=== PATIENT | female | born 1945 | race Caucasian/White ===

== ENCOUNTER → 2016-10-07 | Outpatient (CLI) | payer OTHER | LOC: MMPC 10:00 | PROVIDERS: ATTEND Orthopaedic Surgery | DX: M54.5 Low back pain (principal); M17.12 Unilateral primary osteoarthritis, left knee | CPT/HCPCS: 99213; G0463 ==

== ENCOUNTER → 2016-10-16 | Outpatient (CLI) | payer OTHER ==
--- NOTE | 2016-10-16 18:37 | DI ---
History low back pain with sciatic component. Procedure: Study performed on 1.5 [place] magnet and sagittal and axial projection with a variety of im aging sequences. Comparison examination: L-spine study dated 09/13/16 alignment is anatomic. The conus medullaris is well accommodated. T10-T11 shows normal discovertebral complex T11-T12 shows minimal posterior disc protrusion. No focal nerve record encroachment seen, however. Di scogenic pain may be present based upon protrusion T12-L1 is unremarkable. L1-L2 shows mild disc protrusion posteriorly without nerve encroachment. Discogenic pain may be prese nt.. L2-L3 shows widely patent foramina. Minimal posterior disc bulge L3-L4 shows moderate disc protrusion suggesting annular tear. The protrusion extends across the width of the disc space but no focal nerve encroachment is identified and no spinal stenosis is present. L4-L5 is unremarkable L5-S1 shows a mild degree of posterior disc protrusion. No foramen is narrowed. Facets are only mildly hypertrophic. Impression: Multilevel disc protrusions documented at T11-T12, L1-L2, L2-L3 and L5-S1. The disc protrusion is most evident at L3-4 indicating annular tear and this extends across the width of the disc margin. No focal nerve root encroachment is documented, however.
== END ==
LOC: MRI 08:34
PROVIDERS: ATTEND Orthopaedic Surgery
DX: M54.5 Low back pain (principal); M51.24 Other intervertebral disc displacement, thoracic region; M51.26 Other intervertebral disc displacement, lumbar region; M51.27 Other intervertebral disc displacement, lumbosacral region
CPT/HCPCS: 72148

== ENCOUNTER → 2016-10-17 | Outpatient (CLI) | payer OTHER | LOC: MMPC 09:00 | PROVIDERS: ATTEND Family Medicine | DX: Z79.01 Long term (current) use of anticoagulants (principal); Z51.81 Encounter for therapeutic drug level monitoring; Z95.2 Presence of prosthetic heart valve | CPT/HCPCS: 85610 ==

== ENCOUNTER → 2016-10-31 | Outpatient (CLI) | payer OTHER | LOC: MMPC 10:00 | PROVIDERS: ATTEND Orthopaedic Surgery | DX: M70.62 Trochanteric bursitis, left hip (principal) | CPT/HCPCS: 20610 ×2; 99213; G0463; J0702 ==

== ENCOUNTER → 2016-11-01 | Outpatient (CLI) | payer OTHER ==
[2016-11-01 12:37] LABS: BILIRUBIN,URINE NEGATIVE (NEG); CLARITY,URINE Slightly Clo (CLEAR); GLUCOSE, URINE (UA) NEGATIVE (NEG); LEUKOCYTE ESTERASE ,URINE NEGATIVE (NEG); NITRATE,URINE POSITIVE (NEG); OCCULT BLOOD,URINE Trace-intact (NEG); PROTEIN,URINE NEGATIVE (NEG); UROBILINOGEN,URINE 0.2 mg/dL (0.2)
[2016-11-01 12:42] LABS: URINE SAMPLE TYPE CLEAN CATCH URINE
[2016-11-01 12:44] LABS: BACTERIA,URINE MANY; SQUAMOUS EPITHELIAL CELL,UR RARE
== END ==
LOC: MOB LAB 10:28
PROVIDERS: ATTEND Nurse Practitioner Family
DX: R30.0 Dysuria (principal); N30.00 Acute cystitis without hematuria; R82.99 Other abnormal findings in urine
CPT/HCPCS: 81001; 87077; 87088; 87186

== ENCOUNTER → 2016-11-05 | Outpatient (CLI) | payer OTHER ==
[2016-11-05 12:20] LABS: ASPARTATE AMINO TRANSFERASE 28 IU/L (8-39); BILIRUBIN,TOTAL 0.4 mg/dL (0.3-1.2); BLOOD UREA NITROGEN 17 mg/dL (7-22); BUN/CREATININE RATIO 21.25 (6-20); CALCIUM 10.1 mg/dL (8.7-10.7); CHLORIDE 99 meq/L (98-112); CREATININE 0.8 mg/dL (0.50-1.20); EST GLOMERULAR FILTRATION > 60 (>60 ml/min/1.73m(2)); GLUCOSE 106 mg/dL (78-110); HDL CHOLESTEROL 48 mg/dL (40-150); SODIUM 136 meq/L (135-145); TRIGLYCERIDES 337 mg/dL (44-200)
[2016-11-05 13:17] LABS: FREE T4 (FREE THYROXINE) 1.34 ng/dL (0.93-1.71)
== END ==
LOC: MOB LAB 10:57
PROVIDERS: ATTEND Nurse Practitioner Family
DX: I10 Essential (primary) hypertension (principal); E03.9 Hypothyroidism, unspecified; E78.5 Hyperlipidemia, unspecified
CPT/HCPCS: 36415; 80048; 82247; 82465; 82550; 82977; 83718; 84075; 84439; 84443; 84450; 84460; 84478

== ENCOUNTER → 2016-11-12 | Outpatient (CLI) | payer OTHER | LOC: MMPC 10:00 | PROVIDERS: ATTEND Physician Assistant | DX: M62.838 Other muscle spasm (principal); R09.89 Other specified symptoms and signs involving the circulatory and respiratory systems; S22.000S Wedge compression fracture of unspecified thoracic vertebra, sequela; G95.9 Disease of spinal cord, unspecified; G40.109 Localization-related (focal) (partial) symptomatic epilepsy and epileptic syndromes with simple partial seizures, not intractable, without status epilepticus | CPT/HCPCS: 99214; G0463 ==

== ENCOUNTER → 2016-11-13 | Outpatient (CLI) | payer OTHER | LOC: MMPC 09:00 | PROVIDERS: ATTEND Nurse Practitioner Family | DX: Z79.01 Long term (current) use of anticoagulants (principal); Z51.81 Encounter for therapeutic drug level monitoring; Z95.2 Presence of prosthetic heart valve | CPT/HCPCS: 85610; 99203 ==

== ENCOUNTER → 2016-11-15 | Outpatient (CLI) | payer OTHER ==
[2016-11-15 10:14] LABS: BILIRUBIN,URINE NEGATIVE (NEG); CLARITY,URINE CLEAR (CLEAR); GLUCOSE, URINE (UA) NEGATIVE (NEG); LEUKOCYTE ESTERASE ,URINE TRACE (NEG); NITRATE,URINE NEGATIVE (NEG); OCCULT BLOOD,URINE NEGATIVE (NEG); PROTEIN,URINE TRACE mg/dl (NEG); UROBILINOGEN,URINE 0.2 mg/dL (0.2)
[2016-11-15 10:15] LABS: URINE SAMPLE TYPE CLEAN CATCH URINE
[2016-11-15 10:27] LABS: BACTERIA,URINE FEW; RBC,URINE 0-2 /hpf; SQUAMOUS EPITHELIAL CELL,UR FEW
== END ==
LOC: MOB LAB 09:44
PROVIDERS: ATTEND Nurse Practitioner Family
DX: R31.9 Hematuria, unspecified (principal)
CPT/HCPCS: 81001

== ENCOUNTER → 2016-11-19 | Outpatient (CLI) | payer OTHER ==
--- NOTE | 2016-11-19 10:53 | DI ---
MRI BRAIN W/O CN,11/19/2016 8:46 AM: Clinical History: Focal motor seizure. Previous Exam: None at this facility. Findings: Multiplanar MR images are obtained through the brain without contrast, and demonstrate normal, symmet natan ventricles with some mild diffuse age-related volume loss. There are 3 distinct foci of abnormally restricted diffusion within the right subcortical white matte r involving the frontal and parietal white matter. There is no mass, hemorrhage or midline shift. There are multiple scattered areas of increased FLAIR and T2 signal which correspond with the new areas of restricted diffusion, but several others which a re more chronic. The cerebellopontine angles are unremarkable. The intraorbital structures and paranasal sinuses are u nremarkable. Visualized portions of the upper cervical spine are within normal limits. The posterior fossa is norm al without evidence of Chiari malformation. Major vascular flow voids are unremarkable. Impression: New scattered areas of restricted diffusion within the right subcortical white matter consistent with small white matter ischemic events which have occurred within the last 21 days.
--- NOTE | 2016-11-19 11:14 | DI ---
US CAROTIDS B/L,11/19/2016 8:46 AM: Clinical History: Carotid bruit Previous Exam: August 25, 2014 Findings: Multiple grayscale and color Doppler sonographic images are obtained through the carotid systems bila terally. The right common carotid artery demonstrates a highly resistive waveform with a large amount of spect ral broadening. The flow is relatively slow with peak systolic velocities below 60 cm/s. There is a l arge amount of plaque formation throughout the entire right common carotid artery, bulb and the inter nal carotid artery. The left carotid system demonstrates a large amount of peripheral vascular disease as well with dominic l-appearing waveforms but with some elevated peak systolic velocity measuring 177 cm/s within the lef t common carotid artery. The ICA to CCA ratio on the right measured 1.2, left measured 0.5. The vertebral arteries demonstrate antegrade flow bilaterally. Impression: 1. Resistive, turbulent waveforms throughout the entire right carotid system with relatively low peak systolic velocities. This is worrisome for a stenosis of greater than 95% in the distal internal car otid artery. 2. Elevated peak systolic velocity within the left common carotid artery with relatively normal wavef orms. This corresponds with an estimated stenosis on the left of between 50 and 69%.
== END ==
LOC: MRI 08:39
PROVIDERS: ATTEND Physician Assistant
DX: G40.109 Localization-related (focal) (partial) symptomatic epilepsy and epileptic syndromes with simple partial seizures, not intractable, without status epilepticus (principal); R09.89 Other specified symptoms and signs involving the circulatory and respiratory systems
CPT/HCPCS: 70551; 93880

== ENCOUNTER → 2016-11-20 | Outpatient (CLI) | payer OTHER ==
--- NOTE | 2016-11-20 09:42 | DI ---
MRI CERVICAL SPINE W/O CN,11/20/2016 8:49 AM: Clinical History: Cervical myelopathy. Previous Exam: None at this facility. Findings: Multiplanar MR images are obtained through the cervical spine without contrast. Bony alignment is anatomic. No fractures are seen. Marrow signal is preserved. Vertebral body height is preserved. The posterior fossa is unremarkable. The major vascular flow voids are unremarkable. The prevertebral soft tissues are unremarkable. The spinal cord descends normally with normal course, caliber and signal characteristics. There is no evidence of Chiari malformation. Individual intervertebral disc spaces: C2/C3: No significant stenosis. C3/4: There is some disc desiccation and a 2 mm broad-based disc bulge eccentric to the left with lj e uncovertebral joint osteophytes contributing to mild left neural foraminal narrowing and mild centr al canal stenosis. C4/5: No significant stenosis. C5/6: No significant stenosis. C6/7: There is mild disc desiccation and a 2 mm broad-based disc bulge combining with some mild facet hypertrophy to cause no significant central canal nor neural foraminal narrowing. C7/T1: No significant stenosis. Impression: C3/4: There is some disc desiccation and a 2 mm broad-based disc bulge eccentric to the left with lj e uncovertebral joint osteophytes contributing to mild left neural foraminal narrowing and mild centr al canal stenosis. C4/5: No significant stenosis. C5/6: No significant stenosis. C6/7: There is mild disc desiccation and a 2 mm broad-based disc bulge combining with some mild facet hypertrophy to cause no significant central canal nor neural foraminal narrowing.
== END ==
LOC: MRI 08:39
PROVIDERS: ATTEND Physician Assistant
DX: G95.89 Other specified diseases of spinal cord (principal); M47.22 Other spondylosis with radiculopathy, cervical region
CPT/HCPCS: 72141

== ENCOUNTER → 2016-11-26 | Outpatient (CLI) | payer OTHER ==
[2016-11-26 09:24] LABS: BASOPHILS # (AUTO) 0.09 10*3/UL; BASOPHILS % (AUTO) 1.4 % (0-1); HEMATOCRIT 27.5 % (37.0-47.0); HEMOGLOBIN 8.2 g/dL (12.0-16.0); IMM GRAN % (AUTO) 0.2 % (0-5); IMM GRAN# (AUTO) 0.01 10*3/UL; LYMPHOCYTES # (AUTO) 1.62 10*3/uL; LYMPHOCYTES % (AUTO) 24.8 % (10-50); MEAN CORPUSCULAR HEMOGLOBIN 19.6 PG (27-31); MEAN CORPUSCULAR HGB CONC 29.8 g/dL (33-37); MEAN PLATELET VOLUME 9.9 FL (7.4-12.2); MONOCYTES # (AUTO) 0.52 10*3/UL (0.3-0.8); NEUTROPHILS # (AUTO) 4.17 10*3/UL; NEUTROPHILS % (AUTO) 63.6 % (50-80); RED BLOOD COUNT 4.18 10^6/uL (4.20-5.40); WHITE BLOOD COUNT 6.54 10^3/uL (4.8-10.8)
[2016-11-26 09:51] LABS: ASPARTATE AMINO TRANSFERASE 20 IU/L (8-39); BILIRUBIN,TOTAL 0.3 mg/dL (0.3-1.2); BLOOD UREA NITROGEN 20 mg/dL (7-22); CALCIUM 9.4 mg/dL (8.7-10.7); CHLORIDE 104 meq/L (98-112); CREATININE 0.8 mg/dL (0.50-1.20); EST GLOMERULAR FILTRATION > 60 (>60 ml/min/1.73m(2)); GLUCOSE 122 mg/dL (78-110); POTASSIUM 4.1 meq/L (3.8-5.2); SODIUM 140 meq/L (135-145)
[2016-11-26 10:06] LABS: PLATELET MORPHOLOGY COMMENT NORMAL MORPHOLOGY (NORM)
== END ==
LOC: LAB 09:00
PROVIDERS: ATTEND Radiology Diagnostic Radiology
DX: I65.21 Occlusion and stenosis of right carotid artery (principal)
CPT/HCPCS: 36415; 80053; 85025; 85610; 85730

== ENCOUNTER → 2016-12-12 | Outpatient (CLI) | payer OTHER | LOC: MMPC 09:00 | PROVIDERS: ATTEND Nurse Practitioner Family | DX: I63.8 Other cerebral infarction (principal); Z79.01 Long term (current) use of anticoagulants; Z51.81 Encounter for therapeutic drug level monitoring; Z95.2 Presence of prosthetic heart valve | CPT/HCPCS: 85610; 99214; G0463 ==

== ENCOUNTER → 2016-12-17 | Outpatient (CLI) | payer OTHER | LOC: MMPC 09:00 | PROVIDERS: ATTEND Nurse Practitioner Family | DX: Z79.01 Long term (current) use of anticoagulants (principal); Z51.81 Encounter for therapeutic drug level monitoring; Z95.2 Presence of prosthetic heart valve; I25.810 Atherosclerosis of coronary artery bypass graft(s) without angina pectoris; M81.0 Age-related osteoporosis without current pathological fracture; D50.9 Iron deficiency anemia, unspecified | CPT/HCPCS: 85610; 99214; G0463 ==

== ENCOUNTER → 2016-12-17 | Outpatient (CLI) | payer OTHER | LOC: MMPC 11:11 | PROVIDERS: ATTEND Internal Medicine | DX: I70.90 Unspecified atherosclerosis (principal); I73.9 Peripheral vascular disease, unspecified; M81.0 Age-related osteoporosis without current pathological fracture; F32.9 Major depressive disorder, single episode, unspecified; E78.5 Hyperlipidemia, unspecified; D64.89 Other specified anemias; Z79.01 Long term (current) use of anticoagulants; Z51.81 Encounter for therapeutic drug level monitoring; Z95.2 Presence of prosthetic heart valve ==

== ENCOUNTER → 2016-12-27 | Outpatient (CLI) | payer OTHER ==
[2016-12-27 10:20] LABS: BASOPHILS # (AUTO) 0.03 10*3/UL; BASOPHILS % (AUTO) 0.4 % (0-1); EOSINOPHILS # (AUTO) 0.22 10*3/UL; EOSINOPHILS % (AUTO) 3.1 % (0-8); HEMATOCRIT 26.3 % (37.0-47.0); HEMOGLOBIN 8.1 g/dL (12.0-16.0); LYMPHOCYTES # (AUTO) 1.25 10*3/uL; MEAN CORPUSCULAR HEMOGLOBIN 26.3 PG (27-31); MEAN CORPUSCULAR HGB CONC 30.8 g/dL (33-37); MEAN CORPUSCULAR VOLUME 85.4 FL (81-99); MEAN PLATELET VOLUME 10.8 FL (7.4-12.2); MONOCYTES # (AUTO) 0.43 10*3/UL (0.3-0.8); MONOCYTES % (AUTO) 6.1 % (5-15); NEUTROPHILS # (AUTO) 5.15 10*3/UL; NEUTROPHILS % (AUTO) 72.7 % (50-80); RED BLOOD COUNT 3.08 10^6/uL (4.20-5.40)
[2016-12-27 10:46] LABS: CHOL/HDL RATIO 4.88 RATIO (0-4.0); LDL CHOLESTEROL,CALCULATED 99.6 mg/dL
[2016-12-27 10:55] LABS: PLATELET MORPHOLOGY COMMENT NORMAL MORPHOLOGY (NORM); RBC MORPHOLOGY COMMENT SEE COMMENTS (NORM); WBC MORPHOLOGY COMMENT NORMAL MORPHOLOGY (NORM)
[2016-12-27 11:12] LABS: FREE T4 (FREE THYROXINE) 1.23 ng/dL (0.93-1.71)
== END ==
LOC: MOB LAB 09:41
PROVIDERS: ATTEND Nurse Practitioner Family
DX: D50.9 Iron deficiency anemia, unspecified (principal); E78.5 Hyperlipidemia, unspecified; I10 Essential (primary) hypertension; I70.90 Unspecified atherosclerosis; Z79.01 Long term (current) use of anticoagulants; Z51.81 Encounter for therapeutic drug level monitoring; Z95.2 Presence of prosthetic heart valve
CPT/HCPCS: 36415; 80061; 84439; 84443; 85025; 85610

== ENCOUNTER → 2016-12-28 | Outpatient (CLI) | payer OTHER ==
[2016-12-28 12:49] LABS: HEMATOCRIT 27.5 % (37.0-47.0); HEMOGLOBIN 8.6 g/dL (12.0-16.0)
== END ==
LOC: LAB 12:15
PROVIDERS: ATTEND Radiology Diagnostic Radiology
DX: D50.9 Iron deficiency anemia, unspecified (principal)
CPT/HCPCS: 36415; 85014; 85018

== ENCOUNTER → 2016-12-31 | Outpatient (CLI) | payer OTHER | LOC: MMPC 09:00 | PROVIDERS: ATTEND Internal Medicine | DX: Z79.01 Long term (current) use of anticoagulants (principal); Z51.81 Encounter for therapeutic drug level monitoring; Z95.2 Presence of prosthetic heart valve | CPT/HCPCS: 85610 ==

== ENCOUNTER → 2017-01-02 | Outpatient (CLI) | payer OTHER | LOC: MMPC 09:00 | PROVIDERS: ATTEND Internal Medicine | DX: Z79.01 Long term (current) use of anticoagulants (principal); Z51.81 Encounter for therapeutic drug level monitoring; Z95.2 Presence of prosthetic heart valve | CPT/HCPCS: 85610 ==

== ENCOUNTER → 2017-01-03 | Outpatient (CLI) | payer OTHER ==
[2017-01-03 11:01] LABS: HEMATOCRIT 27.3 % (37.0-47.0); HEMOGLOBIN 8.1 g/dL (12.0-16.0)
== END ==
LOC: MOB LAB 10:43
PROVIDERS: ATTEND Nurse Practitioner
DX: K92.1 Melena (principal); R71.0 Precipitous drop in hematocrit; Z09 Encounter for follow-up examination after completed treatment for conditions other than malignant neoplasm; Z87.19 Personal history of other diseases of the digestive system; Z79.01 Long term (current) use of anticoagulants
CPT/HCPCS: 36415; 85014; 85018; 99214; G0463

== ENCOUNTER → 2017-01-04 | Outpatient (CLI) | payer OTHER ==
[2017-01-04 14:08] LABS: HEMATOCRIT 28.4 % (37.0-47.0); HEMOGLOBIN 8.3 g/dL (12.0-16.0)
== END ==
LOC: LAB 13:55
PROVIDERS: ATTEND Nurse Practitioner
DX: K92.1 Melena (principal); R53.1 Weakness
CPT/HCPCS: 36415; 85014; 85018

== ENCOUNTER → 2017-01-09 | Outpatient (CLI) | payer OTHER ==
[2017-01-09 09:51] LABS: HEMOGLOBIN A1C 5.19 % (4.2-6.0)
== END ==
LOC: LAB 09:30
PROVIDERS: ATTEND Internal Medicine
DX: D50.9 Iron deficiency anemia, unspecified (principal); Z95.2 Presence of prosthetic heart valve; Z79.899 Other long term (current) drug therapy
CPT/HCPCS: 36415; 83036; 85018; 85610

== ENCOUNTER → 2017-01-16 | Outpatient (CLI) | payer OTHER | LOC: MMPC 09:00 | PROVIDERS: ATTEND Internal Medicine | DX: Z79.01 Long term (current) use of anticoagulants (principal); Z51.81 Encounter for therapeutic drug level monitoring; Z95.2 Presence of prosthetic heart valve | CPT/HCPCS: 85610 ==

== ENCOUNTER → 2017-01-21 | Outpatient (CLI) | payer OTHER | LOC: MMPC 09:00 | PROVIDERS: ATTEND Internal Medicine | DX: Z79.01 Long term (current) use of anticoagulants (principal); Z51.81 Encounter for therapeutic drug level monitoring; Z95.2 Presence of prosthetic heart valve | CPT/HCPCS: 85610 ==

== ENCOUNTER → 2017-01-27 | Outpatient (CLI) | payer OTHER | LOC: MMPC 09:00 | PROVIDERS: ATTEND Internal Medicine | DX: Z79.01 Long term (current) use of anticoagulants (principal); Z51.81 Encounter for therapeutic drug level monitoring; Z95.2 Presence of prosthetic heart valve | CPT/HCPCS: 85610 ==

== ENCOUNTER → 2017-02-03 | Outpatient (CLI) | payer OTHER ==
--- NOTE | 2017-02-03 17:07 | DI ---
XR ABDOMEN (KUB) SERGEI HEWITT,02/03/2017 2:19 PM: Clinical History: Abnormal serum iron levels. Previous Exam: None at this facility. 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 Mild degenerative changes of the spine are seen. Patient is status post vertebroplasty at multiple le vels of the thoracic spine. Postsurgical changes are seen within the chest. There is no free air. Postsurgical changes are seen of the groin area bilaterally. Impression: No acute findings.
== END ==
LOC: RAD 14:05
PROVIDERS: ATTEND Internal Medicine Gastroenterology
DX: R79.89 Other specified abnormal findings of blood chemistry (principal); D50.9 Iron deficiency anemia, unspecified
CPT/HCPCS: 74000

== ENCOUNTER → 2017-02-03 | Outpatient (CLI) | payer OTHER ==
[2017-02-03 09:34] LABS: BASOPHILS # (AUTO) 0.09 10*3/UL; EOSINOPHILS # (AUTO) 0.22 10*3/UL; EOSINOPHILS % (AUTO) 2.3 % (0-8); HEMOGLOBIN 10.3 g/dL (12.0-16.0); LYMPHOCYTES # (AUTO) 1.88 10*3/uL; MEAN CORPUSCULAR HEMOGLOBIN 25.2 PG (27-31); MEAN CORPUSCULAR HGB CONC 31.2 g/dL (33-37); MEAN CORPUSCULAR VOLUME 80.7 FL (81-99); MEAN PLATELET VOLUME 10.8 FL (7.4-12.2); MONOCYTES # (AUTO) 0.64 10*3/UL (0.3-0.8); MONOCYTES % (AUTO) 6.8 % (5-15); NEUTROPHILS # (AUTO) 6.61 10*3/UL; NEUTROPHILS % (AUTO) 69.8 % (50-80); RED BLOOD COUNT 4.09 10^6/uL (4.20-5.40)
[2017-02-03 10:14] LABS: PLATELET MORPHOLOGY COMMENT NORMAL MORPHOLOGY (NORM); RBC MORPHOLOGY COMMENT NORMAL MORPHOLOGY (NORM); WBC MORPHOLOGY COMMENT NORMAL MORPHOLOGY (NORM)
[2017-02-03 12:04] LABS: BUN/CREATININE RATIO 42.85 (6-20); CALCIUM 9.4 mg/dL (8.7-10.7); CHOL/HDL RATIO 6.47 RATIO (0-4.0)
[2017-02-03 12:34] LABS: FREE T4 (FREE THYROXINE) 0.99 ng/dL (0.93-1.71)
== END ==
LOC: LAB 09:11
PROVIDERS: ATTEND Internal Medicine
DX: E03.9 Hypothyroidism, unspecified (principal); E78.5 Hyperlipidemia, unspecified; D50.9 Iron deficiency anemia, unspecified; I10 Essential (primary) hypertension
CPT/HCPCS: 36415; 80048; 82247; 82465; 82550; 82977; 83718; 84075; 84439; 84443; 84450; 84460; 84478; 85025

== ENCOUNTER → 2017-02-04 | Outpatient (CLI) | payer OTHER ==
[2017-02-04 08:48] LABS: HEMATOCRIT 31.6 % (37.0-47.0); HEMOGLOBIN 9.9 g/dL (12.0-16.0); MEAN CORPUSCULAR HEMOGLOBIN 25.4 PG (27-31); MEAN CORPUSCULAR HGB CONC 31.3 g/dL (33-37); MEAN CORPUSCULAR VOLUME 81.2 FL (81-99); MEAN PLATELET VOLUME 10.6 FL (7.4-12.2); RED BLOOD COUNT 3.89 10^6/uL (4.20-5.40)
== END ==
LOC: LAB 08:26
PROVIDERS: ATTEND Internal Medicine
DX: K92.1 Melena (principal)
CPT/HCPCS: 85027

== ENCOUNTER 2017-02-05 08:33 | Outpatient (CLI) | payer OTHER ==
[2017-02-05 09:08] LABS: HEMATOCRIT 25.7 % (37.0-47.0); MEAN CORPUSCULAR HEMOGLOBIN 25.6 PG (27-31); MEAN CORPUSCULAR HGB CONC 31.1 g/dL (33-37); MEAN CORPUSCULAR VOLUME 82.1 FL (81-99); MEAN PLATELET VOLUME 10.7 FL (7.4-12.2); RED BLOOD COUNT 3.13 10^6/uL (4.20-5.40)
[2017-02-05] MEDS ORDERED: NORMAL SALINE 10 ML SYRINGE FLUSH IVP PRN (13:00)
[2017-02-05] MEDS ORDERED: NS 500 ML for Blood Transfusion PRIMARY IV SCH (15:00)
[2017-02-05] MEDS ORDERED: Sodium Chloride 0.9% 500 ML PRIMARY IV ONE (15:11)
[2017-02-05 15:19] LABS: HEMATOCRIT 22.5 % (37.0-47.0); MEAN CORPUSCULAR HEMOGLOBIN 25.3 PG (27-31); MEAN CORPUSCULAR HGB CONC 31.1 g/dL (33-37); MEAN CORPUSCULAR VOLUME 81.2 FL (81-99); MEAN PLATELET VOLUME 10.7 FL (7.4-12.2); RED BLOOD COUNT 2.77 10^6/uL (4.20-5.40)
[2017-02-05 20:50] VITALS: RESP 18
[2017-02-06 03:26] VITALS: TEMP 97.6
== END 2017-02-05 22:30 | disposition short-term general hospital (02) ==
LOC: IV THERAPY 08:33 → LAB 08:33 → IV THERAPY 22:30
PROVIDERS: ATTEND Internal Medicine
DX: D50.9 Iron deficiency anemia, unspecified (principal); K92.1 Melena
CPT/HCPCS: 36415; 36430 ×2; 85027; 86850; 86900; 86901; 86922; 99211; P9016; J7040

== ENCOUNTER 2017-02-05 17:35 | Emergency (ER) | payer OTHER ==
[2017-02-05 19:02] LABS: BASOPHILS # (AUTO) 0.05 10*3/UL; BASOPHILS % (AUTO) 0.4 % (0-1); EOSINOPHILS % (AUTO) 0.9 % (0-8); HEMATOCRIT 24.7 % (37.0-47.0); HEMOGLOBIN 7.8 g/dL (12.0-16.0); LYMPHOCYTES # (AUTO) 1.99 10*3/uL; MEAN CORPUSCULAR HEMOGLOBIN 25.7 PG (27-31); MEAN CORPUSCULAR HGB CONC 31.6 g/dL (33-37); MEAN CORPUSCULAR VOLUME 81.5 FL (81-99); MEAN PLATELET VOLUME 10.7 FL (7.4-12.2); MONOCYTES # (AUTO) 0.65 10*3/UL (0.3-0.8); MONOCYTES % (AUTO) 5.7 % (5-15); NEUTROPHILS # (AUTO) 8.67 10*3/UL; NEUTROPHILS % (AUTO) 75.4 % (50-80); RBC MORPHOLOGY COMMENT NORMAL MORPHOLOGY (NORM); RED BLOOD COUNT 3.03 10^6/uL (4.20-5.40)
[2017-02-05 19:03] LABS: PLATELET MORPHOLOGY COMMENT NORMAL MORPHOLOGY (NORM); WBC MORPHOLOGY COMMENT NORMAL MORPHOLOGY (NORM)
[2017-02-05 19:11] LABS: BUN/CREATININE RATIO 48.75 (6-20); CALCIUM 8.6 mg/dL (8.7-10.7); SERUM ALBUMIN 3.2 g/dL (3.5-4.8)
--- NOTE | 2017-02-06 00:33 | PDOC ---
General Adult HPI - General Chief Complaint: General Medical Stated Complaint: TRANSFER ASSIST/ANEMIA Date Seen by Provider: 02/05/17 Time Seen by Provider: 17:35 Source: POSITIVE: Patient, RN/MD, Old records Exam Limitations: POSITIVE: No limitations Nurse's Notes Reviewed & Considered: Yes - History of Present Illness Initial Comment: The patient is a 72-year-old female. Patient has a history of gastrointestinal bleeding, of uncertain source. She has been evaluated by gastroenterology at the [facility] has had an upper endoscopy and lower endoscopy without a site being found. She states that she recently had a cinematographic study of the bowel in which she" swallowed camera". The results of this study have not yet been returned. Review of old records shows that she has had anemia going back to at least July 2016, and she has required blood transfusions in the past. She had a CBC done at 0836 this morning and her hematocrit at that time was 25.7 and her hemoglobin was 8.0. Patient's primary care provider, Dr. Bedoya, ordered that the patient be transfused with 2 units of packed red blood cells. Patient was having her transfusion and repeat hemoglobin and hematocrit at 1513 showed her hematocrit to be 22.5 and her hemoglobin 7.0. At this point the patient's primary care provider contacted gastroenterology in [place], Dr. Schuler, who accepted the patient in transfer. Patient has a history of having had a mechanical aortic valve placed and is therefore on Coumadin 2 mg on Friday and 4 mg one every other day of the week. Patient states that she has been very tired lately. She has had some Blacks stool for the past 4-5 days. She states she's not had diarrhea and her last bowel movement was yesterday. No nausea or vomiting. No syncope or presyncope. No chest pain and no abdominal pain. Patient had her transfusion started in IV therapy, and then was transferred down to the emergency room to arrange for transfer. Have you received a tetanus shot in the past 10 years?: Yes Body Location Affected: REPORTS: Abdomen (Gastrointestinal bleeding with anemia) Timing: REPORTS: Intermittent (As above) Duration: >24 hours (Dark stool for the past 3 or 4 days.) Severity: Moderate Quality: REPORTS: Other (No pain anywhere) Context: REPORTS: None Modifying Factors: improves with: Nothing Similar Symptoms Previously: Yes Recent Care Received: REPORTS: Recently Seen, Treated by MD (As above) Any Prior Injuries Related to Current Complaint?: No - Patient Home Medications Home Medications: Home Medications Calcium Carbonate/Vitamin D3 [Calcium 500+D Tablet Chew] 1 each PO BID tab 12/18 Cholecalciferol (Vitamin D3) [Vitamin D-3] 1 cap PO QD cap 03/09/15 Denosumab [Prolia] 60 mg SUBCUT ONCE #1 ml 03/09/15 Pantoprazole Sodium 1 tab PO BID #60 tab 10/27/15 Albuterol Sulfate [Proair Hfa] 2 puff INH Q4-6H #1 inh 07/26/16 Magnesium Gluconate 1 tab PO BID tab 08/01/16 Warfarin Sodium [Coumadin] 2 tab PO QPM #60 tab 08/05/16 Levothyroxine Sodium 1 tab PO QAM #90 tab 11/05/16 Losartan Potassium 1 tab PO DAILY #90 tab 11/05/16 Mirtazapine [Remeron] 0.5 tab PO QHS #45 tab 11/05/16 Oxybutynin Chloride [Oxybutynin Chloride Er] 1 tab PO DAILY #90 tab 11/05/16 Pravastatin Sodium [Pravachol] 1 tab PO DAILY #90 tab 11/05/16 Venlafaxine HCl [Venlafaxine Hcl Er] 1 cap PO DAILY #90 cap 11/05/16 Clopidogrel Bisulfate [Plavix] 1 tab PO DAILY tab 12/12/16 Amlodipine Besylate 1 tab PO DAILY #30 tab 01/09/17 Metoprolol Succinate 1 tab PO DAILY #30 tab 01/09/17 Potassium Chloride 1 tab PO QD #30 tab 01/09/17 - Patient Allergies Allergies/Adverse Reactions: Allergies Allergy/AdvReac Type Severity Reaction Status Date / Time kiwi Allergy Intermediate SWELLING Verified 02/05/17 14:16 No Known Drug Allergies Allergy none Verified 02/05/17 14:16 [place] Allergy Intermediate VOMITING Uncoded 02/05/17 14:16 cucumber Allergy Intermediate VOMITING Uncoded 02/05/17 14:16 Past Medical History - heen HEENT History: Denies History Cardiovascular History: Hypertension, Hyperlipidemia Respiratory History: Denies History Gastrointestinal History: GERD Genitourinary History: Denies History Endocrine History: Hypothyroidism Musculoskeletal History: Denies History Prosthesis or Implant: No Neurological History: Denies History Blood Disorders: Anemia In Past Year Been Physically Harmed or Verbally Threatened: No History of MDRO: No Tobacco Use: Former Smoker Alcohol Use: None Substance Use Type: None Past Medical History Reviewed: Reviewed - No Changes ROS - Limitations ROS Limitations: No Limitations Constitution: REPORTS: Other (Fatigability) Cardiovascular: REPORTS: Denies Cardiac Symptoms Respiratory: REPORTS: Denies Resp Symptoms Neurological: REPORTS: Denies Neuro Symptoms Gastrointestinal: REPORTS: Black Stools Endocrine: REPORTS: Fatigue Musculoskeletal: REPORTS: Denies MS Symptoms Genitourinary: REPORTS: Denies Symptoms Eyes: REPORTS: Denies Symptoms ENT: REPORTS: Denies Symptoms Skin: REPORTS: Denies Skin Symptoms Lympathic: REPORTS: Denies Lympathic Symptoms Immunologic: POSITIVE: Denies Symptoms Psychiatric: POSITIVE: Denies Psych Symptoms General Adult Exam - General Appearance General Appearance: POSITIVE: Alert, Cooperative, No Acute Distress, No Evidence of Trauma - HEENT HEENT: POSITIVE: Head Inspection Nml, Eyes Inspection Nml, Ears Inspection Nml, Nose Inspection Nml, Oral/Dental Inspect. Nml, Pharynx Inspect. Nml, PERRL, EOMI - Pupils Pupil Size: 3 mm: Bilateral (PERRLA) - Neck Neck: POSITIVE: Normal Inspection, Thyroid Normal - Respiratory Respiratory: POSITIVE: No Respiratory Distress, Breath Sounds Normal, Chest Non- Tender - Cardiovascular Cardiovascular: POSITIVE: Regular Rate & Rhythm, No Murmur, No Gallop, PMI Normal Peripheral Pulses: Radial (R): 2+, Radial (L): 2+ - Abdomen Abdomen: Soft: (All Quadrants), Normal Bowel Sounds: (All Quadrants), Denies Tenderness: (All Quadrants), No Splenomegaly: (All Quadrants), No Hepatomegaly: (All Quadrants), No Guarding: (All Quadrants), No Rebound: (All Quadrants), No Palpable Pulse: (All Quadrants), No Palpabale Mass: (All Quadrants), No Distention: (All Quadrants), No Rigidity: (All Quadrants) - Skin Skin: POSITIVE: Normal Color, Warm, Dry, No Rash - Extremities Extremity: Non-Tender: (All Extremities), Normal ROM: (All Extremities), Normal Inspection: (All Extremities) - Neurological / Psychological Neurological: POSITIVE: Affect Apporpriate, 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, 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 Normal As Tested, Motor Normal, Sensation Normal General Adult Progress - Results Reviewed by me Lab Results Reviewed: Yes (hemoglobin, hematocrit and INR as below) Lab Results:: Laboratory Results 02/05/17 Range/Units 18:58 WBC 11.50 H (4.8-10.8) 10^3/uL RBC 3.03 L (4.20-5.40) 10^6/uL Hgb 7.8 L (12.0-16.0) g/dL Hct 24.7 L (37.0-47.0) % MCV 81.5 (81-99) FL MCH 25.7 L (27-31) PG MCHC 31.6 L (33-37) g/dL RDW Std Deviation 54.0 H (39-50) fL RDW Coeff of Blanca 18.7 H (11.5-14.5) % Plt Count 313 (140-350) 10*3/uL MPV 10.7 (7.4-12.2) FL Immature Gran % (Auto) 0.3 (0-5) % Neut % (Auto) 75.4 (50-80) % Lymph % (Auto) 17.3 (10-50) % [place] % (Auto) 5.7 (5-15) % Eos % (Auto) 0.9 (0-8) % Baso % (Auto) 0.4 (0-1) % Immature Gran # (Auto) 0.04 10*3/UL Neut # (Auto) 8.67 10*3/UL Lymph # (Auto) 1.99 10*3/uL [place] # (Auto) 0.65 (0.3-0.8) 10*3/UL Eos # (Auto) 0.10 10*3/UL Baso # (Auto) 0.05 10*3/UL WBC Morphology Comment Normal morphology (NORM) Plt Morphology Comment Normal morphology (NORM) RBC Morph Comment Normal morphology (NORM) PT 28.8 H (9.7-11.4) secs INR 2.74 (0.00-5.90) N/A APTT 36.9 H (22.6-31.3) SECS Sodium 134 L D (135-145) meq/L Potassium 4.2 (3.8-5.2) meq/L Chloride 106 (98-112) meq/L Carbon Dioxide 20 L (23-33) meq/L Anion Gap 8 (5-20) BUN 39 H (7-22) mg/dL Creatinine 0.8 (0.50-1.20) mg/dL Estimated GFR (>60 ml/min/1.73m(2)) BUN/Creatinine Ratio 48.75 H (6-20) Glucose 100 (78-110) mg/dL Calculated Osmolality 286.0 (267-292) mOsm/kg Calcium 8.6 L (8.7-10.7) mg/dL Total Bilirubin 0.4 (0.3-1.2) mg/dL AST 17 (8-39) IU/L ALT 29 (9-52) IU/L Alkaline Phosphatase 57 (38-126) IU/L Total Protein 5.9 L (6.1-8.0) g/dL Albumin 3.2 L (3.5-4.8) g/dL Globulin 2.7 (2.50-4.10) g/dL Albumin/Globulin Ratio 1.10 L (1.3-2.0) mg/g - Patient's Progress Pain Medication Addressed: POSITIVE: Not Applicable School/Work Release Addressed: POSITIVE: Not Applicable Re-Examine Time: 19:50 Re-Examine Comment: INR is in an acceptable range for a mechanical heart valve replacement patient. Hemoglobin and hematocrit are up from values obtained at 1513. Patient received 2 units of packed red blood cells. She is essentially asymptomatic on discharge. Status: POSITIVE: Unchanged, Re-Examined - Consult Consult (If Yes, Name of Consulting MD & Time Called): Yes (Dr. Goins, ER, 1950) Consulting MD will see pt:: POSITIVE: Recommended Transfer Counseled: POSITIVE: Patient, Family, RE: Lab Results, RE: DX, RE: Need for F/U Patient Care Time - Estimated PCT Patient Care Time (In Minutes): 55 Vital Signs - Recent Vital Signs Vital Signs: Vital Signs (Last 8 hours) Temp Pulse Resp BP Pulse Ox 02/05/17 17:37 97.4 F 90 16 135/73 94 - VS Reviewed Vital Signs Reviewed: Yes Discharge Clinical Impression: Gastrointestinal hemorrhage, Anemia, Adequate anticoagulation on anticoagulant therapy, History of heart valve replacement with mechanical valve Discharge Disposition: Transferred to Short Term Facility Condition: Fair Date Decision to Transfer to Another Facility: 02/05/17 Time Decision to Transfer to Another Facility: 19:50
[2017-02-06 03:08] VITALS: RESP 18; TEMP 97.6
== END 2017-02-05 22:30 | disposition short-term general hospital (02) ==
LOC: ER 17:35
DX: K92.2 Gastrointestinal hemorrhage, unspecified (principal); D64.9 Anemia, unspecified; Z95.2 Presence of prosthetic heart valve; Z79.01 Long term (current) use of anticoagulants
CPT/HCPCS: 80053; 85025; 85610; 85730; 99283

== ENCOUNTER → 2017-02-19 | Outpatient (CLI) | payer OTHER ==
[2017-02-19 10:12] LABS: BASOPHILS # (AUTO) 0.08 10*3/UL; EOSINOPHILS # (AUTO) 0.25 10*3/UL; HEMATOCRIT 36.3 % (37.0-47.0); HEMOGLOBIN 11.2 g/dL (12.0-16.0); LYMPHOCYTES # (AUTO) 1.53 10*3/uL; MEAN CORPUSCULAR HEMOGLOBIN 27.9 PG (27-31); MEAN CORPUSCULAR HGB CONC 30.9 g/dL (33-37); MEAN CORPUSCULAR VOLUME 90.5 FL (81-99); MEAN PLATELET VOLUME 10.7 FL (7.4-12.2); MONOCYTES % (AUTO) 8.5 % (5-15); NEUTROPHILS # (AUTO) 5.67 10*3/UL; NEUTROPHILS % (AUTO) 68.8 % (50-80); RED BLOOD COUNT 4.01 10^6/uL (4.20-5.40)
[2017-02-19 10:32] LABS: PLATELET MORPHOLOGY COMMENT NORMAL MORPHOLOGY (NORM); RBC MORPHOLOGY COMMENT NORMAL MORPHOLOGY (NORM); WBC MORPHOLOGY COMMENT NORMAL MORPHOLOGY (NORM)
[2017-02-19 10:36] LABS: BLOOD UREA NITROGEN 16 mg/dL (7-22)
== END ==
LOC: MOB LAB 09:41
PROVIDERS: ATTEND Internal Medicine
DX: K92.2 Gastrointestinal hemorrhage, unspecified (principal); R35.8 Other polyuria; I73.9 Peripheral vascular disease, unspecified; I25.10 Atherosclerotic heart disease of native coronary artery without angina pectoris; F17.200 Nicotine dependence, unspecified, uncomplicated
CPT/HCPCS: 36415; 80048; 85025

== ENCOUNTER → 2017-03-11 | Outpatient (CLI) | payer OTHER ==
[2017-03-11 09:41] LABS: HEMATOCRIT 34.9 % (37.0-47.0); HEMOGLOBIN 10.7 g/dL (12.0-16.0); MEAN CORPUSCULAR HEMOGLOBIN 26.4 PG (27-31); MEAN CORPUSCULAR HGB CONC 30.7 g/dL (33-37); MEAN CORPUSCULAR VOLUME 86.2 FL (81-99); MEAN PLATELET VOLUME 10.9 FL (7.4-12.2); RED BLOOD COUNT 4.05 10^6/uL (4.20-5.40)
== END ==
LOC: LAB 09:16
PROVIDERS: ATTEND Internal Medicine
DX: K92.2 Gastrointestinal hemorrhage, unspecified (principal)
CPT/HCPCS: 36415; 85027

== ENCOUNTER → 2017-03-12 | Outpatient (CLI) | payer OTHER | LOC: MMPC 11:11 | PROVIDERS: ATTEND Internal Medicine | DX: K92.2 Gastrointestinal hemorrhage, unspecified (principal); D50.9 Iron deficiency anemia, unspecified; I73.9 Peripheral vascular disease, unspecified; K21.0 Gastro-esophageal reflux disease with esophagitis; R09.89 Other specified symptoms and signs involving the circulatory and respiratory systems; E78.5 Hyperlipidemia, unspecified; I71.4 Abdominal aortic aneurysm, without rupture; E03.9 Hypothyroidism, unspecified; I10 Essential (primary) hypertension; Z95.5 Presence of coronary angioplasty implant and graft; Z95.4 Presence of other heart-valve replacement | CPT/HCPCS: 99213; G0463 ==

== ENCOUNTER → 2017-03-18 | Outpatient (CLI) | payer OTHER ==
[2017-03-18 09:42] LABS: BASOPHILS # (AUTO) 0.08 10*3/UL; BASOPHILS % (AUTO) 1.1 % (0-1); EOSINOPHILS # (AUTO) 0.28 10*3/UL; HEMATOCRIT 35.4 % (37.0-47.0); HEMOGLOBIN 11.1 g/dL (12.0-16.0); LYMPHOCYTES # (AUTO) 1.81 10*3/uL; MEAN CORPUSCULAR HEMOGLOBIN 26.1 PG (27-31); MEAN CORPUSCULAR HGB CONC 31.4 g/dL (33-37); MEAN CORPUSCULAR VOLUME 83.3 FL (81-99); MONOCYTES % (AUTO) 7.2 % (5-15); NEUTROPHILS # (AUTO) 4.31 10*3/UL; NEUTROPHILS % (AUTO) 61.7 % (50-80); RED BLOOD COUNT 4.25 10^6/uL (4.20-5.40)
[2017-03-18 09:45] LABS: PLATELET MORPHOLOGY COMMENT NORMAL MORPHOLOGY (NORM); RBC MORPHOLOGY COMMENT NORMAL MORPHOLOGY (NORM); WBC MORPHOLOGY COMMENT NORMAL MORPHOLOGY (NORM)
== END ==
LOC: LAB 09:27
PROVIDERS: ATTEND Internal Medicine
DX: K92.2 Gastrointestinal hemorrhage, unspecified (principal); D50.9 Iron deficiency anemia, unspecified
CPT/HCPCS: 36415; 85025

== ENCOUNTER → 2017-03-25 | Outpatient (CLI) | payer OTHER ==
[2017-03-25 13:38] LABS: BASOPHILS # (AUTO) 0.05 10*3/UL; BASOPHILS % (AUTO) 0.7 % (0-1); EOSINOPHILS % (AUTO) 2.7 % (0-8); HEMATOCRIT 36.9 % (37.0-47.0); HEMOGLOBIN 11.4 g/dL (12.0-16.0); LYMPHOCYTES # (AUTO) 1.37 10*3/uL; MEAN CORPUSCULAR HEMOGLOBIN 25.3 PG (27-31); MEAN CORPUSCULAR HGB CONC 30.9 g/dL (33-37); MEAN PLATELET VOLUME 11.2 FL (7.4-12.2); MONOCYTES # (AUTO) 0.47 10*3/UL (0.3-0.8); MONOCYTES % (AUTO) 6.4 % (5-15); NEUTROPHILS # (AUTO) 5.19 10*3/UL; NEUTROPHILS % (AUTO) 71.3 % (50-80)
[2017-03-25 13:39] LABS: PLATELET MORPHOLOGY COMMENT NORMAL MORPHOLOGY (NORM); RBC MORPHOLOGY COMMENT NORMAL MORPHOLOGY (NORM); WBC MORPHOLOGY COMMENT NORMAL MORPHOLOGY (NORM)
== END ==
LOC: LAB 13:06
PROVIDERS: ATTEND Surgery
DX: I73.89 Other specified peripheral vascular diseases (principal)
CPT/HCPCS: 36415; 82565; 84520; 85025; 85610; 85730

== ENCOUNTER → 2017-04-14 | Outpatient (CLI) | payer OTHER | LOC: MMPC 11:11 | PROVIDERS: ATTEND Internal Medicine | DX: M81.0 Age-related osteoporosis without current pathological fracture (principal); I73.9 Peripheral vascular disease, unspecified; K21.0 Gastro-esophageal reflux disease with esophagitis | CPT/HCPCS: 99213 ==

== ENCOUNTER → 2017-04-16 | Outpatient (CLI) | payer OTHER ==
[2017-04-16 10:02] LABS: BUN/CREATININE RATIO 21.11 (6-20); CALCIUM 9.5 mg/dL (8.7-10.7); MAGNESIUM 1.6 mg/dL (1.6-2.4)
== END ==
LOC: LAB 09:06
PROVIDERS: ATTEND Internal Medicine
DX: M81.0 Age-related osteoporosis without current pathological fracture (principal); I10 Essential (primary) hypertension
CPT/HCPCS: 36415; 80048; 83735

== ENCOUNTER → 2017-05-08 | Outpatient (CLI) | payer OTHER | LOC: MMPC 10:00 | PROVIDERS: ATTEND Internal Medicine | DX: M81.0 Age-related osteoporosis without current pathological fracture (principal) | CPT/HCPCS: G0463; J0897 ==

== ENCOUNTER 2017-08-16 07:31 | Inpatient (IN) ==
[2017-08-16] MEDS ORDERED: IPRATROPIUM/ALBUTEROL SULFATE 3 ML NEB NEB ONE ×2 (07:45→08:13)
[2017-08-16] MEDS ORDERED: Sodium Chloride 0.9% 1,000 ML PRIMARY IV ONE (08:13)
[2017-08-16] MEDS ORDERED: NORMAL SALINE 10 ML SYRINGE FLUSH IVP PRN ×2 (08:13→15:08)
--- NOTE | 2017-08-16 08:17 | EKG ---
[address] [address] Measurements Intervals [place] Rate: 96 P: 71 OK: 165 QRS: 52 QRSD: 94 T: 71 QT: 368 QTc: 422 Interpretive Statements SINUS RHYTHM WITH FREQUENT VENTRICULAR PREMATURE COMPLEXES ABNORMAL RHYTHM ECG Compared to ECG 11/14/2015 14:48:12 Ventricular premature complex(es) now present T-wave abnormality no longer present Electronically Signed On 08-18-17 08:43:32 MST by Galindo Houston MD [email or web address]
[2017-08-16 08:27] LABS: VENOUS PH 7.46 (7.32-7.42)
--- NOTE | 2017-08-16 08:57 | PDOC ---
Dyspnea HPI - General Chief Complaint: Dyspnea Stated Complaint: dyspnea, wheezing Date Seen by Provider: 08/16/17 Time Seen by Provider: 07:48 Source: POSITIVE: Patient, EMS Exam Limitations: POSITIVE: No limitations Treatment Prior to Arrival: REPORTS: Oxygen, Albuterol Neb Treatment Nurse's Notes Reviewed & Considered: Yes EMS Report Reviewed & Considered: Verbal - History of Present Illness Initial Comments: The patient is a 72-year-old female who is brought to the emergency room by ambulance. She complains of a 2-1/2 day history of progressive dyspnea and cough. She states that she feels "tired and short of breath". Patient has a history of tobacco abuse and chronic bronchitis. She states that she smoked over a pack of cigarettes per day up until 2003 when she had a heart attack followed by coronary artery bypass grafting. She states she still smokes a few cigarettes per week. Patient had coronary artery stenting as well as her coronary artery bypass. She also has a mechanical heart valve replaced in [place] in 2003. She is on Fragmin subcutaneously for anticoagulation. She was on Coumadin up until February of this year. She's had a bilateral carotid artery bypass. She states that the donor site for her CABG was from her arms and since her CABG she's had decreased pulse in the right arm. She's had no known fevers or chills, but she has not taken her temperature. Paramedics report that her oxygen saturations on their arrival was 87%. They administered supplemental oxygen and gave a beta agonist nebulizer treatment en route. Body Location Affected: REPORTS: Chest Timing: REPORTS: Gradual, Getting Worse Duration: >24 hours (Patient reports symptomatic for 2-1/2 days) Severity: Moderate Quality: REPORTS: Other (Patient denies any chest or other pain) Initiating Event: DENIES: Upper Respiratory Illness, Out of Medications, Sports , Exercise, Aspiration, Choking, Allergy, Exposure - Smoke, Exposure - Mold, Exposure - Other Allergen Context: REPORTS: Activity (Symptoms worsen by exertion) Exacerbated By: REPORTS: Exertion Associated Symptoms: DENIES: Fever, Chills, Sweating, Chest Pain, Chest Discomfort, Left Chest, Right Chest, Central Chest, Chest Heaviness, Chest Tightness, Painful Breathing, Radiation to Back, Radiation to Jaw, Radiation to Arm, Bloody Cough, Productive Cough, Heart Racing, Leg Pain, Calf Pain, Ankle Swelling, Leg Swelling, Dizziness, Light-Headedness, Anxiety, Tingling - Hands, Tingling - Face, Muscle Spasms - Hands, Muscle Spasms - Feet Similar Symptoms Previously: No Recently seen/treated/hospitalized: No Any Prior Injuries Related to Current Complaint?: No - Patient Home Medications Home Medications: Home Medications Dalteparin Sodium,Porcine [Fragmin] 0.72 ml SUBCUT QD #30 box 03/17/17 Hydrocodone/Acetaminophen [Hydrocodon-Acetaminoph 7.5-325] 1 tab PO Q6H PRN #30 tab 04/14/17 amlodipine 5 mg tablet 5 mg PO QDAY #90 tab 08/05/17 aspirin 81 mg tablet,delayed release 81 mg PO QDAY tab 08/05/17 calcium carbonate 500 mg(1,250 mg)-vitamin D3 400 unit chewable tablet 1 tab PO BID tab 08/05/17 cholecalciferol (vitamin D3) 2,000 unit capsule 2,000 unit PO QDAY cap denosumab 60 mg/mL subcutaneous syringe 60 mg SUBCUT [id number] #1 ml 08/05/17 dexlansoprazole 60 mg capsule,biphase delayed release 60 mg PO BID #180 cap levothyroxine 50 mcg tablet 50 mcg PO QAM #90 tab 08/05/17 losartan 25 mg tablet 25 mg PO QDAY #90 tab 08/05/17 metoprolol succinate ER 50 mg tablet,extended release 24 hr 50 mg PO QDAY #90 tab 08/05/17 mirtazapine 15 mg tablet 7.5 mg PO QHS #45 tab 08/05/17 oxybutynin chloride ER 5 mg tablet,extended release 24 hr 5 mg PO QDAY #90 tab 08/05/17 potassium chloride ER 10 mEq capsule,extended release 10 meq PO QDAY 08/05/17 pravastatin 80 mg tablet 80 mg PO QDAY #90 tab 08/05/17 venlafaxine ER 150 mg capsule,extended release 24 hr 150 mg PO QDAY #90 cap - Patient Allergies Allergies/Adverse Reactions: Allergies 3 Allergy/AdvReac Type Severity Reaction Status Date / Time kiwi Allergy Intermediate SWELLING Verified 08/16/17 07:55 No Known Drug Allergies Allergy none Verified 08/16/17 07:55 avacado Allergy Intermediate VOMITING Uncoded 08/16/17 07:55 cucumber Allergy Intermediate VOMITING Uncoded 08/16/17 07:55 Past Medical History - heen HEENT History: Hard of Hearing Cardiovascular History: Hypertension, Previous OR, Hyperlipidemia Additional Cardiovasular History: stent Respiratory History: Denies History Gastrointestinal History: GERD, GI Bleed Genitourinary History: Denies History Endocrine History: Hypothyroidism Musculoskeletal History: Osteoporosis, Back Pain Prosthesis or Implant: No Neurological History: Denies History Blood Disorders: Anemia Psychiatric History: Depression Female Reproductive History: Denies History Obstetrical History: Denies History Cancer History: Denies History In Past Year Been Physically Harmed or Verbally Threatened: No History of MDRO: No Tobacco Use: Current Some Day Smoker Alcohol Use: None In the Past 12 Months, Have Used or Abuse Any Substance: None Previous Surgical History: Yes Type / Date of Surgery: appendectomy. tubular . hysterectomy. R TKA. back surgeries. open heart Significant Family History: Cancer Past Medical History Reviewed: Reviewed - No Changes ROS - Limitations ROS Limitations: No Limitations Constitution: REPORTS: Denies Symptoms Cardiovascular: REPORTS: Denies Cardiac Symptoms Respiratory: REPORTS: Cough Productive (Cough productive of mucoid sputum), Shortness Of Breath, Wheezing Neurological: REPORTS: Denies Neuro Symptoms Gastrointestinal: REPORTS: Denies GI Symptoms Endocrine: REPORTS: Denies Symptoms Musculoskeletal: REPORTS: Denies MS Symptoms Genitourinary: REPORTS: Denies Symptoms Eyes: REPORTS: Denies Symptoms ENT: REPORTS: Denies Symptoms Skin: REPORTS: Denies Skin Symptoms Lympathic: REPORTS: Denies Lympathic Symptoms Immunologic: POSITIVE: Denies Symptoms Psychiatric: POSITIVE: Denies Psych Symptoms Dyspnea Physical Exam - General Appearance General Appearance: REPORTS: Alert, Cooperative, No Acute Distress, No Evidence of Trauma - HEENT HEENT: POSITIVE: Head Inspection Nml, Eyes Inspection Nml, Ears Inspection Nml, Nose Inspection Nml, Oral/Dental Inspect. Nml, Pharynx Inspect. Nml, PERRL, EOMI - Neck Neck: REPORTS: Normal Inspection, No Carotid Bruit - Respiratory Respiratory: REPORTS: No Pleuritic Chest Pain, Speaks Full Sentences, No Pain on Inspiration, Wheezes (Diffuse wheezing), Rhonchi (Diffuse rhonchi). DENIES: Breath Sounds Normal, Respiratory Distress (Mild), Fatigue, Prolonged Expirations, Accessory Muscle Use, Retractions, Splinting, Dull on Percussion, Decreased Air Movement, Chest Wall Tenderness, Speaks Broken Sentences, Stridor , Respiratory Failure - Cardiovascular Cardiovascular: REPORTS: Regular Rate and Rhythm, Heart Sounds Normal, Equal Pulses, Strong Pulses, No Murmur, No Gallop, No Friction Rub, No JVD Peripheral Pulses: Radial (R): 0, Radial (L): 2+ Murmur: Systolic: Grade 2 (2/6 systolic murmur over the precordium) - Abdomen Abdomen: Soft: (All Quadrants), Normal Bowel Sounds: (All Quadrants), Denies Tenderness: (All Quadrants), No Splenomegaly: (All Quadrants), No Hepatomegaly: (All Quadrants), No Guarding: (All Quadrants), No Rebound: (All Quadrants), No Palpable Pulse: (All Quadrants), No Palpabale Mass: (All Quadrants), No Distention: (All Quadrants), No Rigidity: (All Quadrants) - Skin Skin: REPORTS: Intact, Normal For Race, Warm, Dry, No Rash - Extremities Extremity: Non-Tender: (All Extremities), Normal ROM: (All Extremities), Normal Inspection: (All Extremities) - Neurological / Psychological Neurological: POSITIVE: Affect Apporpriate, 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 NEGATIVE: Normal QRS (Frequent unifocal PVCs) - Patient's Progress Pain Medication Addressed: POSITIVE: Not Applicable School/Work Release Addressed: POSITIVE: Not Applicable Re-Examine Time: 09:00 Re-Examine Comment: Patient given a don't them nebulizer treatment in the emergency room with marked reduction in her cough. Still has some wheezing and rhonchi. On oxygen supplementation patient is maintaining her saturation at 96% . Chest x-ray, CMP, CBC, blood cultures, d-dimer and troponin all ordered and are pending at the time of this dictation. Care transferred to Dr. Dong, who is coming on duty at 0900. Status: POSITIVE: Improved, Re-Examined Air Movement: POSITIVE: Fair - Consult Consult (If Yes, Name of Consulting MD & Time Called): Yes (care transferred to at 0900 ) Counseled: POSITIVE: Patient Patient Care Time - Estimated PCT Patient Care Time (In Minutes): 45 Vital Signs - Recent Vital Signs Vital Signs: Vital Signs (Last 8 hours) Temp Pulse Resp BP BP Pulse Ox 08/16/17 07:31 96.5 F L 78 32 H 193/86 98/65 96 - VS Reviewed Vital Signs Reviewed: Yes Discharge Clinical Impression: Cough, Dyspnea Discharge Disposition: Other (Care transferred to , emergency room physician coming on duty at 0900.) Condition: Stable Follow Up With: WINNIE WOODY [Primary Care Provider] -
[2017-08-16 08:58] LABS: BASOPHILS # (AUTO) 0.04 10*3/UL; BASOPHILS % (AUTO) 0.4 % (0-1); EOSINOPHILS # (AUTO) 0.07 10*3/UL; EOSINOPHILS % (AUTO) 0.7 % (0-8); Hematocrit [HCT] 36.1 % (37.0-47.0); Hemoglobin [HGB] 11.1 g/dL (12.0-16.0); LYMPHOCYTES # (AUTO) 1.45 10*3/uL; MEAN CORPUSCULAR HEMOGLOBIN 23.7 PG (27-31); MEAN CORPUSCULAR HGB CONC 30.7 g/dL (33-37); MEAN PLATELET VOLUME 11.8 FL (7.4-12.2); MONOCYTES % (AUTO) 7.2 % (5-15); NEUTROPHILS # (AUTO) 7.41 10*3/UL; NEUTROPHILS % (AUTO) 76.6 % (50-80); RED BLOOD COUNT 4.69 10^6/uL (4.20-5.40)
[2017-08-16] MEDS ORDERED: Prometh/Codeine Liquid 10/6.25 MG/5 ML ORAL.SYRIN PO ONE ×3 (08:58→09:19)
[2017-08-16 09:13] LABS: PLATELET MORPHOLOGY COMMENT NORMAL MORPHOLOGY (NORM); RBC MORPHOLOGY COMMENT SEE COMMENTS (NORM); WBC MORPHOLOGY COMMENT NORMAL MORPHOLOGY (NORM)
[2017-08-16 09:15] LABS: BLOOD UREA NITROGEN 20 mg/dL (7-22); MAGNESIUM 1.6 mg/dL (1.6-2.4); SERUM ALBUMIN 4.1 g/dL (3.5-4.8)
--- NOTE | 2017-08-16 09:19 | PDOC ---
Transfer of Care - Care Accepted Time Care Transferred: 08:50 Report from Transferring Physician Received: Yes MDM / ED Course: Labs were ordered, radiographs ordered, and patient received DuoNeb nebulizer treatment. She had improved air movement and subsequently developed increasing cough. She was administered 2 teaspoons of Phenergan with codeine to address her cough. Home Medications: Home Medications Dalteparin Sodium,Porcine [Fragmin] 0.72 ml SUBCUT QD #30 box 03/17/17 Hydrocodone/Acetaminophen [Hydrocodon-Acetaminoph 7.5-325] 1 tab PO Q6H PRN #30 tab 04/14/17 amlodipine 5 mg tablet 5 mg PO QDAY #90 tab 08/05/17 aspirin 81 mg tablet,delayed release 81 mg PO QDAY tab 08/05/17 calcium carbonate 500 mg(1,250 mg)-vitamin D3 400 unit chewable tablet 1 tab PO BID tab 08/05/17 cholecalciferol (vitamin D3) 2,000 unit capsule 2,000 unit PO QDAY cap denosumab 60 mg/mL subcutaneous syringe 60 mg SUBCUT [id number] #1 ml 08/05/17 dexlansoprazole 60 mg capsule,biphase delayed release 60 mg PO BID #180 cap levothyroxine 50 mcg tablet 50 mcg PO QAM #90 tab 08/05/17 losartan 25 mg tablet 25 mg PO QDAY #90 tab 08/05/17 metoprolol succinate ER 50 mg tablet,extended release 24 hr 50 mg PO QDAY #90 tab 08/05/17 mirtazapine 15 mg tablet 7.5 mg PO QHS #45 tab 08/05/17 oxybutynin chloride ER 5 mg tablet,extended release 24 hr 5 mg PO QDAY #90 tab 08/05/17 potassium chloride ER 10 mEq capsule,extended release 10 meq PO QDAY 08/05/17 pravastatin 80 mg tablet 80 mg PO QDAY #90 tab 08/05/17 venlafaxine ER 150 mg capsule,extended release 24 hr 150 mg PO QDAY #90 cap Allergies/Adverse Reactions: Allergies kiwi Allergy (Intermediate, Verified 08/16/17 07:55) SWELLING numbness around mouth No Known Drug Allergies Allergy (Verified 08/16/17 07:55) none avacado Allergy (Intermediate, Uncoded 08/16/17 07:55) VOMITING numbness and swelling around mouth cucumber Allergy (Intermediate, Uncoded 08/16/17 07:55) VOMITING numbness and swelling around mouth Vital Signs Reviewed: Yes Nurse's Notes Reviewed & Considered: Yes - Pending Patient Care Items Pending Patient Care Items: POSITIVE: Labs, X-ray Results - Expected Patient Outcome Tentative Impression of Patient: Viral upper respiratory infection. Expected Disposition: POSITIVE: Home - Re-Evaluation of Patient Re-Examine Time:: 13:33 Disposition of Patient: POSITIVE: Admitted Counseled: POSITIVE: Patient, Family, RE: Lab Results, RE: Radiology Results, RE : DX Pending Test Results Documented: Yes Clinical Impression Documented: Yes (pneumonia exacerbating congestive heart failure.) - Results Reviewed Lab Results Reviewed by Me: Yes Lab Results: Laboratory Results 08/16/17 08/16/17 08/16/17 Range/Units 08:19 08:45 08:45 WBC 9.68 (4.8-10.8) 10^3/uL RBC 4.69 (4.20-5.40) 10^6/uL Hgb 11.1 L (12.0-16.0) g/dL Hct 36.1 L (37.0-47.0) % MCV 77.0 L (81-99) FL MCH 23.7 L (27-31) PG MCHC 30.7 L (33-37) g/dL RDW Std Deviation 70.5 H (39-50) fL RDW Coeff of Blanca 26.4 H (11.5-14.5) % Plt Count 293 (140-350) 10*3/uL MPV 11.8 (7.4-12.2) FL Immature Gran % (Auto) 0.1 (0-5) % Neut % (Auto) 76.6 (50-80) % Lymph % (Auto) 15.0 (10-50) % [place] % (Auto) 7.2 (5-15) % Eos % (Auto) 0.7 (0-8) % Baso % (Auto) 0.4 (0-1) % Immature Gran # (Auto) 0.01 10*3/UL Neut # (Auto) 7.41 10*3/UL Lymph # (Auto) 1.45 10*3/uL [place] # (Auto) 0.70 (0.3-0.8) 10*3/UL Eos # (Auto) 0.07 10*3/UL Baso # (Auto) 0.04 10*3/UL WBC Morphology Comment Normal morphology (NORM) Plt Morphology Comment Normal morphology (NORM) RBC Morph Comment See comments (NORM) PT 10.7 (9.7-11.4) secs INR 1.01 (0.00-5.90) N/A D-Dimer 0.38 (0.00-0.59) mg/L VBG pH 7.46 H (7.32-7.42) VBG pCO2 31 L (45-55) mmHg VBG HCO3 23 (22-26) mmol/L VBG Base Excess -1 (-2-2) MMOL/L Sodium (135-145) meq/L Potassium (3.8-5.2) meq/L Chloride (98-112) meq/L Carbon Dioxide (23-33) meq/L Anion Gap (5-20) BUN (7-22) mg/dL Creatinine (0.50-1.20) mg/dL BUN/Creatinine Ratio (6-20) Glucose (78-110) mg/dL Calculated Osmolality (267-292) mOsm/kg Calcium (8.7-10.7) mg/dL Magnesium (1.6-2.4) mg/dL Total Bilirubin (0.3-1.2) mg/dL AST (8-39) IU/L ALT (9-52) IU/L Alkaline Phosphatase (38-126) IU/L Troponin I (< 0.040) ng/mL C-Reactive Protein (0.0-0.9) mg/dL NT-Pro-B Natriuret Pep (0-125) PG/ML Total Protein (6.1-8.0) g/dL Albumin (3.5-4.8) g/dL Globulin (2.50-4.10) g/dL Albumin/Globulin Ratio (1.3-2.0) mg/g 08/16/17 08/16/17 Range/Units 08:45 08:45 WBC (4.8-10.8) 10^3/uL RBC (4.20-5.40) 10^6/uL Hgb (12.0-16.0) g/dL Hct (37.0-47.0) % MCV (81-99) FL MCH (27-31) PG MCHC (33-37) g/dL RDW Std Deviation (39-50) fL RDW Coeff of Blanca (11.5-14.5) % Plt Count (140-350) 10*3/uL MPV (7.4-12.2) FL Immature Gran % (Auto) (0-5) % Neut % (Auto) (50-80) % Lymph % (Auto) (10-50) % [place] % (Auto) (5-15) % Eos % (Auto) (0-8) % Baso % (Auto) (0-1) % Immature Gran # (Auto) 10*3/UL Neut # (Auto) 10*3/UL Lymph # (Auto) 10*3/uL [place] # (Auto) (0.3-0.8) 10*3/UL Eos # (Auto) 10*3/UL Baso # (Auto) 10*3/UL WBC Morphology Comment (NORM) Plt Morphology Comment (NORM) RBC Morph Comment (NORM) PT (9.7-11.4) secs INR (0.00-5.90) N/A D-Dimer (0.00-0.59) mg/L VBG pH (7.32-7.42) VBG pCO2 (45-55) mmHg VBG HCO3 (22-26) mmol/L VBG Base Excess (-2-2) MMOL/L Sodium 139 (135-145) meq/L Potassium 4.2 (3.8-5.2) meq/L Chloride 108 (98-112) meq/L Carbon Dioxide 19 L (23-33) meq/L Anion Gap 12 (5-20) BUN 20 (7-22) mg/dL Creatinine 1.0 (0.50-1.20) mg/dL BUN/Creatinine Ratio 20.00 (6-20) Glucose 134 H (78-110) mg/dL Calculated Osmolality 292.0 (267-292) mOsm/kg Calcium 9.2 (8.7-10.7) mg/dL Magnesium 1.6 (1.6-2.4) mg/dL Total Bilirubin 0.3 (0.3-1.2) mg/dL AST 28 (8-39) IU/L ALT 36 (9-52) IU/L Alkaline Phosphatase 92 (38-126) IU/L Troponin I 0.020 (< 0.040) ng/mL C-Reactive Protein 1.7 H (0.0-0.9) mg/dL NT-Pro-B Natriuret Pep 8470 H (0-125) PG/ML Total Protein 7.3 (6.1-8.0) g/dL Albumin 4.1 (3.5-4.8) g/dL Globulin 3.2 (2.50-4.10) g/dL Albumin/Globulin Ratio 1.20 L (1.3-2.0) mg/g EKG Interpreted/Reviewed By Me:: Yes EKG Interpretation:: POSITIVE: Normal Sinus Rhythm - Consult Consult (If Yes, Name of Consulting MD & Time Called): Yes (Dr. Lutz: 1330 hrs) Patient Care Time - Estimated PCT Patient Care Time (In Minutes): 45 Vital Signs - Recent Vital Signs Vital Signs: Vital Signs (Last 8 hours) Temp Pulse Resp BP BP Pulse Ox 08/16/17 10:42 97.0 F 105 H 26 H 164/83 96 08/16/17 07:31 96.5 F L 78 32 H 193/86 98/65 96 - VS Reviewed Vital Signs Reviewed: Yes Discharge Clinical Impression: Cough, Dyspnea, Pneumonia Discharge Disposition: Admit to Inpatient Condition: Stable Follow Up With: WINNIE WOODY [Primary Care Provider] - Date Decision to Admit to Inpatient: 08/16/17 Time Decision to Admit to Inpatient: 13:35
[2017-08-16] MEDS ORDERED: BUMETANIDE 1 MG TABLET PO ONE (10:04)
[2017-08-16] MEDS ORDERED: LISINOPRIL 10 MG TABLET PO ONE (10:33)
--- NOTE | 2017-08-16 10:40 | DI ---
Chest PA and lateral views INDICATION: Pain COMPARISON: Chest x-ray dated 10/11/15 FINDINGS: PA and lateral views of the chest are obtained. Status post median sternotomy. Status post valve replacement. Cardiomegaly. Atherosclerotic vascular disease. The cardiomediastinal silhouette is within normal limits. Increasing retrocardiac opacity correlation can be obtained with CT. Lungs are otherwise clear. No pleural effusions. Status post stable kyphoplasty of the mid thoracic spine. Abdominal aortic stent partially imaged. IMPRESSION: 1. Increasing retrocardiac opacity correlation can be obtained with CT. 2. Stable postoperative changes and cardiomegaly as outlined above.
--- NOTE | 2017-08-16 12:43 | DI ---
INDICATION: Shortness of breath cough TECHNIQUE: Multiple, contiguous 5mm axial cuts of the chest are obtained following the administration of IV contrast. High resolution axial images as well as sagittal and coronal reformatted images are available. COMPARISON: CT dated 04/03/09 FINDINGS: 14 mm right thyroid lobe nodule. Status post median sternotomy. Atherosclerotic vascular disease including involvement of the coronary arteries. Enlarged heart size. The aorta is within normal limits, no aneurysm or dissection. No pleural effusion. Scattered patchy opacities are seen within the right upper lobe and right middle lobe may be infectious in etiology. Slight increase in size of previously identified lateral left upper lobe subpleural nodule now measuring 17 mm on prior exam this measured 11 mm. Large hiatal hernia. Gallstones. Status post kyphoplasty at T7-T9. The osseous structures are unremarkable. IMPRESSION: 1. Scattered patchy opacities are seen within the right upper lobe and right middle lobe may be infectious in etiology. Slight increase in size of previously identified lateral left upper lobe subpleural nodule now measuring 17 mm on prior exam this measured 11 mm. 2. Enlarged heart size. 3. 14 mm right thyroid lobe nodule, correlation can be obtained with ultrasound.
[2017-08-16] MEDS ORDERED: cefTRIAXone Inj 2 GM in Sodium Chloride 0.9% 100 ML IV ONE (13:27)
[2017-08-16] MEDS ORDERED: FUROSEMIDE 10 MG/1 ML - 4 ML IVP ONE ×2 (15:08→21:00)
[2017-08-16] MEDS ORDERED: HYDROcodone-APAP 7.5 MG-325 MG TABLET PO PRN (15:08)
[2017-08-16] MEDS ORDERED: ALBUTEROL SULFATE 2.5 MG/3 ML NEB PRN (15:08)
[2017-08-16] MEDS ORDERED: cefTRIAXone Inj 2 GM in Sodium Chloride 0.9% 100 ML IV SCH (15:08)
[2017-08-16] MEDS ORDERED: LIDOCAINE W/ SODIUM BICARB 0.5 ML SYR SUBD PRN (15:08)
[2017-08-16] MEDS: IPRATROPIUM/ALBUTEROL SULFATE 3 ML NEB NEB SCH ×2 (15:49→19:01)
[2017-08-16] MEDS ORDERED: OMEPRAZOLE 40 MG CAPSULE PO SCH (16:00)
[2017-08-16] MEDS ORDERED: LIDOCAINE HCL 2 % 10 ML JELLY URO-JECT TOPICAL PRN (17:36)
[2017-08-16] MEDS ORDERED: Magnesium Sulfate 2gm (Premix) 2 GM/50 ML BAG IV ONE (17:38)
--- NOTE | 2017-08-16 17:47 | PDOC ---
HPI - History of Present Illness Date and Time of Service: 08/16/2017, 1742 Chief Complaint: Cough 2 days History of Present Illness: This very pleasant 72-year-old female with a significant history of peripheral arterial disease, mechanical aortic valve, hypertension, amongst other issues, who comes in stating that she's had a cough present for the last 2 days. She felt so short of breath with her cough today, albeit not productive cough, that she called the ambulance and came in for evaluation. She was found to have a retrocardiac density consistent with a pneumonia on CT scan and chest x-ray. She was given Rocephin and Zithromax in the emergency room. The patient had another pneumonia a few years ago. She states that she has had her Pneumovax vaccines and had the flu shot so she's not sure what she continues to come down with pneumonia. She states to me that last Friday and , she had some vomiting that has all now resolved. No diarrhea, no abdominal pain. She denies any fevers. She is normally not on oxygen but has been requiring oxygen to maintain her saturations above 91%. In terms of her mechanical valve, she was going to get this managed with Coumadin with Dr. Jones but she has not seen him yet in follow-up, so she see him later this month. She was just in the hospital here for anemia that was quite severe but ended up going home the next day after blood transfusions. She tells me that her recent iron studies were found to be normal. There were no other exacerbating factors, and she's not had any sick contacts. Other than trying some Mucinex D, nothing else seemed to work. She was wheezing upon arrival to the floor here, and I gave her a dose of Lasix as her BNP was also elevated. Past Medical History Medical History: 1. GI bleed probably secondary to AV malformations, status post push enteroscopy results from [facility] which was negative. 2. Hypertension. 3. Hypothyroidism. 4. Coronary artery disease status post CABG. 5. Aortic valve, mechanical. 6. Long-term anticoagulation due to mechanical valve. 7. Severe peripheral arterial disease. 8. Vitamin D deficiency. 9. Osteoporosis. 10. GERD with history of esophagitis. 11. Depression, well controlled. 12. Hypercholesterolemia. 13. History of stroke , presumed related to cardioembolic source when off anticoagulation waiting for a left carotid stent Surgical History: 1. Multiple colonoscopies and EGDs. 2. Push enteroscopy done in [place]. 3. Angioplasty of arteries and veins in lower extremities. 4. CABG in 2003. 5. Mechanical aortic valve in 2003. 6. Right arm surgeries. 7. Endovascular abdominal aortic aneurysm repair. 8. Right carotid endarterectomy. 9. Left carotid stent placement. 10. Total knee replacement. 11. Appendectomy. 12. Hysterectomy and bilateral salpingo- oophorectomy. 13. Tubal ligation. 14. Iliac aneurysm repair. 15. Cataract surgery Pertinent Family History: She states she does not know her mother's history she did not really live with her. Her father of coronary artery disease complications and dementia. Past Social History: Quit smoking years ago. Lives alone, , has children that are described as healthy. Does not drink alcohol. Tobacco Use: Current Some Day Smoker Do you dip or chew tobacco: No In the Past 12 Months, Have Used or Abuse Any of the Following Substance: None Alcohol Use: None Medication / Allergies Home Medications: Home Medications Medication Instructions Recorded Confirmed Type Dalteparin Sodium,Porcine [Fragmin] 0.72 ml SUBCUT QD #30 box 03/17/17 08/16/17 Rx Hydrocodone/Acetaminophen 1 tab PO Q6H PRN #30 tab 04/14/17 08/16/17 History [Hydrocodon-Acetaminoph 7.5-325] amlodipine 5 mg tablet 5 mg PO QDAY #90 tab 08/05/17 08/16/17 Rx aspirin 81 mg tablet,delayed 81 mg PO QDAY tab 08/05/17 08/16/17 History release calcium carbonate 500 mg(1,250 1 tab PO BID tab 08/05/17 08/16/17 History mg)-vitamin D3 400 unit chewable tablet cholecalciferol (vitamin D3) 2,000 2,000 unit PO QDAY cap 08/05/17 08/16/17 History unit capsule denosumab 60 mg/mL subcutaneous 60 mg SUBCUT [id number] #1 ml 08/05/17 08/16/17 History syringe dexlansoprazole 60 mg 60 mg PO BID #180 cap 08/05/17 08/16/17 Rx capsule,biphase delayed release levothyroxine 50 mcg tablet 50 mcg PO QAM #90 tab 08/05/17 08/16/17 Rx losartan 25 mg tablet 25 mg PO QDAY #90 tab 08/05/17 08/16/17 Rx metoprolol succinate ER 50 mg 50 mg PO QDAY #90 tab 08/05/17 08/16/17 Rx tablet,extended release 24 hr mirtazapine 15 mg tablet 7.5 mg PO QHS #45 tab 08/05/17 08/16/17 Rx oxybutynin chloride ER 5 mg 5 mg PO QDAY #90 tab 08/05/17 08/16/17 Rx tablet,extended release 24 hr potassium chloride ER 10 mEq 10 meq PO QDAY 08/05/17 08/16/17 History capsule,extended release pravastatin 80 mg tablet 80 mg PO QDAY #90 tab 08/05/17 08/16/17 Rx venlafaxine ER 150 mg 150 mg PO QDAY #90 cap 08/05/17 08/16/17 Rx capsule,extended release 24 hr Allergies/Adverse Reactions: Allergies 3 Allergy/AdvReac Type Severity Reaction Status Date / Time kiwi Allergy Intermediate SWELLING Verified 08/16/17 15:12 No Known Drug Allergies Allergy none Verified 08/16/17 15:12 avacado Allergy Intermediate VOMITING Uncoded 08/16/17 15:12 cucumber Allergy Intermediate VOMITING Uncoded 08/16/17 15:12 Review of Systems - Respiratory Respiratory: REPORTS: See HPI - Cardiovascular Cardiovascular: REPORTS: Negative System Review - Gastrointestinal Gastrointestinal / Abdominal: REPORTS: Negative System Review - Genitourinary Genitourinary: REPORTS: Incontinence (Stress incontinence or retention coughs.) Exam - Vitals Vital Signs: Vital Signs Temperature 99.0 F Temperature Source Oral Pulse Rate [Pulse Oximeter 108 Right] Pulse Rate 118 Respiratory Rate 24 Blood Pressure [Left Arm] 179/84 Pulse Ox 94 Oxygen Flow Rate 5 Oxygen Delivery Method Nasal Cannula Height 5 ft 5 in Weight 175 lb 12.8 oz - General General Appearance: No Acute Distress, Cooperative Additional General Exam Details: frequent, dry, hacking cough - Head Head Exam: Normal Inspection, Normocephalic, Atraumatic - Eye Eye Exam: POSITIVE: No Scleral Icterus - Neck Neck Exam: Normal Inspection, No Tenderness, No Lymphadenopathy - Respiratory Respiratory Exam: POSITIVE: Breathing Non Labored, Decreased Breath Sounds, Stridor Additional Respiratory Exam Details: Expiratory wheezing that I can hear from bedside. - Cardiovascular Cardiovascular Exam: POSITIVE: No Murmur, No Gallops, No Rubs, Tachycardia, Clicks - GI/Abdominal GI/Abdominal Exam: POSITIVE: Normal Bowel Sounds, Non Tender, Non Distended, Soft - Rectal Rectal Exam: POSITIVE: Deferred - External Exam: POSITIVE: Deferred Exam: POSITIVE: Deferred - Extremities Extremities Exam: POSITIVE: No Edema Present, No Cyanosis Present, Clubbing Present (In the digits) - Neurological Neurological Exam: POSITIVE: Alert, Oriented x 3, Normal Gait, No Facial Droop, Speech Intact / Clear, Moves All Extremities Equally - Psychiatric Psychiatric Exam: POSITIVE: Normal Affect, Normal Mood Results - Labs CBC and BMP: 08/16/17 08:45 08/16/17 08:45 Additional Lab Results: Laboratory Results 08/16/17 08/16/17 08/16/17 Range/Units 08:19 08:45 08:45 WBC 9.68 (4.8-10.8) 10^3/uL RBC 4.69 (4.20-5.40) 10^6/uL Hgb 11.1 L (12.0-16.0) g/dL Hct 36.1 L (37.0-47.0) % MCV 77.0 L (81-99) FL MCH 23.7 L (27-31) PG MCHC 30.7 L (33-37) g/dL RDW Std Deviation 70.5 H (39-50) fL RDW Coeff of Blanca 26.4 H (11.5-14.5) % Plt Count 293 (140-350) 10*3/uL MPV 11.8 (7.4-12.2) FL Immature Gran % (Auto) 0.1 (0-5) % Neut % (Auto) 76.6 (50-80) % Lymph % (Auto) 15.0 (10-50) % Wilkes % (Auto) 7.2 (5-15) % Eos % (Auto) 0.7 (0-8) % Baso % (Auto) 0.4 (0-1) % Immature Gran # (Auto) 0.01 10*3/UL Neut # (Auto) 7.41 10*3/UL Lymph # (Auto) 1.45 10*3/uL Wilkes # (Auto) 0.70 (0.3-0.8) 10*3/UL Eos # (Auto) 0.07 10*3/UL Baso # (Auto) 0.04 10*3/UL WBC Morphology Comment Normal morphology (NORM) Plt Morphology Comment Normal morphology (NORM) RBC Morph Comment See comments (NORM) PT 10.7 (9.7-11.4) secs INR 1.01 (0.00-5.90) N/A D-Dimer 0.38 (0.00-0.59) mg/L VBG pH 7.46 H (7.32-7.42) VBG pCO2 31 L (45-55) mmHg VBG HCO3 23 (22-26) mmol/L VBG Base Excess -1 (-2-2) MMOL/L Sodium (135-145) meq/L Potassium (3.8-5.2) meq/L Chloride (98-112) meq/L Carbon Dioxide (23-33) meq/L Anion Gap (5-20) BUN (7-22) mg/dL Creatinine (0.50-1.20) mg/dL BUN/Creatinine Ratio (6-20) Glucose (78-110) mg/dL Calculated Osmolality (267-292) mOsm/kg Calcium (8.7-10.7) mg/dL Magnesium (1.6-2.4) mg/dL Total Bilirubin (0.3-1.2) mg/dL AST (8-39) IU/L ALT (9-52) IU/L Alkaline Phosphatase (38-126) IU/L Troponin I (< 0.040) ng/mL C-Reactive Protein (0.0-0.9) mg/dL NT-Pro-B Natriuret Pep (0-125) PG/ML Total Protein (6.1-8.0) g/dL Albumin (3.5-4.8) g/dL Globulin (2.50-4.10) g/dL Albumin/Globulin Ratio (1.3-2.0) mg/g 08/16/17 08/16/17 Range/Units 08:45 08:45 WBC (4.8-10.8) 10^3/uL RBC (4.20-5.40) 10^6/uL Hgb (12.0-16.0) g/dL Hct (37.0-47.0) % MCV (81-99) FL MCH (27-31) PG MCHC (33-37) g/dL RDW Std Deviation (39-50) fL RDW Coeff of Blanca (11.5-14.5) % Plt Count (140-350) 10*3/uL MPV (7.4-12.2) FL Immature Gran % (Auto) (0-5) % Neut % (Auto) (50-80) % Lymph % (Auto) (10-50) % Wilkes % (Auto) (5-15) % Eos % (Auto) (0-8) % Baso % (Auto) (0-1) % Immature Gran # (Auto) 10*3/UL Neut # (Auto) 10*3/UL Lymph # (Auto) 10*3/uL Wilkes # (Auto) (0.3-0.8) 10*3/UL Eos # (Auto) 10*3/UL Baso # (Auto) 10*3/UL WBC Morphology Comment (NORM) Plt Morphology Comment (NORM) RBC Morph Comment (NORM) PT (9.7-11.4) secs INR (0.00-5.90) N/A D-Dimer (0.00-0.59) mg/L VBG pH (7.32-7.42) VBG pCO2 (45-55) mmHg VBG HCO3 (22-26) mmol/L VBG Base Excess (-2-2) MMOL/L Sodium 139 (135-145) meq/L Potassium 4.2 (3.8-5.2) meq/L Chloride 108 (98-112) meq/L Carbon Dioxide 19 L (23-33) meq/L Anion Gap 12 (5-20) BUN 20 (7-22) mg/dL Creatinine 1.0 (0.50-1.20) mg/dL BUN/Creatinine Ratio 20.00 (6-20) Glucose 134 H (78-110) mg/dL Calculated Osmolality 292.0 (267-292) mOsm/kg Calcium 9.2 (8.7-10.7) mg/dL Magnesium 1.6 (1.6-2.4) mg/dL Total Bilirubin 0.3 (0.3-1.2) mg/dL AST 28 (8-39) IU/L ALT 36 (9-52) IU/L Alkaline Phosphatase 92 (38-126) IU/L Troponin I 0.020 (< 0.040) ng/mL C-Reactive Protein 1.7 H (0.0-0.9) mg/dL NT-Pro-B Natriuret Pep 8470 H (0-125) PG/ML Total Protein 7.3 (6.1-8.0) g/dL Albumin 4.1 (3.5-4.8) g/dL Globulin 3.2 (2.50-4.10) g/dL Albumin/Globulin Ratio 1.20 L (1.3-2.0) mg/g - EKG Data -: EKG Interpreted by Me Rate: Normal EKG Shows Normal: Sinus Rhythm - EKG Data EKG Interpretation: Other (Frequent PVCs noted) - Imaging Status: Image Reviewed by Me (Chest x-ray, on my view, particularly the lateral view, shows a retrocardiac density. CT scan of the chest was read as having a retrocardiac density in the right thyroid nodule.) Assessment and Plan - Patient Problems (1) Aspiration pneumonia due to gastric secretions Current Visit: Yes Status: Acute Code(s): J69.0 - Pneumonitis due to inhalation of food and vomit Qualifiers: Laterality: right Lung location: middle lobe of lung Qualified Code(s): J69.0 - Pneumonitis due to inhalation of food and vomit (2) CHF due to valvular disease Current Visit: Yes Status: Acute Code(s): I50.9 - Heart failure, unspecified ; I38 - Endocarditis, valve unspecified (3) Iron deficiency anemia Current Visit: Yes Status: Chronic Code(s): D50.9 - Iron deficiency anemia, unspecified Qualifiers: Iron deficiency anemia type: chronic blood loss Qualified Code(s): D50.0 - Iron deficiency anemia secondary to blood loss (chronic) (4) History of GI bleed Current Visit: Yes Status: Resolved Code(s): Z87.19 - Personal history of other diseases of the digestive system (5) Gastroesophageal reflux disease Current Visit: Yes Status: Chronic Qualifiers: Esophagitis presence: without esophagitis Qualified Code(s): K21.9 - Gastro -esophageal reflux disease without esophagitis (6) Vitamin D deficiency Current Visit: Yes Status: Chronic (7) Osteoporosis Current Visit: Yes Status: Chronic Onset Date: 04/29/13 Code(s): M81.0 - Age-related osteoporosis without current pathological fracture Qualifiers: Presence of current pathological fracture: unspecified (8) Hyperlipidemia Current Visit: Yes Status: Chronic Onset Date: 04/29/13 Code(s): E78.5 - Hyperlipidemia, unspecified Qualifiers: Hyperlipidemia type: unspecified Qualified Code(s): E78.5 - Hyperlipidemia , unspecified (9) HTN (hypertension) Current Visit: Yes Status: Chronic Code(s): I10 - Essential (primary) hypertension Qualifiers: Hypertension type: essential hypertension Qualified Code(s): I10 - Essential (primary) hypertension (10) Hypercholesterolemia Current Visit: Yes Status: Chronic Code(s): E78.00 - Pure hypercholesterolemia, unspecified (11) H/O aortic valve replacement Current Visit: Yes Status: Chronic Onset Date: 07/20/15 Code(s): Z95.2 - Presence of prosthetic heart valve - Assessment / Plan Additional Assessment/Plan Details: Admit the patient. Overall I suspect given the vomiting but the patient had early last week she has developed an aspiration pneumonia from this, and given her frequent PVCs I' m going to stop Zithromax and continue Rocephin and add Flagyl. Today is day 1 of antibiotics. Duonebs and codeine for cough. Place Dia catheter and diurese with Lasix. Check labs tomorrow. Continue home medications otherwise. I discussed with the patient regarding her mechanical aortic valve replacement, and the plan is still to go to Coumadin for stroke prevention, but she will do this as an outpatient with her noc technician. CODE STATUS is full code. I discussed the above plan with the patient and her family and they agreed.
[2017-08-16] MEDS ORDERED: POTASSIUM CHLORIDE 20 MEQ TAB PO ONE (18:06)
[2017-08-16] MEDS: metroNIDAZOLE 500mg (Premix) 500 MG/100 ML BAG IV SCH (18:17)
[2017-08-16] MEDS: GUAIFENESIN/CODEINE SYRUP 100 MG/ 10 MG/ 5 ML UD CUP PO PRN (19:55)
[2017-08-16] MEDS ORDERED: Calcium/Vit D 600mg/400u Tab 1 TAB TABLET PO SCH (21:00)
[2017-08-16] MEDS ORDERED: Mirtazapine Tab 15 MG TAB PO SCH (21:00)
[2017-08-17] MEDS: metroNIDAZOLE 500mg (Premix) 500 MG/100 ML BAG IV SCH (01:22)
[2017-08-17] MEDS: GUAIFENESIN/CODEINE SYRUP 100 MG/ 10 MG/ 5 ML UD CUP PO PRN (01:30)
[2017-08-17] MEDS ORDERED: FUROSEMIDE 10 MG/1 ML - 4 ML IVP ONE (01:44)
[2017-08-17] MEDS ORDERED: Sodium Chloride 0.9% 1,000 ML ONE (02:14)
[2017-08-17] MEDS ORDERED: SUCCINYLCHOLINE CHLORIDE 20 MG/1 ML - 10 ML IVP ONE (02:18)
[2017-08-17] MEDS ORDERED: fentaNYL Inj 100 MCG/2 ML VIAL IVP ONE ×2 (02:18→03:26)
[2017-08-17] MEDS ORDERED: ETOMIDATE 2 MG/1 ML - 20 ML IVP ONE (02:18)
[2017-08-17] MEDS ORDERED: SODIUM BICARBONATE 8.4% - 50 ML ADULT SYRINGE IV ONE (02:21)
[2017-08-17] MEDS ORDERED: ALTEPLASE 100 MG VIAL IV ONE (02:24)
[2017-08-17] MEDS ORDERED: SODIUM BICARBONATE 8.4% - 50 ML VIAL ONE (02:33)
[2017-08-17] MEDS ORDERED: SODIUM BICARBONATE 8.4% - 50 ML ADULT SYRINGE ONE (02:34)
[2017-08-17] MEDS ORDERED: Propofol 1,000 MG/100 ML VIAL IV ONE (02:45)
[2017-08-17] MEDS ORDERED: MIDAZOLAM 5 MG/1 ML IV ONE (02:57)
[2017-08-17] MEDS ORDERED: MIDAZOLAM 5 MG/1 ML IVP ONE ×4 (02:57→05:13)
[2017-08-17] MEDS ORDERED: PROPOFOL 10 MG/1 ML (200 MG/20 ML) VIAL IV ONE ×2 (02:57→03:08)
[2017-08-17 03:08] LABS: Hematocrit [HCT] 31.4 % (37.0-47.0); Hemoglobin [HGB] 9.7 g/dL (12.0-16.0); MEAN CORPUSCULAR HEMOGLOBIN 24.1 PG (27-31); MEAN CORPUSCULAR HGB CONC 30.9 g/dL (33-37); MEAN CORPUSCULAR VOLUME 78.1 FL (81-99); MEAN PLATELET VOLUME 11.6 FL (7.4-12.2); RED BLOOD COUNT 4.02 10^6/uL (4.20-5.40)
[2017-08-17 03:09] LABS: PLATELET MORPHOLOGY COMMENT NORMAL MORPHOLOGY (NORM); RBC MORPHOLOGY COMMENT SEE COMMENTS (NORM); WBC MORPHOLOGY COMMENT NORMAL MORPHOLOGY (NORM)
[2017-08-17 03:10] LABS: BAND NEUTROPHILS % 0 % (0-10); BASOPHILS % (MANUAL) 1 % (0-1); EOSINOPHILS % (MANUAL) 0 % (0-8); MONOCYTES % (MANUAL) 5 % (0-12); NEUTROPHILS % (MANUAL) 75 % (50-80)
[2017-08-17 03:11] LABS: BLOOD UREA NITROGEN 24 mg/dL (7-22); BUN/CREATININE RATIO 17.14 (6-20); LIPASE 45 IU/L (23-300); MAGNESIUM 2.2 mg/dL (1.6-2.4); SERUM ALBUMIN 3.1 g/dL (3.5-4.8)
[2017-08-17] MEDS ORDERED: FUROSEMIDE 10 MG/1 ML - 10 ML IVP ONE ×2 (03:29→04:55)
[2017-08-17] MEDS ORDERED: fentaNYL Inj 100 MCG/2 ML VIAL IM PRN (03:37)
[2017-08-17] MEDS ORDERED: Propofol 1,000 MG/100 ML VIAL IV SCH ×2 (03:45→04:55)
--- NOTE | 2017-08-17 04:12 | PROCEDURE1 ---
Procedure - - Date and Time of Service: 08/17/2017, 0410 Procedure Performed: Central Line : Non Tunneled Procedure Note: Procedure performed: Femoral Vein central venous catheter placement Indication for procedure: Respiratory failure, CODE BLUE, need for venous access, . Description of procedure: Ultrasound guidance was used to identify the right femoral vein. The area was cleansed with Betadine. The patient was intubated and on [id number]. Using an introducer needle attached to a 5 mL syringe, this was inserted in the femoral triangle medially towards the femoral vein and the needle was visualized going into the femoral vein. There was a flash of venous blood as the femoral vein was cannulated via the introducer needle. The syringe was removed from the needle and dark, non-pulsatile venous blood was noted at the hub of the needle. A guidewire was inserted through the needle into the femoral vein and the needle was removed over the wire. A 10 blade was then used to perform a small dermatotomy at the needle insertion site. The venous dilator was then placed over the guidewire using Seldinger technique, and then removed. A 3 port central venous catheter was then placed over the guidewire inserted into the femoral vein and the guidewire was removed. All ports were flushed with normal saline. All ports had draw back. The catheter was sutured into place, and the skin was cleansed with chlorhexidine and the catheter was dressed. Complications: None Disposition: Patient is in critical condition in the intensive care unit
--- NOTE | 2017-08-17 04:21 | PDOC(PROG) ---
Date and Time of Service: 08/17/2017, 0418 Interval History: I was called that the patient was coded. The patient had some difficulty breathing and we had ordered a chest x-ray, Lasix, and were awaiting results of those procedures and the patient abruptly stopped breathing. A CODE BLUE was called and when I arrived the emergency room physician was in the room, and the patient was in the full respiratory arrest. She had a pulse and never lost her pulse through the entire code. She was found to be quite acidotic and we gave her several amps of bicarbonate, and on examination she was very mottled. She had significant wheezing on respiratory exam. She was intubated, and eventually placed on a ventilator. Her initial blood gas showed a very acidotic pH with PCO2 in the 80s. We thought that she could have tamponade, and were only able to obtain 1 mL so that seemed to be ruled out with attempt at pericardiocentesis. We pushed tPA and the thought that this could be a massive pulmonary emboli. Labs were drawn and they are resulted in computer and can be reviewed, but essentially the big changes were an increased brain natruretic peptide, creatinine up to 1.4, a d-dimer that was elevated. She was hypertensive through the code, and we had to place an emergent femoral line for IV access. The procedure note is noted separate of this note. Patient's daughter was able to visualize the code as it proceeded and we discussed the situation as well. Overall, my suspicion with improvement in blood gas with a pH going to 7.37 and CO2 into the 40s after tPA administration and stabilization of airway and respiratory status is at we could be dealing with a massive pulmonary emboli. We are trying to get a CT scan now to confirm. We were able to sedate with propofol, with a total of 80 mg bolus, and then she has been maintained on a rate of 40 mcg/kg/m. We gave 2 doses of Versed, fentanyl total of 100 g, and Versed a total of 10 mg for sedation. An OG tube was also placed. Objective : Data - Labs CBC and BMP: 08/17/17 02:50 08/17/17 02:50 Additional Lab Results: Laboratory Results 08/16/17 08/16/17 08/16/17 Range/Units 08:19 08:45 08:45 WBC 9.68 (4.8-10.8) 10^3/uL RBC 4.69 (4.20-5.40) 10^6/uL Hgb 11.1 L (12.0-16.0) g/dL Hct 36.1 L (37.0-47.0) % MCV 77.0 L (81-99) FL MCH 23.7 L (27-31) PG MCHC 30.7 L (33-37) g/dL RDW Std Deviation 70.5 H (39-50) fL RDW Coeff of Blanca 26.4 H (11.5-14.5) % Plt Count 293 (140-350) 10*3/uL MPV 11.8 (7.4-12.2) FL Immature Gran % (Auto) 0.1 (0-5) % Neut % (Auto) 76.6 (50-80) % Lymph % (Auto) 15.0 (10-50) % [place] % (Auto) 7.2 (5-15) % Eos % (Auto) 0.7 (0-8) % Baso % (Auto) 0.4 (0-1) % Immature Gran # (Auto) 0.01 10*3/UL Neut # (Auto) 7.41 10*3/UL Lymph # (Auto) 1.45 10*3/uL [place] # (Auto) 0.70 (0.3-0.8) 10*3/UL Eos # (Auto) 0.07 10*3/UL Baso # (Auto) 0.04 10*3/UL Neutrophils % (Manual) (50-80) % Band Neutrophils % (0-10) % Lymphocytes % (Manual) (10-50) % Monocytes % (Manual) (0-12) % Eosinophils % (Manual) (0-8) % Basophils % (Manual) (0-1) % Metamyelocytes % Myelocytes % Promyelocytes % Blast Cells WBC Morphology Comment Normal morphology (NORM) Plt Morphology Comment Normal morphology (NORM) RBC Morph Comment See comments (NORM) PT 10.7 (9.7-11.4) secs INR 1.01 (0.00-5.90) N/A APTT (22.6-36.2) SECS D-Dimer 0.38 (0.00-0.59) mg/L VBG pH 7.46 H (7.32-7.42) VBG pCO2 31 L (45-55) mmHg VBG HCO3 23 (22-26) mmol/L VBG Base Excess -1 (-2-2) MMOL/L Sodium (135-145) meq/L Potassium (3.8-5.2) meq/L Chloride (98-112) meq/L Carbon Dioxide (23-33) meq/L Anion Gap (5-20) BUN (7-22) mg/dL Creatinine (0.50-1.20) mg/dL Estimated GFR BUN/Creatinine Ratio (6-20) Glucose (78-110) mg/dL Calculated Osmolality (267-292) mOsm/kg Lactic Acid (0.70-2.10) MMOL/L Calcium (8.7-10.7) mg/dL Magnesium (1.6-2.4) mg/dL Total Bilirubin (0.3-1.2) mg/dL AST (8-39) IU/L ALT (9-52) IU/L Alkaline Phosphatase (38-126) IU/L Troponin I (< 0.040) ng/mL C-Reactive Protein (0.0-0.9) mg/dL NT-Pro-B Natriuret Pep (0-125) PG/ML Total Protein (6.1-8.0) g/dL Albumin (3.5-4.8) g/dL Globulin (2.50-4.10) g/dL Albumin/Globulin Ratio (1.3-2.0) mg/g Amylase (30-110) U/L Lipase (23-300) IU/L 08/16/17 08/16/17 08/17/17 Range/Units 08:45 08:45 02:50 WBC (4.8-10.8) 10^3/uL RBC (4.20-5.40) 10^6/uL Hgb (12.0-16.0) g/dL Hct (37.0-47.0) % MCV (81-99) FL MCH (27-31) PG MCHC (33-37) g/dL RDW Std Deviation (39-50) fL RDW Coeff of Blanca (11.5-14.5) % Plt Count (140-350) 10*3/uL MPV (7.4-12.2) FL Immature Gran % (Auto) (0-5) % Neut % (Auto) (50-80) % Lymph % (Auto) (10-50) % [place] % (Auto) (5-15) % Eos % (Auto) (0-8) % Baso % (Auto) (0-1) % Immature Gran # (Auto) 10*3/UL Neut # (Auto) 10*3/UL Lymph # (Auto) 10*3/uL [place] # (Auto) (0.3-0.8) 10*3/UL Eos # (Auto) 10*3/UL Baso # (Auto) 10*3/UL Neutrophils % (Manual) (50-80) % Band Neutrophils % (0-10) % Lymphocytes % (Manual) (10-50) % Monocytes % (Manual) (0-12) % Eosinophils % (Manual) (0-8) % Basophils % (Manual) (0-1) % Metamyelocytes % Myelocytes % Promyelocytes % Blast Cells WBC Morphology Comment (NORM) Plt Morphology Comment (NORM) RBC Morph Comment (NORM) PT (9.7-11.4) secs INR (0.00-5.90) N/A APTT (22.6-36.2) SECS D-Dimer (0.00-0.59) mg/L VBG pH (7.32-7.42) VBG pCO2 (45-55) mmHg VBG HCO3 (22-26) mmol/L VBG Base Excess (-2-2) MMOL/L Sodium 139 (135-145) meq/L Potassium 4.2 (3.8-5.2) meq/L Chloride 108 (98-112) meq/L Carbon Dioxide 19 L (23-33) meq/L Anion Gap 12 (5-20) BUN 20 (7-22) mg/dL Creatinine 1.0 (0.50-1.20) mg/dL Estimated GFR BUN/Creatinine Ratio 20.00 (6-20) Glucose 134 H (78-110) mg/dL Calculated Osmolality 292.0 (267-292) mOsm/kg Lactic Acid (0.70-2.10) MMOL/L Calcium 9.2 (8.7-10.7) mg/dL Magnesium 1.6 (1.6-2.4) mg/dL Total Bilirubin 0.3 (0.3-1.2) mg/dL AST 28 (8-39) IU/L ALT 36 (9-52) IU/L Alkaline Phosphatase 92 (38-126) IU/L Troponin I 0.020 0.065 H (< 0.040) ng/mL C-Reactive Protein 1.7 H (0.0-0.9) mg/dL NT-Pro-B Natriuret Pep 8470 H (0-125) PG/ML Total Protein 7.3 (6.1-8.0) g/dL Albumin 4.1 (3.5-4.8) g/dL Globulin 3.2 (2.50-4.10) g/dL Albumin/Globulin Ratio 1.20 L (1.3-2.0) mg/g Amylase (30-110) U/L Lipase (23-300) IU/L 08/17/17 08/17/17 08/17/17 Range/Units 02:50 02:50 02:50 WBC 8.60 (4.8-10.8) 10^3/uL RBC 4.02 L (4.20-5.40) 10^6/uL Hgb 9.7 L (12.0-16.0) g/dL Hct 31.4 L (37.0-47.0) % MCV 78.1 L (81-99) FL MCH 24.1 L (27-31) PG MCHC 30.9 L (33-37) g/dL RDW Std Deviation 70.5 H (39-50) fL RDW Coeff of Blanca 26.1 H (11.5-14.5) % Plt Count 240 (140-350) 10*3/uL MPV 11.6 (7.4-12.2) FL Immature Gran % (Auto) (0-5) % Neut % (Auto) (50-80) % Lymph % (Auto) (10-50) % [place] % (Auto) (5-15) % Eos % (Auto) (0-8) % Baso % (Auto) (0-1) % Immature Gran # (Auto) 10*3/UL Neut # (Auto) 10*3/UL Lymph # (Auto) 10*3/uL [place] # (Auto) (0.3-0.8) 10*3/UL Eos # (Auto) 10*3/UL Baso # (Auto) 10*3/UL Neutrophils % (Manual) 75 (50-80) % Band Neutrophils % 0 (0-10) % Lymphocytes % (Manual) 19 (10-50) % Monocytes % (Manual) 5 (0-12) % Eosinophils % (Manual) 0 (0-8) % Basophils % (Manual) 1 (0-1) % Metamyelocytes % Not Reportable Myelocytes % Not Reportable Promyelocytes % Not Reportable Blast Cells Not Reportable WBC Morphology Comment Normal morphology (NORM) Plt Morphology Comment Normal morphology (NORM) RBC Morph Comment See comments (NORM) PT 10.4 (9.7-11.4) secs INR 0.98 (0.00-5.90) N/A APTT 24.0 (22.6-36.2) SECS D-Dimer 1.68 H (0.00-0.59) mg/L VBG pH (7.32-7.42) VBG pCO2 (45-55) mmHg VBG HCO3 (22-26) mmol/L VBG Base Excess (-2-2) MMOL/L Sodium 142 (135-145) meq/L Potassium 5.0 (3.8-5.2) meq/L Chloride 102 (98-112) meq/L Carbon Dioxide 32 (23-33) meq/L Anion Gap 8 (5-20) BUN 24 H (7-22) mg/dL Creatinine 1.4 H (0.50-1.20) mg/dL Estimated GFR [place] BUN/Creatinine Ratio 17.14 (6-20) Glucose 329 H (78-110) mg/dL Calculated Osmolality 310.0 H (267-292) mOsm/kg Lactic Acid (0.70-2.10) MMOL/L Calcium 7.4 L (8.7-10.7) mg/dL Magnesium 2.2 (1.6-2.4) mg/dL Total Bilirubin 0.5 D (0.3-1.2) mg/dL AST 94 H (8-39) IU/L ALT 44 (9-52) IU/L Alkaline Phosphatase 86 (38-126) IU/L Troponin I (< 0.040) ng/mL C-Reactive Protein (0.0-0.9) mg/dL NT-Pro-B Natriuret Pep 06995 H (0-125) PG/ML Total Protein 5.8 L (6.1-8.0) g/dL Albumin 3.1 L (3.5-4.8) g/dL Globulin 2.7 (2.50-4.10) g/dL Albumin/Globulin Ratio 1.10 L (1.3-2.0) mg/g Amylase 64 (30-110) U/L Lipase 45 (23-300) IU/L 08/17/17 Range/Units 03:45 WBC (4.8-10.8) 10^3/uL RBC (4.20-5.40) 10^6/uL Hgb (12.0-16.0) g/dL Hct (37.0-47.0) % MCV (81-99) FL MCH (27-31) PG MCHC (33-37) g/dL RDW Std Deviation (39-50) fL RDW Coeff of Blanca (11.5-14.5) % Plt Count (140-350) 10*3/uL MPV (7.4-12.2) FL Immature Gran % (Auto) (0-5) % Neut % (Auto) (50-80) % Lymph % (Auto) (10-50) % [place] % (Auto) (5-15) % Eos % (Auto) (0-8) % Baso % (Auto) (0-1) % Immature Gran # (Auto) 10*3/UL Neut # (Auto) 10*3/UL Lymph # (Auto) 10*3/uL [place] # (Auto) (0.3-0.8) 10*3/UL Eos # (Auto) 10*3/UL Baso # (Auto) 10*3/UL Neutrophils % (Manual) (50-80) % Band Neutrophils % (0-10) % Lymphocytes % (Manual) (10-50) % Monocytes % (Manual) (0-12) % Eosinophils % (Manual) (0-8) % Basophils % (Manual) (0-1) % Metamyelocytes % Myelocytes % Promyelocytes % Blast Cells WBC Morphology Comment (NORM) Plt Morphology Comment (NORM) RBC Morph Comment (NORM) PT (9.7-11.4) secs INR (0.00-5.90) N/A APTT (22.6-36.2) SECS D-Dimer (0.00-0.59) mg/L VBG pH (7.32-7.42) VBG pCO2 (45-55) mmHg VBG HCO3 (22-26) mmol/L VBG Base Excess (-2-2) MMOL/L Sodium (135-145) meq/L Potassium (3.8-5.2) meq/L Chloride (98-112) meq/L Carbon Dioxide (23-33) meq/L Anion Gap (5-20) BUN (7-22) mg/dL Creatinine (0.50-1.20) mg/dL Estimated GFR BUN/Creatinine Ratio (6-20) Glucose (78-110) mg/dL Calculated Osmolality (267-292) mOsm/kg Lactic Acid 1.7 (0.70-2.10) MMOL/L Calcium (8.7-10.7) mg/dL Magnesium (1.6-2.4) mg/dL Total Bilirubin (0.3-1.2) mg/dL AST (8-39) IU/L ALT (9-52) IU/L Alkaline Phosphatase (38-126) IU/L Troponin I (< 0.040) ng/mL C-Reactive Protein (0.0-0.9) mg/dL NT-Pro-B Natriuret Pep (0-125) PG/ML Total Protein (6.1-8.0) g/dL Albumin (3.5-4.8) g/dL Globulin (2.50-4.10) g/dL Albumin/Globulin Ratio (1.3-2.0) mg/g Amylase (30-110) U/L Lipase (23-300) IU/L - Imaging X-Ray Status: Image Reviewed by Me (Chest x-ray after intubation, shows the tube that appears to be in the correct location, and evidence of significant fluid overload bilaterally.) - EKG Data -: EKG Interpreted by Me (Is ordered and is pending at this time. On the monitor, the patient was in sinus tachycardia initially, and has remained tachycardic with occasional PVCs.) Objective : Exam - General General Appearance: Severe Distress Additional General Exam Details: Vital Signs - Last Taken Temperature 98.8 F 08/17/17 01:00 Pulse Rate 109 H 08/17/17 01:00 Respiratory Rate 28 H 08/17/17 01:00 Blood Pressure 159/72 08/17/17 01:00 Pulse Ox 95 08/17/17 01:00 This is on vent settings of tidal volume of 500, FiO2 50%, rate of 14, PEEP of 5 - ENT ENT Exam: Mucous Membranes Dry - Respiratory Respiratory Exam: Wheezes, Respiratory Distress - Cardiovascular Cardiovascular Exam: No Gallops, No Rubs, Tachycardia, Clicks - GI/Abdominal GI/Abdominal Exam: Non Tender, Non Distended, Soft - Extremities Extremities Exam: No Edema Present Additional Extremities Exam Details: Patient's lower extremity is impaired mottled on examination is that her entire body, but in particular lower extremities. - Neurological Additional Neurological Exam Details: I could not conduct a good neurologic examination given the current situation and sedative medications as discussed - Central Line Examination Central Line Location: Femoral (R) (We placed a right femoral vein central venous catheter during this code. See procedure note.) Assessment and Plan - Patient Problems (1) Acute respiratory failure with hypercapnia Current Visit: Yes Status: Acute Code(s): J96.02 - Acute respiratory failure with hypercapnia (2) Acute congestive heart failure Current Visit: Yes Status: Acute Code(s): I50.9 - Heart failure, unspecified Qualifiers: Congestive heart failure type: unspecified congestive heart failure type Qualified Code(s): I50.9 - Heart failure, unspecified (3) Aspiration pneumonia due to gastric secretions Current Visit: Yes Status: Acute Code(s): J69.0 - Pneumonitis due to inhalation of food and vomit Qualifiers: Laterality: right Lung location: middle lobe of lung Qualified Code(s): J69.0 - Pneumonitis due to inhalation of food and vomit (4) CHF due to valvular disease Current Visit: Yes Status: Acute Code(s): I50.9 - Heart failure, unspecified ; I38 - Endocarditis, valve unspecified (5) Iron deficiency anemia Current Visit: Yes Status: Chronic Code(s): D50.9 - Iron deficiency anemia, unspecified Qualifiers: Iron deficiency anemia type: chronic blood loss Qualified Code(s): D50.0 - Iron deficiency anemia secondary to blood loss (chronic) (6) History of GI bleed Current Visit: Yes Status: Resolved Code(s): Z87.19 - Personal history of other diseases of the digestive system (7) Gastroesophageal reflux disease Current Visit: Yes Status: Chronic Qualifiers: Esophagitis presence: without esophagitis Qualified Code(s): K21.9 - Gastro -esophageal reflux disease without esophagitis (8) Vitamin D deficiency Current Visit: Yes Status: Chronic (9) Osteoporosis Current Visit: Yes Status: Chronic Onset Date: 04/29/13 Code(s): M81.0 - Age-related osteoporosis without current pathological fracture Qualifiers: Presence of current pathological fracture: unspecified (10) Hyperlipidemia Current Visit: Yes Status: Chronic Onset Date: 04/29/13 Code(s): E78.5 - Hyperlipidemia, unspecified Qualifiers: Hyperlipidemia type: unspecified Qualified Code(s): E78.5 - Hyperlipidemia , unspecified (11) HTN (hypertension) Current Visit: Yes Status: Chronic Code(s): I10 - Essential (primary) hypertension Qualifiers: Hypertension type: essential hypertension Qualified Code(s): I10 - Essential (primary) hypertension (12) Hypercholesterolemia Current Visit: Yes Status: Chronic Code(s): E78.00 - Pure hypercholesterolemia, unspecified (13) H/O aortic valve replacement Current Visit: Yes Status: Chronic Onset Date: 07/20/15 Code(s): Z95.2 - Presence of prosthetic heart valve - Assessment / Plan Additional Assessment/Plan Details: The patient was transferred to the intensive care unit upon stabilization following code on ventilator settings as discussed above. We will use propofol and fentanyl for sedation and add and benzodiazepines if necessary. We will use fentanyl for pain control. tPA was administered, and I'm trying to get a CT scan to confirm whether or not there is pulmonary emboli. We will add Protonix. After CT scan, I will discuss with the referral center to see if we can transfer the patient to a higher level of care now that it appears that we have her respiratory status stabilized and her vitals seem stabilize for the time being. I will repeat a troponin in about 6 hours. Awaiting EKG. I discussed with the family. Initial concern was stabilization of respiratory status with the patient, and then work towards a diagnosis and transfer to a higher level of care. They agree with the plan. Again working diagnosis at this time is pulmonary emboli. It's difficult to say what that would happen given that she is on dalteparin at full dose for her heart valve, but again clinically it seems to make sense. ARDS is also a possibility. I've pushed Lasix, several doses today. Minimal urine output of about 600 mL's for over 100 mg of Lasix in the last 12 hours. Patient remains in critical condition Total critical care time not counting time for line, 65 minutes, no overlap.
[2017-08-17 04:49] LABS: ABG PCO2 88.5 MMHG (34-38); ABG PO2 285 MMHG (65-75)
[2017-08-17 04:50] LABS: ABG BASE EXCESS -9 MMOL/L (-2-2); ABG OXYGEN SATURATION 100 % (90-100)
[2017-08-17 04:52] LABS: VENOUS PCO2 47.8 mmHg (45-55); VENOUS PH 7.366 (7.32-7.42)
[2017-08-17] MEDS ORDERED: ALBUTEROL SULFATE 2.5 MG/3 ML NEB PRN (04:55)
[2017-08-17] MEDS ORDERED: LIDOCAINE W/ SODIUM BICARB 0.5 ML SYR SUBD PRN ×2 (04:55→05:09)
[2017-08-17] MEDS ORDERED: LIDOCAINE HCL 2 % 10 ML JELLY URO-JECT TOPICAL PRN ×2 (04:55→05:09)
[2017-08-17] MEDS ORDERED: NORMAL SALINE 10 ML SYRINGE FLUSH IVP PRN ×2 (04:55→05:09)
--- NOTE | 2017-08-17 04:59 | DI ---
EXAM: XR Chest, 1 View CLINICAL HISTORY: Physician Notes: Tech Comments: TECHNIQUE: Frontal view of the chest. COMPARISON: 08/16/17 FINDINGS: Limitations: Stable upper limits of normal cardiovascular silhouette. Lungs: Interval development of interstitial opacity with patchy airspace disease in the mid to lower lung. This may reflect asymmetric edema versus pneumonia. Left lateral lower lung excluded from the study. Pleural space: Unremarkable. No pneumothorax. Heart: Unremarkable. No cardiomegaly. Mediastinum: NG tube tip projecting over the lower chest slightly right of the midline likely in the distal esophagus/hiatal hernia. Bones/joints: Prior median sternotomy and valvular replacement. Tubes, lines and devices: Interval placement of endotracheal tube tip likely at the level of the clavicular heads. This is partly obscured by adjacent NG tube Overlying chest leads obscure portion of the chest IMPRESSION: Interval intubation, satisfactory in position. NG tube, tip likely in the distal esophagus/hiatal hernia. Interval development of mixed interstitial and airspace disease. Asymmetric edema versus bilateral airspace disease
--- NOTE | 2017-08-17 05:07 | EKG ---
[address] [place] [address] Measurements Intervals [place] Rate: 86 P: 62 CT: 167 QRS: -33 QRSD: 91 T: 85 QT: 417 QTc: 461 Interpretive Statements SINUS RHYTHM WITH OCCASIONAL VENTRICULAR PREMATURE COMPLEXES MARKED LEFT AXIS DEVIATION [QRS AXIS < -30] NONSPECIFIC T-WAVE ABNORMALITY PROLONGED QT INTERVAL Compared to ECG 08/16/2017 07:41:27 Left-axis deviation now present T-wave abnormality now present Prolonged QT interval now present Electronically Signed On 08-18-17 08:44:48 MST by Galindo Houston MD [email or web address]
[2017-08-17] MEDS ORDERED: ONDANSETRON 4 MG/2 ML VIAL IV PRN (05:09)
--- NOTE | 2017-08-17 05:13 | DI ---
EXAM: CT Angiography Chest Without and With Intravenous Contrast CLINICAL HISTORY: Physician Notes: Tech Comments: TECHNIQUE: Axial computed tomographic angiography images of the chest without and with intravenous contrast using pulmonary embolism protocol. MIP reconstructed images were created and reviewed. COMPARISON: 08/16/17 Negative for pulmonary embolism. FINDINGS: Pulmonary arteries: Unremarkable. No pulmonary embolism. Aorta: Calcified atherosclerotic tortuous ectatic thoracic aorta. No thoracic aortic aneurysm. Lungs: Patchy airspace disease in both upper lobes, new compared to the prior study. Interval development of focal consolidation in the dependent left upper lobe and bilateral lower lobes which may reflect aspiration pneumonia. Mild interstitial edema. Pleural space: Tiny bilateral pleural effusions. No pneumothorax. Heart: No pericardial effusion. No evidence of RV dysfunction. Mediastinum: Mild dilatation of the esophagus. Large hiatal hernia containing portion of the stomach in the lower chest, unchanged. Bones/joints: Degenerative changes in the thoracic spine. Vertebral plasties at multiple levels in the mid to lower thoracic spine, unchanged. No acute fracture. No dislocation. Soft tissues: Unremarkable. Lymph nodes: Small mediastinal lymph nodes, unchanged likely reactive. Gallbladder and bile ducts: Cholelithiasis in the visualized gallbladder. Adrenals: Nodular adrenal glands, unchanged. Kidneys and ureters: Nonobstructing left renal calculus in the visualized upper left kidney. Tubes, lines and devices: Endotracheal tube, satisfactory in position. NG tube, tip in the large hernia. Other findings: No evidence for dissection. IMPRESSION: 1. Negative for pulmonary embolism. 2. Interval bilateral multifocal pneumonia. 3. Mild edema and tiny effusions. 4. Nodular densities seen in the left upper lobe and superior segment of the left lower lobe, unchanged and nonspecific. Follow-up to clearing recommended to exclude underlying nodule in 3-4 months 5. Large hiatal hernia. NG tube, tip in the large hernia 6. Additional findings as noted above
--- NOTE | 2017-08-17 05:18 | PDOC(PROG) ---
General Note Progress Note: I was called to patient's room at 0208 hours for a CODE BLUE. When I arrived patient was tachycardic at 125 beats a minute with an oxygenation of 98%, sonorous respirations, and unresponsive. Decision was made for rapid sequence intubation using etomidate and succinylcholine. At 0 220 hours using a laryngoscope a 7.5 endotracheal tube was passed and was secured at 21 cm at the teeth. The initial placement of endotracheal tube appeared to be into the left long and was slightly withdrawn to the 21 cm raysa. There was good color change on the CO2 monitor and good breath sounds bilaterally after with Dohle of the tube to 21 cm. An OG tube was then placed. Post intubation chest x-ray done at 0254 hrs. shows endotracheal tube tip to be just above the josé and orogastric tube in good position. No pneumothorax appreciated. Patient was noted to be mottled and a demarcation line at mid chest with purple coloration of her skin superiorly to the crown of the head. My differential included pulmonary embolism versus pericardial effusion. Because of the patient being on anticoagulants I felt that the probability of pulmonary embolism was less then the probability of pericardial effusion. Her chest was prepped with chlorhexidine, then using a pericardial centesis needle, pericardial sac was entered via the left sternal border at the sixth intercostal space. Approximately 3 mL of blood was aspirated, no further blood was able to be obtained, no air was aspirated. At 228 hours she received her first Of bicarbonate, a second amp of bicarbonate followed at 229 hours with a blood pressure found to be 173/79 and tachycardic at 125. Labs were drawn at 243 hours and a third amp of bicarbonate was administered. At 250 hours a fourth amp of bicarbonate was administered. Propofol was given, 40 mg, at 0241 hrs. at 0244 hrs. TPA was pushed at 20 mL/m. Propofol was started at 0248 hours with the patient receiving 40 mg IV push. At this time a central line was placed by Dr. Cortes in the right femoral vein. Patient was then taken to the ICU at 0258 hrs. At 0305 hrs. vital signs showed a pulse improved to 104 beats a minute, patient was on the ventilator at 20 respirations per minute. Oxygenation was 92% on 50 % oxygen. Blood Pressure was found to be 111/81.
[2017-08-17] MEDS ORDERED: LEVOTHYROXINE 50 MCG TABLET PO SCH ×2 (05:30)
[2017-08-17] MEDS: fentaNYL Inj 100 MCG/2 ML VIAL IM PRN ×2 (06:05→08:30)
[2017-08-17] MEDS ORDERED: MIDAZOLAM 5 MG/1 ML IVP PRN (06:09)
--- NOTE | 2017-08-17 06:24 | DCSUMMARY ---
Hospitalization Summary Admit Date: 08/16/17 Discharge Date: 08/17/17 Primary Diagnosis:: acute respiratory failure, hypercapnic, unclear etiology Hospital Course: This very pleasant 72-year-old female that was admitted for what appeared to be a possible aspiration versus me acquired pneumonia. She was placed on Rocephin , had a dose of Zithromax which was discontinued, and was placed on Flagyl. Sometime around 3 AM she had acute respiratory failure and was coded. She was intubated, and was found to be acidotic. His presumed that she might have a blood clot and tPA was administered. Patient was transferred to the intensive care unit, pH was corrected, and the patient is stabilized in terms of her blood pressures, respiratory rate, and blood gas status. She is afebrile at this time. Workup was thus ensued with CT scans and it was negative for pulmonary emboli, but positive for bilateral multifocal pneumonia with bilateral small pleural effusions. It is not clear what the cause of her respiratory failure is. Several labs were done and thus far no evidence for myocardial infarction. BNP is elevated suggesting congestive heart failure or volume overload of some type. Extensive discussion with family, including the patient's daughter, Laly was done, and we determined that the best thing to do would be to transfer this patient to [facility] for further critical care and pulmonary care. I spoke with Dr. Lang regarding the patient's case and he agreed to accept the patient. In terms of peripheral arterial disease, the patient has a complex history including carotid artery stent earlier in 2017. She recently was stopped on Plavix as it had been over 3 months since her carotid artery stent and she had had occult anemia which presented about 3 months ago. She is on antiplatelet and anticoagulant therapy in the setting of a prior mechanical aortic valve and severe peripheral arterial disease with stents and extremity bypass procedures as well as angioplasties. This did not seem to be too much of an issue on presentation today. In terms of her respiratory status, her history was suggestive of either community acquired pneumonia or aspiration pneumonia given her vomiting in the days prior to her onset of cough. Her cough and been persistent over the last 2 days. She was noted to have some expiratory wheezing on exam, and retrocardiac infiltrate was noted. She was treated with Rocephin and Zithromax. Zithromax was later stopped. The patient's therapy was continued with Rocephin and Flagyl. She went into acute respiratory failure as described. Please see my progress note from earlier today regarding those issues. In short, she was acidotic and hypercapnic and it was thought that she could have either Tampanode or pulmonary embolism she was mottled as well. Interestingly, she did not lose her pulse. She required intubation, and was transfer to the intensive care unit, and overall her perfusion improved with tPA as well as bicarbonate. CT scan was done and did not reveal any evidence of pulmonary emboli but her pneumonia seems worse with bilateral multifocal pneumonia. It is not clear why this is progressing to this rate. All waiting for transport, the patient's neck seems to be swelling to some degree, and since we are to have done one CT scan with contrast today, I felt it best to hold off on contrast but we will get a soft tissue CT scan without contrast of the neck. The patient has not had her dalteparin for a total of 36 hours and it was advised to hold off on that for now due to her tPA administration. I'm holding several of her oral medications but will continue her on her beta ana m, RANDEE inhibitor, and aspirin with the NG tube in place. Patient has several other medical issues including hypertension, hypercholesterolemia, depression which is well controlled, osteoporosis, and they did not present issues during the hospital stay. Exam - - Exam: see exam notes earlier in today's progress note. - Vitals Vital Signs: Vital Signs Temperature 98.8 F Temperature Source Temporal Artery Scan Pulse Rate [Apical] 85 Pulse Rate [Pulse Oximeter 109 Right] Pulse Rate 94 Respiratory Rate 15 Blood Pressure [Left Arm] 119/61 Pulse Ox 94 Oxygen Flow Rate 5 Oxygen Delivery Method Mechanical Ventilator Height 5 ft 5 in Weight 175 lb 12.8 oz - General General Appearance: Severe Distress - ENT Additonal ENT Exam Details: NG tube is in place. Endotracheal tube is in place. Chest x-ray confirmed in the correct locations. - Neck Additional Neck Exam Details: There is increased fullness to the neck, but no crepitus and no emphysematous feel of the skin on palpation. Minimal erythema but no signs of cellulitis. Not hot to the touch. Carotid bruit on the left. - Respiratory Respiratory Exam: POSITIVE: Breathing Non Labored (Not labored on the ventilator ), Wheezes, Coarse Breath Sounds - Cardiovascular Cardiovascular Exam: POSITIVE: RRR, No Gallops, No Rubs, No JVD, Clicks - GI/Abdominal GI/Abdominal Exam: POSITIVE: Non Distended, Soft - Exam: POSITIVE: Dia Catheter in Place (Urine appears clear, but 300 MLS out here in the past 4 hours) - Extremities Extremities Exam: POSITIVE: No Clubbing Present, No Edema Present, No Cyanosis Present - Neurological Additional Neurological Exam Details: On ventilator, on propofol and Versed and fentanyl - Central Line Examination Central Line Location: Femoral (R) (Right femoral central venous catheter in place.) Data Perinent Studies: Laboratory Results 08/16/17 08/16/17 08/16/17 Range/Units 08:19 08:45 08:45 WBC 9.68 (4.8-10.8) 10^3/uL RBC 4.69 (4.20-5.40) 10^6/uL Hgb 11.1 L (12.0-16.0) g/dL Hct 36.1 L (37.0-47.0) % MCV 77.0 L (81-99) FL MCH 23.7 L (27-31) PG MCHC 30.7 L (33-37) g/dL RDW Std Deviation 70.5 H (39-50) fL RDW Coeff of Blanca 26.4 H (11.5-14.5) % Plt Count 293 (140-350) 10*3/uL MPV 11.8 (7.4-12.2) FL Immature Gran % (Auto) 0.1 (0-5) % Neut % (Auto) 76.6 (50-80) % Lymph % (Auto) 15.0 (10-50) % Charles % (Auto) 7.2 (5-15) % Eos % (Auto) 0.7 (0-8) % Baso % (Auto) 0.4 (0-1) % Immature Gran # (Auto) 0.01 10*3/UL Neut # (Auto) 7.41 10*3/UL Lymph # (Auto) 1.45 10*3/uL Charles # (Auto) 0.70 (0.3-0.8) 10*3/UL Eos # (Auto) 0.07 10*3/UL Baso # (Auto) 0.04 10*3/UL Neutrophils % (Manual) (50-80) % Band Neutrophils % (0-10) % Lymphocytes % (Manual) (10-50) % Monocytes % (Manual) (0-12) % Eosinophils % (Manual) (0-8) % Basophils % (Manual) (0-1) % Metamyelocytes % Myelocytes % Promyelocytes % Blast Cells WBC Morphology Comment Normal morphology (NORM) Plt Morphology Comment Normal morphology (NORM) RBC Morph Comment See comments (NORM) PT 10.7 (9.7-11.4) secs INR 1.01 (0.00-5.90) N/A APTT (22.6-36.2) SECS D-Dimer 0.38 (0.00-0.59) mg/L ABG pH (7.35-7.45) ABG pCO2 (34-38) MMHG ABG pO2 (65-75) MMHG ABG HCO3 (22-26) ABG Total CO2 (23-27) MMOL/L ABG O2 Saturation (90-100) % ABG Base Excess (-2-2) MMOL/L VBG pH 7.46 H (7.32-7.42) VBG pCO2 31 L (45-55) mmHg VBG HCO3 23 (22-26) mmol/L VBG Base Excess -1 (-2-2) MMOL/L FiO2 Sodium (135-145) meq/L Potassium (3.8-5.2) meq/L Chloride (98-112) meq/L Carbon Dioxide (23-33) meq/L Anion Gap (5-20) BUN (7-22) mg/dL Creatinine (0.50-1.20) mg/dL Estimated GFR BUN/Creatinine Ratio (6-20) Glucose (78-110) mg/dL Calculated Osmolality (267-292) mOsm/kg Lactic Acid (0.70-2.10) MMOL/L Calcium (8.7-10.7) mg/dL Magnesium (1.6-2.4) mg/dL Total Bilirubin (0.3-1.2) mg/dL AST (8-39) IU/L ALT (9-52) IU/L Alkaline Phosphatase (38-126) IU/L Troponin I (< 0.040) ng/mL C-Reactive Protein (0.0-0.9) mg/dL NT-Pro-B Natriuret Pep (0-125) PG/ML Total Protein (6.1-8.0) g/dL Albumin (3.5-4.8) g/dL Globulin (2.50-4.10) g/dL Albumin/Globulin Ratio (1.3-2.0) mg/g Amylase (30-110) U/L Lipase (23-300) IU/L 08/16/17 08/16/17 08/17/17 Range/Units 08:45 08:45 02:24 WBC (4.8-10.8) 10^3/uL RBC (4.20-5.40) 10^6/uL Hgb (12.0-16.0) g/dL Hct (37.0-47.0) % MCV (81-99) FL MCH (27-31) PG MCHC (33-37) g/dL RDW Std Deviation (39-50) fL RDW Coeff of Blanca (11.5-14.5) % Plt Count (140-350) 10*3/uL MPV (7.4-12.2) FL Immature Gran % (Auto) (0-5) % Neut % (Auto) (50-80) % Lymph % (Auto) (10-50) % Charles % (Auto) (5-15) % Eos % (Auto) (0-8) % Baso % (Auto) (0-1) % Immature Gran # (Auto) 10*3/UL Neut # (Auto) 10*3/UL Lymph # (Auto) 10*3/uL Charles # (Auto) (0.3-0.8) 10*3/UL Eos # (Auto) 10*3/UL Baso # (Auto) 10*3/UL Neutrophils % (Manual) (50-80) % Band Neutrophils % (0-10) % Lymphocytes % (Manual) (10-50) % Monocytes % (Manual) (0-12) % Eosinophils % (Manual) (0-8) % Basophils % (Manual) (0-1) % Metamyelocytes % Myelocytes % Promyelocytes % Blast Cells WBC Morphology Comment (NORM) Plt Morphology Comment (NORM) RBC Morph Comment (NORM) PT (9.7-11.4) secs INR (0.00-5.90) N/A APTT (22.6-36.2) SECS D-Dimer (0.00-0.59) mg/L ABG pH 7.010 L (7.35-7.45) ABG pCO2 88.5 H (34-38) MMHG ABG pO2 285 H (65-75) MMHG ABG HCO3 22.4 (22-26) ABG Total CO2 25 (23-27) MMOL/L ABG O2 Saturation 100 (90-100) % ABG Base Excess -9 L (-2-2) MMOL/L VBG pH (7.32-7.42) VBG pCO2 (45-55) mmHg VBG HCO3 (22-26) mmol/L VBG Base Excess (-2-2) MMOL/L FiO2 100 Sodium 139 (135-145) meq/L Potassium 4.2 (3.8-5.2) meq/L Chloride 108 (98-112) meq/L Carbon Dioxide 19 L (23-33) meq/L Anion Gap 12 (5-20) BUN 20 (7-22) mg/dL Creatinine 1.0 (0.50-1.20) mg/dL Estimated GFR BUN/Creatinine Ratio 20.00 (6-20) Glucose 134 H (78-110) mg/dL Calculated Osmolality 292.0 (267-292) mOsm/kg Lactic Acid (0.70-2.10) MMOL/L Calcium 9.2 (8.7-10.7) mg/dL Magnesium 1.6 (1.6-2.4) mg/dL Total Bilirubin 0.3 (0.3-1.2) mg/dL AST 28 (8-39) IU/L ALT 36 (9-52) IU/L Alkaline Phosphatase 92 (38-126) IU/L Troponin I 0.020 (< 0.040) ng/mL C-Reactive Protein 1.7 H (0.0-0.9) mg/dL NT-Pro-B Natriuret Pep 8470 H (0-125) PG/ML Total Protein 7.3 (6.1-8.0) g/dL Albumin 4.1 (3.5-4.8) g/dL Globulin 3.2 (2.50-4.10) g/dL Albumin/Globulin Ratio 1.20 L (1.3-2.0) mg/g Amylase (30-110) U/L Lipase (23-300) IU/L 08/17/17 08/17/17 08/17/17 Range/Units 02:50 02:50 02:50 WBC 8.60 (4.8-10.8) 10^3/uL RBC 4.02 L (4.20-5.40) 10^6/uL Hgb 9.7 L (12.0-16.0) g/dL Hct 31.4 L (37.0-47.0) % MCV 78.1 L (81-99) FL MCH 24.1 L (27-31) PG MCHC 30.9 L (33-37) g/dL RDW Std Deviation 70.5 H (39-50) fL RDW Coeff of Blanca 26.1 H (11.5-14.5) % Plt Count 240 (140-350) 10*3/uL MPV 11.6 (7.4-12.2) FL Immature Gran % (Auto) (0-5) % Neut % (Auto) (50-80) % Lymph % (Auto) (10-50) % Charles % (Auto) (5-15) % Eos % (Auto) (0-8) % Baso % (Auto) (0-1) % Immature Gran # (Auto) 10*3/UL Neut # (Auto) 10*3/UL Lymph # (Auto) 10*3/uL Charles # (Auto) (0.3-0.8) 10*3/UL Eos # (Auto) 10*3/UL Baso # (Auto) 10*3/UL Neutrophils % (Manual) 75 (50-80) % Band Neutrophils % 0 (0-10) % Lymphocytes % (Manual) 19 (10-50) % Monocytes % (Manual) 5 (0-12) % Eosinophils % (Manual) 0 (0-8) % Basophils % (Manual) 1 (0-1) % Metamyelocytes % Not Reportable Myelocytes % Not Reportable Promyelocytes % Not Reportable Blast Cells Not Reportable WBC Morphology Comment Normal morphology (NORM) Plt Morphology Comment Normal morphology (NORM) RBC Morph Comment See comments (NORM) PT 10.4 (9.7-11.4) secs INR 0.98 (0.00-5.90) N/A APTT 24.0 (22.6-36.2) SECS D-Dimer 1.68 H (0.00-0.59) mg/L ABG pH (7.35-7.45) ABG pCO2 (34-38) MMHG ABG pO2 (65-75) MMHG ABG HCO3 (22-26) ABG Total CO2 (23-27) MMOL/L ABG O2 Saturation (90-100) % ABG Base Excess (-2-2) MMOL/L VBG pH (7.32-7.42) VBG pCO2 (45-55) mmHg VBG HCO3 (22-26) mmol/L VBG Base Excess (-2-2) MMOL/L FiO2 Sodium (135-145) meq/L Potassium (3.8-5.2) meq/L Chloride (98-112) meq/L Carbon Dioxide (23-33) meq/L Anion Gap (5-20) BUN (7-22) mg/dL Creatinine (0.50-1.20) mg/dL Estimated GFR BUN/Creatinine Ratio (6-20) Glucose (78-110) mg/dL Calculated Osmolality (267-292) mOsm/kg Lactic Acid (0.70-2.10) MMOL/L Calcium (8.7-10.7) mg/dL Magnesium (1.6-2.4) mg/dL Total Bilirubin (0.3-1.2) mg/dL AST (8-39) IU/L ALT (9-52) IU/L Alkaline Phosphatase (38-126) IU/L Troponin I 0.065 H (< 0.040) ng/mL C-Reactive Protein (0.0-0.9) mg/dL NT-Pro-B Natriuret Pep (0-125) PG/ML Total Protein (6.1-8.0) g/dL Albumin (3.5-4.8) g/dL Globulin (2.50-4.10) g/dL Albumin/Globulin Ratio (1.3-2.0) mg/g Amylase (30-110) U/L Lipase (23-300) IU/L 08/17/17 08/17/17 08/17/17 Range/Units 02:50 03:30 03:45 WBC (4.8-10.8) 10^3/uL RBC (4.20-5.40) 10^6/uL Hgb (12.0-16.0) g/dL Hct (37.0-47.0) % MCV (81-99) FL MCH (27-31) PG MCHC (33-37) g/dL RDW Std Deviation (39-50) fL RDW Coeff of Blanca (11.5-14.5) % Plt Count (140-350) 10*3/uL MPV (7.4-12.2) FL Immature Gran % (Auto) (0-5) % Neut % (Auto) (50-80) % Lymph % (Auto) (10-50) % Charles % (Auto) (5-15) % Eos % (Auto) (0-8) % Baso % (Auto) (0-1) % Immature Gran # (Auto) 10*3/UL Neut # (Auto) 10*3/UL Lymph # (Auto) 10*3/uL Charles # (Auto) (0.3-0.8) 10*3/UL Eos # (Auto) 10*3/UL Baso # (Auto) 10*3/UL Neutrophils % (Manual) (50-80) % Band Neutrophils % (0-10) % Lymphocytes % (Manual) (10-50) % Monocytes % (Manual) (0-12) % Eosinophils % (Manual) (0-8) % Basophils % (Manual) (0-1) % Metamyelocytes % Myelocytes % Promyelocytes % Blast Cells WBC Morphology Comment (NORM) Plt Morphology Comment (NORM) RBC Morph Comment (NORM) PT (9.7-11.4) secs INR (0.00-5.90) N/A APTT (22.6-36.2) SECS D-Dimer (0.00-0.59) mg/L ABG pH (7.35-7.45) ABG pCO2 (34-38) MMHG ABG pO2 (65-75) MMHG ABG HCO3 (22-26) ABG Total CO2 (23-27) MMOL/L ABG O2 Saturation (90-100) % ABG Base Excess (-2-2) MMOL/L VBG pH 7.366 (7.32-7.42) VBG pCO2 47.8 (45-55) mmHg VBG HCO3 27.4 H (22-26) mmol/L VBG Base Excess 2 (-2-2) MMOL/L FiO2 Sodium 142 (135-145) meq/L Potassium 5.0 (3.8-5.2) meq/L Chloride 102 (98-112) meq/L Carbon Dioxide 32 (23-33) meq/L Anion Gap 8 (5-20) BUN 24 H (7-22) mg/dL Creatinine 1.4 H (0.50-1.20) mg/dL Estimated GFR [employer] BUN/Creatinine Ratio 17.14 (6-20) Glucose 329 H (78-110) mg/dL Calculated Osmolality 310.0 H (267-292) mOsm/kg Lactic Acid 1.7 (0.70-2.10) MMOL/L Calcium 7.4 L (8.7-10.7) mg/dL Magnesium 2.2 (1.6-2.4) mg/dL Total Bilirubin 0.5 D (0.3-1.2) mg/dL AST 94 H (8-39) IU/L ALT 44 (9-52) IU/L Alkaline Phosphatase 86 (38-126) IU/L Troponin I (< 0.040) ng/mL C-Reactive Protein (0.0-0.9) mg/dL NT-Pro-B Natriuret Pep 64009 H (0-125) PG/ML Total Protein 5.8 L (6.1-8.0) g/dL Albumin 3.1 L (3.5-4.8) g/dL Globulin 2.7 (2.50-4.10) g/dL Albumin/Globulin Ratio 1.10 L (1.3-2.0) mg/g Amylase 64 (30-110) U/L Lipase 45 (23-300) IU/L [address] [facility] [place] [address] PH: DD: [phone] FAX: [phone] ~DIAGNOSTIC IMAGING REPORT~ Patient: Jacklyn Yancey : 1945 Sex: F Age: 72 Exam Name: CT CTA Chest Non-Coronary WWO Exam Date: 08/17/17 Report # : [id number] CPT Code: 55715 EMR/MR #: [id number] Ordering: HARLEY GARY Admiting: HARLEY GARY DO Primary: Km Real MD Attending: HARLEY GARY DO Signed EXAM: CT Angiography Chest Without and With Intravenous Contrast CLINICAL HISTORY: Physician Notes: Tech Comments: TECHNIQUE: Axial computed tomographic angiography images of the chest without and with intravenous contrast using pulmonary embolism protocol. MIP reconstructed images were created and reviewed. COMPARISON: 08/16/17 Negative for pulmonary embolism. FINDINGS: Pulmonary arteries: Unremarkable. No pulmonary embolism. Aorta: Calcified atherosclerotic tortuous ectatic thoracic aorta. No thoracic aortic aneurysm. Lungs: Patchy airspace disease in both upper lobes, new compared to the prior study. Interval development of focal consolidation in the dependent left upper lobe and bilateral lower lobes which may reflect aspiration pneumonia. Mild interstitial edema. Pleural space: Tiny bilateral pleural effusions. No pneumothorax. Heart: No pericardial effusion. No evidence of RV dysfunction. Mediastinum: Mild dilatation of the esophagus. Large hiatal hernia containing portion of the stomach in the lower chest, unchanged. Bones/joints: Degenerative changes in the thoracic spine. Vertebral plasties at multiple levels in the mid to lower thoracic spine, unchanged. No acute fracture. No dislocation. Soft tissues: Unremarkable. Lymph nodes: Small mediastinal lymph nodes, unchanged likely reactive. Gallbladder and bile ducts: Cholelithiasis in the visualized gallbladder. Adrenals: Nodular adrenal glands, unchanged. Kidneys and ureters: Nonobstructing left renal calculus in the visualized upper left kidney. Tubes, lines and devices: Endotracheal tube, satisfactory in position. NG tube, tip in the large hernia. Other findings: No evidence for dissection. IMPRESSION: 1. Negative for pulmonary embolism. 2. Interval bilateral multifocal pneumonia. 3. Mild edema and tiny effusions. 4. Nodular densities seen in the left upper lobe and superior segment of the left lower lobe, unchanged and nonspecific. Follow-up to clearing recommended to exclude underlying nodule in 3-4 months 5. Large hiatal hernia. NG tube, tip in the large hernia 6. Additional findings as noted above Dictated By: Aditi Bena MD Signed By: 08/17/17 0513 Aditi Bean MD [address] [facility] [place] [address] PH: DD: [phone] FAX: [phone] ~DIAGNOSTIC IMAGING REPORT~ Patient: Jacklyn Yancey : 1945 Sex: F Age: 72 Exam Name: XR CXR 1VW Exam Date: 08/17/17 Report # : [id number] CPT Code: 50065 EMR/MR #: [id number] Ordering: HARLEY GARY Admiting: HARLEY GARY DO Primary: Km Real MD Attending: HARLEY GARY DO Signed EXAM: XR Chest, 1 View CLINICAL HISTORY: Physician Notes: Tech Comments: TECHNIQUE: Frontal view of the chest. COMPARISON: 08/16/17 FINDINGS: Limitations: Stable upper limits of normal cardiovascular silhouette. Lungs: Interval development of interstitial opacity with patchy airspace disease in the mid to lower lung. This may reflect asymmetric edema versus pneumonia. Left lateral lower lung excluded from the study. Pleural space: Unremarkable. No pneumothorax. Heart: Unremarkable. No cardiomegaly. Mediastinum: NG tube tip projecting over the lower chest slightly right of the midline likely in the distal esophagus/hiatal hernia. Bones/joints: Prior median sternotomy and valvular replacement. Tubes, lines and devices: Interval placement of endotracheal tube tip likely at the level of the clavicular heads. This is partly obscured by adjacent NG tube Overlying chest leads obscure portion of the chest IMPRESSION: Interval intubation, satisfactory in position. NG tube, tip likely in the distal esophagus/hiatal hernia. Interval development of mixed interstitial and airspace disease. Asymmetric edema versus bilateral airspace disease Dictated By: Aditi Bean MD Signed By: 08/17/17 0459 Aditi Bean MD Patient Problems - Patient Problem List (1) Acute respiratory failure with hypercapnia Current Visit: Yes Status: Acute Code(s): J96.02 - Acute respiratory failure with hypercapnia Category: Medical (2) Acute congestive heart failure Current Visit: Yes Status: Acute Code(s): I50.9 - Heart failure, unspecified Qualifiers: Congestive heart failure type: unspecified congestive heart failure type Qualified Code(s): I50.9 - Heart failure, unspecified Category: Medical (3) Aspiration pneumonia due to gastric secretions Current Visit: Yes Status: Acute Code(s): J69.0 - Pneumonitis due to inhalation of food and vomit Qualifiers: Laterality: right Lung location: middle lobe of lung Qualified Code(s): J69.0 - Pneumonitis due to inhalation of food and vomit Category: Medical (4) CHF due to valvular disease Current Visit: Yes Status: Acute Code(s): I50.9 - Heart failure, unspecified ; I38 - Endocarditis, valve unspecified Category: Medical (5) Iron deficiency anemia Current Visit: Yes Status: Chronic Code(s): D50.9 - Iron deficiency anemia, unspecified Qualifiers: Iron deficiency anemia type: chronic blood loss Qualified Code(s): D50.0 - Iron deficiency anemia secondary to blood loss (chronic) Category: Medical (6) History of GI bleed Current Visit: Yes Status: Resolved Code(s): Z87.19 - Personal history of other diseases of the digestive system Category: Medical (7) Gastroesophageal reflux disease Current Visit: Yes Status: Chronic Qualifiers: Esophagitis presence: without esophagitis Qualified Code(s): K21.9 - Gastro -esophageal reflux disease without esophagitis Category: Medical (8) Vitamin D deficiency Current Visit: Yes Status: Chronic Category: Medical (9) Osteoporosis Current Visit: Yes Status: Chronic Onset Date: 04/29/13 Code(s): M81.0 - Age-related osteoporosis without current pathological fracture Qualifiers: Presence of current pathological fracture: unspecified Category: Medical (10) Hyperlipidemia Current Visit: Yes Status: Chronic Onset Date: 04/29/13 Code(s): E78.5 - Hyperlipidemia, unspecified Qualifiers: Hyperlipidemia type: unspecified Qualified Code(s): E78.5 - Hyperlipidemia , unspecified Category: Medical (11) HTN (hypertension) Current Visit: Yes Status: Chronic Code(s): I10 - Essential (primary) hypertension Qualifiers: Hypertension type: essential hypertension Qualified Code(s): I10 - Essential (primary) hypertension Category: Medical (12) Hypercholesterolemia Current Visit: Yes Status: Chronic Code(s): E78.00 - Pure hypercholesterolemia, unspecified Category: Medical (13) H/O aortic valve replacement Current Visit: Yes Status: Chronic Onset Date: 07/20/15 Code(s): Z95.2 - Presence of prosthetic heart valve Category: Medical
[2017-08-17 06:35] LABS: BASOPHILS # (AUTO) 0.02 10*3/UL; BASOPHILS % (AUTO) 0.2 % (0-1); EOSINOPHILS # (AUTO) 0 10*3/UL; EOSINOPHILS % (AUTO) 0 % (0-8); Hematocrit [HCT] 30.3 % (37.0-47.0); Hemoglobin [HGB] 9.1 g/dL (12.0-16.0); LYMPHOCYTES # (AUTO) 0.54 10*3/uL; MEAN CORPUSCULAR HEMOGLOBIN 23.6 PG (27-31); MEAN CORPUSCULAR VOLUME 78.5 FL (81-99); MONOCYTES # (AUTO) 0.76 10*3/UL (0.3-0.8); MONOCYTES % (AUTO) 6.1 % (5-15); NEUTROPHILS # (AUTO) 11.21 10*3/UL; NEUTROPHILS % (AUTO) 89.2 % (50-80); RED BLOOD COUNT 3.86 10^6/uL (4.20-5.40)
[2017-08-17 06:36] VITALS: O2SAT 94
[2017-08-17 06:38] VITALS: TEMP 98.1
[2017-08-17 06:39] LABS: VENOUS PH 7.4 (7.32-7.42)
[2017-08-17 06:41] LABS: BLOOD UREA NITROGEN 27 mg/dL (7-22); MAGNESIUM 2.2 mg/dL (1.6-2.4)
[2017-08-17 06:45] LABS: PLATELET MORPHOLOGY COMMENT NORMAL MORPHOLOGY (NORM); RBC MORPHOLOGY COMMENT SEE COMMENTS (NORM); WBC MORPHOLOGY COMMENT NORMAL MORPHOLOGY (NORM)
[2017-08-17] MEDS ORDERED: IPRATROPIUM/ALBUTEROL SULFATE 3 ML NEB NEB SCH (07:00)
[2017-08-17] MEDS ORDERED: HEPARIN 500 UNIT/5 ML SYRINGE FOR CENTRAL LINE IVP PRN (07:30)
[2017-08-17 07:43] VITALS: RESP 14
[2017-08-17] MEDS ORDERED: LOSARTAN 25 MG TABLET PO SCH ×2 (09:00)
[2017-08-17] MEDS ORDERED: VENLAFAXINE XR 75 MG CAP PO SCH ×2 (09:00)
[2017-08-17] MEDS ORDERED: [UNRECOGNIZED DRUG - OTHER] SUBCUT SCH (09:00)
[2017-08-17] MEDS ORDERED: CHOLECALCIFEROL 1000 IU TABLET PO SCH (09:00)
[2017-08-17] MEDS ORDERED: ASPIRIN EC 81 MG TABLET PO SCH ×2 (09:00)
[2017-08-17] MEDS ORDERED: METOPROLOL SUCCINATE 50 MG SR 24H TABLET PO SCH ×2 (09:00)
[2017-08-17] MEDS ORDERED: Potassium Chloride Tab 10 MEQ TAB PO SCH (09:00)
[2017-08-17] MEDS ORDERED: [UNRECOGNIZED DRUG - OTHER] SUBCUT SCH (09:00)
[2017-08-17] MEDS ORDERED: Oxybutynin ER Tab 5 MG TAB PO SCH (09:00)
[2017-08-17] MEDS ORDERED: AmLODIPine Tab 5 MG TABLET PO SCH (09:00)
[2017-08-17 09:21] VITALS: BP 127/63
[2017-08-17] MEDS ORDERED: metroNIDAZOLE 500mg (Premix) 500 MG/100 ML BAG IV SCH (10:00)
[2017-08-17] MEDS ORDERED: cefTRIAXone Inj 2 GM in Sodium Chloride 0.9% 100 ML IV SCH (14:00)
[2017-08-17] MEDS ORDERED: Pravastatin 80mg Tab PO SCH ×2 (21:00)
== END 2017-08-17 08:37 | disposition short-term general hospital (02) | DRG 204 ==
LOC: ER 07:31 → MED/SURG 13:32 → ICU 08-17 04:32
PROVIDERS: ADMIT Family Medicine; ATTEND Family Medicine

== ENCOUNTER 2017-12-01 19:22 | Inpatient (IN) ==
[2017-12-01 20:18] LABS: BASOPHILS % (AUTO) 0.4 % (0-1); EOSINOPHILS % (AUTO) 2.8 % (0-8); Hematocrit [HCT] 22.4 % (37.0-47.0); MEAN CORPUSCULAR HEMOGLOBIN 25.7 PG (27-31); MEAN CORPUSCULAR HGB CONC 31.3 g/dL (33-37); MEAN CORPUSCULAR VOLUME 82.4 FL (81-99); MEAN PLATELET VOLUME 10.8 FL (7.4-12.2); MONOCYTES % (AUTO) 5.7 % (5-15); NEUTROPHILS % (AUTO) 73.9 % (50-80); RED BLOOD COUNT 2.72 10^6/uL (4.20-5.40)
[2017-12-01 20:19] LABS: BASOPHILS # (AUTO) 0.04 10*3/UL; EOSINOPHILS # (AUTO) 0.26 10*3/UL; LYMPHOCYTES # (AUTO) 1.56 10*3/uL; MONOCYTES # (AUTO) 0.53 10*3/UL (0.3-0.8); PLATELET MORPHOLOGY COMMENT NORMAL MORPHOLOGY (NORM); RBC MORPHOLOGY COMMENT NORMAL MORPHOLOGY (NORM); WBC MORPHOLOGY COMMENT NORMAL MORPHOLOGY (NORM)
[2017-12-01 20:25] LABS: BLOOD UREA NITROGEN 30 mg/dL (7-22); SERUM ALBUMIN 3.8 g/dL (3.5-4.8)
[2017-12-01] MEDS ORDERED: Sodium Chloride 0.9% 1,000 ML PRIMARY IV SCH (21:02)
[2017-12-01] MEDS ORDERED: ACETAMINOPHEN 325 MG TABLET PO PRN (21:59)
[2017-12-01] MEDS ORDERED: DOCUSATE 100 MG CAPSULE PO PRN (21:59)
[2017-12-01] MEDS ORDERED: CALCIUM CARBONATE 500 MG (TUMS) CHEWABLE TABLET PO PRN (21:59)
[2017-12-01] MEDS ORDERED: LIDOCAINE W/ SODIUM BICARB 0.5 ML SYR SUBD PRN (21:59)
[2017-12-01] MEDS ORDERED: NORMAL SALINE 10 ML SYRINGE FLUSH IVP PRN (21:59)
[2017-12-01] MEDS ORDERED: ONDANSETRON 4 MG/2 ML VIAL IVP PRN (21:59)
[2017-12-01] MEDS ORDERED: Pantoprazole Inj 80 MG in Normal Saline Flush 10 ML IVP ONE (22:01)
[2017-12-01] MEDS ORDERED: ALBUTEROL SULFATE 8.5 GM HFA INHALER INH PRN (22:02)
[2017-12-01] MEDS ORDERED: Pravastatin 80mg Tab PO SCH (22:15)
--- NOTE | 2017-12-01 22:26 | PDOC ---
HPI - History of Present Illness Date of Service: 12/01/17 Time of Service: 22:00 Chief Complaint: Fatigue of 2 days' duration, melena today. History of Present Illness: This is a 72 years old female with medical history significant for history of coronary artery disease with previous CABG, aortic valve replacement with mechanical valve on anticoagulation, history of peripheral vascular disease with previous endarterectomies, history also of aortic aneurysm repair, hypothyroidism, hypertension, GERD with history of esophagitis, depression, hypercholesterolemia, history of previous stroke, history of previous rectus sheath hematoma, admission back in August for COPD exacerbation and influenza was transferred to [place] after respiratory failure who presented to the hospital with history of fatigue of 2 days' duration, the family noticed pallor today so they called the office of Dr. Real and she had a blood test earlier today hemoglobin was low so they took her to the ER and she did report the one episode of melena today. Evaluation did show positive occult stool and hemoglobin of 7 she was started on 1 unit of blood and was admitted. The patient is denying abdominal pain, nausea, vomiting. No shortness of breath. Past Medical History Medical History: 1. GI bleed probably secondary to AV malformations, status post push enteroscopy results from [facility] which was negative. 2. Hypertension. 3. Hypothyroidism. 4. Coronary artery disease status post CABG. 5. Aortic valve, mechanical. 6. Long-term anticoagulation due to mechanical valve. 7. Severe peripheral arterial disease. 8. Vitamin D deficiency. 9. Osteoporosis. 10. GERD with history of esophagitis. 11. Depression, well controlled. 12. Hypercholesterolemia. 13. History of stroke , presumed related to cardioembolic source when off anticoagulation waiting for a left carotid stent. 14. Respiratory failure secondary to pneumonia and Flu in 08/2017 needed intubation was tranferred to [facility]. 15. History of rectus sheath hematoma August 2017 was transferred to [facility] needed embolization. Surgical History: 1. Multiple colonoscopies and EGDs. 2. Push enteroscopy done in [place]. 3. Angioplasty of arteries and veins in lower extremities. 4. CABG in 2003. 5. Mechanical aortic valve in 2003. 6. Right arm surgeries. 7. Endovascular abdominal aortic aneurysm repair. 8. Right carotid endarterectomy. 9. Left carotid stent placement. 10. Total knee replacement. 11. Appendectomy. 12. Hysterectomy and bilateral salpingo- oophorectomy. 13. Tubal ligation. 14. Iliac aneurysm repair. 15. Cataract surgery Pertinent Family History: She states she does not know her mother's history she did not really live with her. Her father of coronary artery disease complications and dementia. Past Social History: Quit smoking years ago. Lives alone, , has children that are described as healthy. Does not drink alcohol. Tobacco Use: Former Smoker In the Past 12 Months, Have Used or Abuse Any of the Following Substance: None Alcohol Use: None Medication / Allergies Home Medications: Home Medications 3 Medication Instructions Recorded Confirmed Type Dalteparin Sodium,Porcine [Fragmin] 0.72 ml SUBCUT QD #30 box 03/17/17 12/02/17 Rx Hydrocodone/Acetaminophen 1 tab PO Q6H PRN #30 tab 04/14/17 12/02/17 History [Hydrocodone-Acetamin 7.5-325] aspirin 81 mg tablet,delayed 81 mg PO QDAY tab 08/05/17 12/02/17 History release calcium carbonate 500 mg(1,250 1 tab PO BID tab 08/05/17 12/02/17 History mg)-vitamin D3 400 unit chewable tablet cholecalciferol (vitamin D3) 2,000 2,000 unit PO QDAY cap 08/05/17 12/02/17 History unit capsule denosumab 60 mg/mL subcutaneous 60 mg SUBCUT [id number] #1 ml 08/05/17 12/02/17 History syringe levothyroxine 50 mcg tablet 50 mcg PO QAM #90 tab 08/05/17 12/02/17 Rx metoprolol succinate ER 50 mg 50 mg PO QDAY #90 tab 08/05/17 12/02/17 Rx tablet,extended release 24 hr mirtazapine 15 mg tablet 7.5 mg PO QHS #45 tab 08/05/17 12/02/17 Rx oxybutynin chloride ER 5 mg 5 mg PO QDAY #90 tab 08/05/17 12/02/17 Rx tablet,extended release 24 hr pravastatin 80 mg tablet 80 mg PO QDAY #90 tab 08/05/17 12/02/17 Rx venlafaxine ER 150 mg 150 mg PO QDAY #90 cap 08/05/17 12/02/17 Rx capsule,extended release 24 hr dexlansoprazole 60 mg 60 mg PO BID #180 cap 09/01/17 12/02/17 Rx capsule,biphase delayed release albuterol sulfate 2.5 mg/3 mL 2.5 mg INH QID #90 ml 09/03/17 12/02/17 Rx (0.083 %) solution for nebulization albuterol sulfate HFA 90 2 puff INH Q4H PRN g 09/03/17 12/02/17 History mcg/actuation aerosol inhaler furosemide 40 mg tablet 40 mg PO QDAY #30 tab 09/03/17 12/02/17 Rx ipratropium-albuterol 0.5 mg-3 3 ml INH Q4H PRN ml 09/03/17 12/02/17 History mg(2.5 mg base)/3 mL nebulization soln warfarin 2 mg tablet 2 mg PO QDAY 09/03/17 12/02/17 History amlodipine 10 mg tablet 10 mg PO QDAY #90 tab 10/15/17 12/02/17 Rx losartan 50 mg tablet 50 mg PO QDAY #90 tab 10/15/17 12/02/17 Rx potassium chloride ER 10 mEq 20 meq PO QDAY #60 cap 10/15/17 12/02/17 Rx capsule,extended release Allergies/Adverse Reactions: Allergies 3 Allergy/AdvReac Type Severity Reaction Status Date / Time kiwi Allergy Intermediate SWELLING Verified 12/02/17 05:04 No Known Drug Allergies Allergy none Verified 12/02/17 05:04 avacado Allergy Intermediate VOMITING Uncoded 12/02/17 05:04 cucumber Allergy Intermediate VOMITING Uncoded 12/02/17 05:04 Review of Systems - Review of Systems All Systems: Reviewed & No Additional Complaints Except as Stated Exam - General General Appearance: No Acute Distress, Cooperative, Thin - Head Head Exam: Normal Inspection, Atraumatic - Eye Eye Exam: POSITIVE: Normal Appearance - ENT ENT Exam: POSITIVE: Normal Exam - Neck Neck Exam: Normal Inspection - Respiratory Respiratory Exam: POSITIVE: Clear to Auscultation - Bilaterally - Cardiovascular Additional Cardiovascular Details: Prosthetic valve sounds. - GI/Abdominal GI/Abdominal Exam: POSITIVE: Normal Bowel Sounds, Non Tender, Non Distended, Soft, No Organomegaly - Rectal Rectal Exam: POSITIVE: Deferred - External Exam: POSITIVE: Deferred - Extremities Extremities Exam: POSITIVE: Normal Inspection - Back Back Exam: POSITIVE: Normal Inspection - Neurological Neurological Exam: POSITIVE: Alert, Oriented x 3, No Facial Droop, Moves All Extremities Equally Additional Neurological Exam Details: Some dysarthria noted - Psychiatric Psychiatric Exam: POSITIVE: Normal Affect - Integumentary Integumentary Exam: POSITIVE: Pallor Results - Labs CBC and BMP: 12/02/17 04:11 12/02/17 04:11 Assessment and Plan - Patient Problems (1) Gastrointestinal hemorrhage with melena Current Visit: No Status: Acute Onset Date: 01/15/17 Comment: She was started the first unit of blood will give another unit of blood. We'll give her IV Lasix in between. Will start her on Protonix. Will repeat her labs in the morning and then decide about further blood transfusion. We'll hold her Coumadin she did not take her Coumadin today will repeat her INR tomorrow. Since she is hemodynamically stable I think we'll hold off on reversing the effect of the Coumadin. I'll speak with the chemist tomorrow and see their recommendation depending on her INR whether we need to reverse the effect of Coumadin or start heparin drip if it is low. I did speak with the Dr. Romero about her, he will evaluate in the morning. Code(s): K92.1 - Melena (2) Depressive disorder Current Visit: No Status: Chronic Onset Date: 04/29/13 Comment: Continue previous medications Code(s): F32.9 - Major depressive disorder, single episode, unspecified (3) Hyperlipidemia Current Visit: No Status: Chronic Onset Date: 04/29/13 Comment: Same med Code(s): E78.5 - Hyperlipidemia, unspecified Qualifiers: Hyperlipidemia type: unspecified Qualified Code(s): E78.5 - Hyperlipidemia , unspecified (4) Benign hypertension Current Visit: No Status: Chronic Comment: We'll continue with metoprolol will see what's her blood pressure tomorrow and then will decide about the Norvasc and losartan. (5) Mechanical heart valve present Current Visit: No Status: Chronic Onset Date: 04/29/13 Comment: As I said we'll hold the Coumadin tonight, repeat her INR tomorrow and will discuss with cardiology tomorrow. Code(s): Z95.2 - Presence of prosthetic heart valve
[2017-12-01] MEDS ORDERED: FUROSEMIDE 10 MG/1 ML - 2 ML VIAL IVP ONE (22:31)
[2017-12-01] MEDS ORDERED: Sodium Chloride 0.9% 2,000 ML ONE (23:51)
[2017-12-01] MEDS ORDERED: Sodium Chloride 0.9% 100 ML IV ONE (23:53)
--- NOTE | 2017-12-02 04:23 | PDOC ---
GI Bleed/Rectal Complaint HPI - General Chief Complaint: GI Bleed / Rectal Pain Stated Complaint: LOW H/H AT LABS/ DARK STOOLS Date Seen by Provider: 12/01/17 Time Seen by Provider: 18:40 Source: POSITIVE: Patient Exam Limitations: POSITIVE: No limitations Nurse's Notes Reviewed & Considered: Yes - History of Present Illness Initial Comments: The patient is a 72-year-old female who is brought to the emergency room by her daughter. Patient states that this morning she noticed that her stool was darker than normal. Patient states she has a history of recurring gastrointestinal bleeding and underwent an interventional radiologist procedure in August for this problem. She states that she has a 2 year history of similar episodes. Patient is on Coumadin, 2 mg on and 4 mg on the other days of the week for a [place] cardiac valve, aortic. Patient has not had any dyspepsia. No vomiting. She has become very pale. She has required blood transfusions in the past. No abdominal pain. No chest pain. No syncope or near-syncope. Body Location Affected: REPORTS: Abdomen, Other (Dark stool) Timing: REPORTS: Abrupt Duration: <24 hours Severity: Moderate Quality: REPORTS: Other (Patient denies any pain anywhere) Context: REPORTS: None Associated Symptoms: REPORTS: Black Stools Last BM (Date): 12/01/17 Number of Episodes of Diarrhea (in past 24hrs): 1 Similar Symptoms Previously: Yes Recent Care Received: REPORTS: Recently Seen (Patient states that she contacted her primary care provider today about her dark stool who sent her to the lab for a CBC. However, the patient's primary care provider did not contact her with results.) Any Prior Injuries Related to Current Complaint?: No - Patient Home Medications Home Medications: Home Medications Dalteparin Sodium,Porcine [Fragmin] 0.72 ml SUBCUT QD #30 box 03/17/17 Hydrocodone/Acetaminophen [Hydrocodone-Acetamin 7.5-325] 1 tab PO Q6H PRN #30 tab 04/14/17 aspirin 81 mg tablet,delayed release 81 mg PO QDAY tab 08/05/17 calcium carbonate 500 mg(1,250 mg)-vitamin D3 400 unit chewable tablet 1 tab PO BID tab 08/05/17 cholecalciferol (vitamin D3) 2,000 unit capsule 2,000 unit PO QDAY cap denosumab 60 mg/mL subcutaneous syringe 60 mg SUBCUT [id number] #1 ml 08/05/17 levothyroxine 50 mcg tablet 50 mcg PO QAM #90 tab 08/05/17 metoprolol succinate ER 50 mg tablet,extended release 24 hr 50 mg PO QDAY #90 tab 08/05/17 mirtazapine 15 mg tablet 7.5 mg PO QHS #45 tab 08/05/17 oxybutynin chloride ER 5 mg tablet,extended release 24 hr 5 mg PO QDAY #90 tab 08/05/17 pravastatin 80 mg tablet 80 mg PO QDAY #90 tab 08/05/17 venlafaxine ER 150 mg capsule,extended release 24 hr 150 mg PO QDAY #90 cap dexlansoprazole 60 mg capsule,biphase delayed release 60 mg PO BID #180 cap albuterol sulfate 2.5 mg/3 mL (0.083 %) solution for nebulization 2.5 mg INH QID #90 ml 09/03/17 albuterol sulfate HFA 90 mcg/actuation aerosol inhaler 2 puff INH Q4H PRN g furosemide 40 mg tablet 40 mg PO QDAY #30 tab 09/03/17 ipratropium-albuterol 0.5 mg-3 mg(2.5 mg base)/3 mL nebulization soln 3 ml INH Q4H PRN ml 09/03/17 warfarin 2 mg tablet 2 mg PO QDAY 09/03/17 amlodipine 10 mg tablet 10 mg PO QDAY #90 tab 10/15/17 losartan 50 mg tablet 50 mg PO QDAY #90 tab 10/15/17 potassium chloride ER 10 mEq capsule,extended release 20 meq PO QDAY #60 cap 07/23 - Patient Allergies Allergies/Adverse Reactions: Allergies 3 Allergy/AdvReac Type Severity Reaction Status Date / Time kiwi Allergy Intermediate SWELLING Verified 12/01/17 19:24 No Known Drug Allergies Allergy none Verified 12/01/17 19:24 avacado Allergy Intermediate VOMITING Uncoded 12/01/17 19:24 cucumber Allergy Intermediate VOMITING Uncoded 12/01/17 19:24 Past Medical History - heen HEENT History: Hard of Hearing Additional HEENT History: 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 Cardiovascular History: Hypertension, Previous RI, Hyperlipidemia Additional Cardiovasular History: stent Respiratory History: Denies History, Pneumonia Additional Respiratory History: influenza a 08/18/2017 Gastrointestinal History: GERD, GI Bleed Genitourinary History: Denies History Endocrine History: Hypothyroidism Musculoskeletal History: Osteoporosis, Back Pain Prosthesis or Implant: No Neurological History: CVA Additional Neurological History: HX OF STROKE- JANUARY 2017 Blood Disorders: Anemia Psychiatric History: Depression History of Sexually Transmitted Diseases: No Cancer History: Denies History In Past Year Been Physically Harmed or Verbally Threatened: No History of MDRO: No History of Other Communicable Diseases: No Tobacco Use: Former Smoker Alcohol Use: None In the Past 12 Months, Have Used or Abuse Any Substance: None Previous Surgical History: Yes Type / Date of Surgery: appendectomy. tubular . hysterectomy. R TKA. back surgeries. STENT PLACEMENT- 2. open heart- AORTIC VALVE REPLACEMENT. AAA REPAIRED/STENTED. 4 VESSEL CABG. CAROTIDS DONE X2. EVADED HEART Anesthesia Reactions: No Malignant Hyperthermia: No Family History of Malignant Hyperthermia: No Significant Family History: Cancer Past Medical History Reviewed: Reviewed - No Changes ROS - Limitations ROS Limitations: No Limitations Constitution: REPORTS: Denies Symptoms Cardiovascular: REPORTS: Denies Cardiac Symptoms Respiratory: REPORTS: Denies Resp Symptoms Neurological: REPORTS: Denies Neuro Symptoms Gastrointestinal: REPORTS: Black Stools Endocrine: REPORTS: Denies Symptoms Musculoskeletal: REPORTS: Denies MS Symptoms Genitourinary: REPORTS: Denies Symptoms Eyes: REPORTS: Denies Symptoms ENT: REPORTS: Denies Symptoms Skin: REPORTS: Denies Skin Symptoms Lympathic: REPORTS: Denies Lympathic Symptoms Immunologic: POSITIVE: Denies Symptoms Psychiatric: POSITIVE: Denies Psych Symptoms GI Bleed / Rectal Complaint PE - General Appearance General Appearance: POSITIVE: Alert, Cooperative, No Acute Distress, No Evidence of Trauma, Other (Very pale) - HEENT HEENT: POSITIVE: Head Inspection Nml, Eyes Inspection Nml, Ears Inspection Nml, Nose Inspection Nml, Oral/Dental Inspect. Nml, Pharynx Inspect. Nml, PERRL, EOMI - Neck Neck: POSITIVE: Normal Inspection, No Apparent Injury - Respiratory Respiratory: POSITIVE: No Respiratory Distress, Breath Sounds Normal, Chest Non- Tender - Cardiovascular Cardiovascular: POSITIVE: Regular Rate and Rhythm, Heart Sounds Normal, Equal Pulses, Strong Pulses Peripheral Pulses: Radial (R): 2+, Radial (L): 2+ - Abdomen Abdomen: Soft: (All Quadrants), Normal Bowel Sounds: (All Quadrants), Denies Tenderness: (All Quadrants), No Splenomegaly: (All Quadrants), No Hepatomegaly: (All Quadrants), No Guarding: (All Quadrants), No Rebound: (All Quadrants), No Palpable Pulse: (All Quadrants), No Palpabale Mass: (All Quadrants), No Distention: (All Quadrants), No Rigidity: (All Quadrants) - Genital / Rectal Rectal: POSITIVE: Non-Tender, Black Stool, Heme Positive Stool - Skin Skin: POSITIVE: Color Normal, No Rash, Warm, Dry, Other (. 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 Vital signs remained normal. Diagnosis of gastrointestinal bleeding discussed with patient and patient's daughter. Case discussed with Dr. Romero, surgeon and Dr. Ortega, hospitalist, and patient is admitted for further evaluation and treatment. 2 units of packed red blood cells ordered transfused. Status: POSITIVE: Unchanged, Re-Examined - Consult Consult (If Yes, Name of Consulting MD & Time Called): Yes (Dr. Romero and Dr. Ortega, 2100) Consulting MD will see pt:: POSITIVE: [facility] Admit Counseled: POSITIVE: Patient, Family, RE: Lab Results, RE: DX, RE: Need for F/U Patient Care Time - Estimated PCT Patient Care Time (In Minutes): 60 Vital Signs - Recent Vital Signs Vital Signs: Vital Signs (Last 8 hours) Temp Pulse Pulse Resp BP BP Pulse Ox 12/02/17 03:15 73 15 159/76 93 12/02/17 02:00 73 15 151/65 93 12/02/17 01:30 98.7 F 72 15 178/78 95 12/02/17 01:00 73 15 178/80 97 12/02/17 00:45 78 77 15 184/80 184/80 95 12/02/17 00:41 95 12/02/17 00:30 74 16 186/81 95 12/02/17 00:00 74 16 168/78 97 12/01/17 23:48 98.4 F 72 14 178/78 96 12/01/17 23:45 98.1 F 78 16 158/84 97 12/01/17 23:16 97.9 F 84 20 161/72 94 12/01/17 23:03 97.9 F 91 18 131/78 93 12/01/17 21:05 98.0 F 82 18 118/68 93 12/01/17 21:02 97.9 F 83 20 139/79 92 12/01/17 21:01 97.9 F 85 20 137/71 93 - VS Reviewed Vital Signs Reviewed: Yes Discharge Clinical Impression: Gastrointestinal hemorrhage Discharge Disposition: Admit to Inpatient Condition: Fair Date Decision to Admit to Inpatient: 12/02/17 Time Decision to Admit to Inpatient: 20:45
[2017-12-02] MEDS ORDERED: Sodium Chloride 0.9% 1,000 ML PRIMARY IV SCH ×2 (04:30→19:36)
[2017-12-02 05:17] LABS: BASOPHILS # (AUTO) 0.03 10*3/UL; BASOPHILS % (AUTO) 0.3 % (0-1); EOSINOPHILS # (AUTO) 0.26 10*3/UL; EOSINOPHILS % (AUTO) 2.7 % (0-8); Hematocrit [HCT] 28.8 % (37.0-47.0); Hemoglobin [HGB] 9.3 g/dL (12.0-16.0); LYMPHOCYTES # (AUTO) 1.47 10*3/uL; MEAN CORPUSCULAR HEMOGLOBIN 26.3 PG (27-31); MEAN CORPUSCULAR HGB CONC 32.3 g/dL (33-37); MEAN CORPUSCULAR VOLUME 81.6 FL (81-99); MEAN PLATELET VOLUME 11.1 FL (7.4-12.2); MONOCYTES # (AUTO) 0.68 10*3/UL (0.3-0.8); NEUTROPHILS % (AUTO) 74.7 % (50-80); RED BLOOD COUNT 3.53 10^6/uL (4.20-5.40)
[2017-12-02 05:22] LABS: PLATELET MORPHOLOGY COMMENT NORMAL MORPHOLOGY (NORM); RBC MORPHOLOGY COMMENT NORMAL MORPHOLOGY (NORM); WBC MORPHOLOGY COMMENT NORMAL MORPHOLOGY (NORM)
[2017-12-02] MEDS ORDERED: LEVOTHYROXINE 50 MCG TABLET PO SCH (05:30)
[2017-12-02] MEDS ORDERED: LEVOTHYROXINE 25 MCG TABLET PO ONE (05:33)
[2017-12-02 05:55] LABS: BLOOD UREA NITROGEN 27 mg/dL (7-22); BUN/CREATININE RATIO 24.54 (6-20)
[2017-12-02] MEDS ORDERED: POTASSIUM CHLORIDE 20 MEQ TAB PO SCH (07:00)
[2017-12-02] MEDS ORDERED: FUROSEMIDE 40 MG TABLET PO SCH ×2 (07:00→09:00)
[2017-12-02] MEDS ORDERED: METOPROLOL SUCCINATE 50 MG SR 24H TABLET PO SCH (09:00)
[2017-12-02] MEDS ORDERED: LOSARTAN 50 MG TABLET PO SCH (09:00)
[2017-12-02] MEDS ORDERED: VENLAFAXINE XR 75 MG CAP PO SCH (09:00)
[2017-12-02] MEDS ORDERED: Oxybutynin ER Tab 5 MG TAB PO SCH (09:00)
--- NOTE | 2017-12-02 09:26 | PDOC(PROG) ---
Date and Time of Service: 12/02/2017 9:15 AM Interval History: Subjective Feels better. Denying abdominal pain. No vomiting. She did have one more bowel movement which is still black. No shortness of breath. Objective : Data - Labs CBC and BMP: 12/02/17 04:11 12/02/17 04:11 Objective : Exam - General General Appearance: No Acute Distress, Cooperative - Head Head Exam: Normal Inspection - Eye Eye Exam: Normal Appearance - ENT ENT Exam: Normal Exam - Neck Neck Exam: Normal Inspection - Respiratory Respiratory Exam: Clear to Auscultation - Bilaterally - Cardiovascular Cardiovascular Exam: RRR Additional Cardiovascular Details: Prosthetic heart sound present - GI/Abdominal GI/Abdominal Exam: Normal Bowel Sounds, Non Tender, Non Distended, Soft, No Organomegaly - Rectal Rectal Exam: Deferred - External Exam: Deferred - Extremities Extremities Exam: Normal Inspection - Back Back Exam: Normal Inspection - Neurological Neurological Exam: Alert, Oriented x 3, CN II-XII Intact, No Facial Droop, Moves All Extremities Equally - Psychiatric Psychiatric Exam: Normal Affect - Integumentary Integumentary Exam: Normal Color Assessment and Plan - Patient Problems (1) Gastrointestinal hemorrhage with melena Current Visit: No Status: Acute Onset Date: 01/15/17 Comment: Hemoglobin is 9.3. I think will repeat it later on today and decide about further transfusion. Hemodynamically she is stable. Actually her blood pressure is high. Code(s): K92.1 - Melena (2) Depressive disorder Current Visit: No Status: Chronic Onset Date: 04/29/13 Comment: Same medications Code(s): F32.9 - Major depressive disorder, single episode, unspecified (3) Hyperlipidemia Current Visit: No Status: Chronic Onset Date: 04/29/13 Comment: Same med Code(s): E78.5 - Hyperlipidemia, unspecified Qualifiers: Hyperlipidemia type: unspecified Qualified Code(s): E78.5 - Hyperlipidemia , unspecified (4) Benign hypertension Current Visit: No Status: Chronic Comment: I think we can restart her losartan and amlodipine. As her blood pressure is high (5) Mechanical heart valve present Current Visit: No Status: Chronic Onset Date: 04/29/13 Comment: Her INR is 2.07 today. I did speak with the fire extinguisher repairer inspector from [place] Dr. carmen who suggested not to give her vitamin K. Consider bridging her with heparin after the procedure. She needs to be on anticoagulants after the procedure with Coumadin. Code(s): Z95.2 - Presence of prosthetic heart valve (6) Hypokalemia Current Visit: Yes Status: Acute Comment: Potassium is low will give her some potassium Code(s): E87.6 - Hypokalemia
[2017-12-02] MEDS ORDERED: DOCUSATE 100 MG CAPSULE PO PRN (10:07)
[2017-12-02] MEDS ORDERED: LIDOCAINE W/ SODIUM BICARB 0.5 ML SYR SUBD PRN ×2 (10:07→12:38)
[2017-12-02] MEDS ORDERED: ALBUTEROL SULFATE 8.5 GM HFA INHALER INH PRN (10:07)
[2017-12-02] MEDS ORDERED: CALCIUM CARBONATE 500 MG (TUMS) CHEWABLE TABLET PO PRN (10:07)
[2017-12-02] MEDS ORDERED: ONDANSETRON 4 MG/2 ML VIAL IVP PRN (10:07)
[2017-12-02] MEDS ORDERED: ACETAMINOPHEN 325 MG TABLET PO PRN (10:07)
[2017-12-02] MEDS ORDERED: NORMAL SALINE 10 ML SYRINGE FLUSH IVP PRN ×2 (10:07→12:38)
--- NOTE | 2017-12-02 12:21 | CONSULT ---
Consult Note - Consult Consult Date: 12/02/17 Reason for Consult: PreOp Consulation : General Surgery Requesting Physician: Dr. Burton, Dr. Ortega. Primary Care Provider: Km Real MD - History of Present Illness History of Present Illness: Patient is a 72-year-old female I'm asked to see for a GI bleed. Patient has a very complicated history. In January she had a GI bleed and was treated in [place]. She had an upper and lower endoscopy and no bleeding site was identified. She was transferred to [place]. She had a tagged red blood cell scan done which showed bleeding in the duodenum. She had a push endoscopy and nothing was found. Her colonoscopy showed diverticulosis. Her upper endoscopy showed esophagitis. Patient is on a proton pump inhibitor which she takes twice a day. She says she was told she may have intermittent episodes of bleeding. She is chronically anticoagulated because of an aortic valve. She has had 2 episodes of rectus sheath hematomas the latest requiring embolization. That was in August 2017. She had done relatively well recently. In September her hemoglobin and hematocrit were 10 and 33 respectively. In October they were 12.2 and 38.5 respectively. She reports that a week or 2 ago she had a change in her bowel movements. The stools are softer. She reports for the last several days she has felt weak and tired. She looked pale to the family. They called Dr. Real. A hemoglobin was done and was 7.5. She was sent to the emergency room where admitting hemoglobin and hematocrit were 7 and 22.4. Patient denies any maroon stool or bright red blood per rectum. She had a black semi-formed bowel movement yesterday. She had a softer black bowel movement today which was Hemoccult positive. Patient reports she had the worst heartburn of her life on Friday. She had acid brash on Friday. She has a known hiatal hernia. She has a known history of esophagitis despite proton pump inhibitor therapy. She denies hematemesis. Her admitting INR was 2.2. Today her INR is 2.07. Review of Systems - Gastrointestinal Gastrointestinal / Abdominal: REPORTS: Heartburn, Melena, See HPI Past Medical History Medical History: 1. GI bleed probably secondary to AV malformations, status post push enteroscopy results from [facility] which was negative. 2. Hypertension. 3. Hypothyroidism. 4. Coronary artery disease status post CABG. 5. Aortic valve, mechanical. 6. Long-term anticoagulation due to mechanical valve. 7. Severe peripheral arterial disease. 8. Vitamin D deficiency. 9. Osteoporosis. 10. GERD with history of esophagitis. 11. Depression, well controlled. 12. Hypercholesterolemia. 13. History of stroke , presumed related to cardioembolic source when off anticoagulation waiting for a left carotid stent. 14. Respiratory failure secondary to pneumonia and Flu in 08/2017 needed intubation was tranferred to [facility]. 15. History of rectus sheath hematoma August 2017 was transferred to [facility] needed embolization. Surgical History: 1. Multiple colonoscopies and EGDs. 2. Push enteroscopy done in [place]. 3. Angioplasty of arteries and veins in lower extremities. 4. CABG in 2003. 5. Mechanical aortic valve in 2003. 6. Right arm surgeries. 7. Endovascular abdominal aortic aneurysm repair. 8. Right carotid endarterectomy. 9. Left carotid stent placement. 10. Total knee replacement. 11. Appendectomy. 12. Hysterectomy and bilateral salpingo- oophorectomy. 13. Tubal ligation. 14. Iliac aneurysm repair. 15. Cataract surgery. 16. History of ectopic . 17. Embolization of rectus sheath bleed. Pertinent Family History: She states she does not know her mother's history she did not really live with her. Her father of coronary artery disease complications and dementia. Past Social History: Quit smoking years ago. Lives alone, , has children that are described as healthy. Does not drink alcohol. Tobacco Use: Former Smoker In the Past 12 Months, Have Used or Abuse Any of the Following Substance: None Alcohol Use: None Medication / Allergies Home Medications: Home Medications 3 Medication Instructions Recorded Confirmed Type Dalteparin Sodium,Porcine [Fragmin] 0.72 ml SUBCUT QD #30 box 03/17/17 12/02/17 Rx Hydrocodone/Acetaminophen 1 tab PO Q6H PRN #30 tab 04/14/17 12/02/17 History [Hydrocodone-Acetamin 7.5-325] aspirin 81 mg tablet,delayed 81 mg PO QDAY tab 08/05/17 12/02/17 History release calcium carbonate 500 mg(1,250 1 tab PO BID tab 08/05/17 12/02/17 History mg)-vitamin D3 400 unit chewable tablet cholecalciferol (vitamin D3) 2,000 2,000 unit PO QDAY cap 08/05/17 12/02/17 History unit capsule denosumab 60 mg/mL subcutaneous 60 mg SUBCUT [id number] #1 ml 08/05/17 12/02/17 History syringe levothyroxine 50 mcg tablet 50 mcg PO QAM #90 tab 08/05/17 12/02/17 Rx metoprolol succinate ER 50 mg 50 mg PO QDAY #90 tab 08/05/17 12/02/17 Rx tablet,extended release 24 hr mirtazapine 15 mg tablet 7.5 mg PO QHS #45 tab 08/05/17 12/02/17 Rx oxybutynin chloride ER 5 mg 5 mg PO QDAY #90 tab 08/05/17 12/02/17 Rx tablet,extended release 24 hr pravastatin 80 mg tablet 80 mg PO QDAY #90 tab 08/05/17 12/02/17 Rx venlafaxine ER 150 mg 150 mg PO QDAY #90 cap 08/05/17 12/02/17 Rx capsule,extended release 24 hr dexlansoprazole 60 mg 60 mg PO BID #180 cap 09/01/17 12/02/17 Rx capsule,biphase delayed release albuterol sulfate 2.5 mg/3 mL 2.5 mg INH QID #90 ml 09/03/17 12/02/17 Rx (0.083 %) solution for nebulization albuterol sulfate HFA 90 2 puff INH Q4H PRN g 09/03/17 12/02/17 History mcg/actuation aerosol inhaler furosemide 40 mg tablet 40 mg PO QDAY #30 tab 09/03/17 12/02/17 Rx ipratropium-albuterol 0.5 mg-3 3 ml INH Q4H PRN ml 09/03/17 12/02/17 History mg(2.5 mg base)/3 mL nebulization soln warfarin 2 mg tablet 2 mg PO QDAY 09/03/17 12/02/17 History amlodipine 10 mg tablet 10 mg PO QDAY #90 tab 10/15/17 12/02/17 Rx losartan 50 mg tablet 50 mg PO QDAY #90 tab 10/15/17 12/02/17 Rx potassium chloride ER 10 mEq 20 meq PO QDAY #60 cap 10/15/17 12/02/17 Rx capsule,extended release Allergies/Adverse Reactions: Allergies 3 Allergy/AdvReac Type Severity Reaction Status Date / Time kiwi Allergy Intermediate SWELLING Verified 12/02/17 05:04 No Known Drug Allergies Allergy none Verified 12/02/17 05:04 avacado Allergy Intermediate VOMITING Uncoded 12/02/17 05:04 cucumber Allergy Intermediate VOMITING Uncoded 12/02/17 05:04 Results - Labs CBC and BMP: 12/02/17 04:11 12/02/17 04:11 Exam - Vitals Vital Signs: Vital Signs Temperature 98 F Temperature Source Oral Pulse Rate [Telemetry] 74 Pulse Rate 84 Respiratory Rate 14 Blood Pressure [Left Arm] 182/78 Blood Pressure 161/72 Pulse Ox 95 Oxygen Delivery Method Room Air Height 5 ft 3 in Weight 166 lb 12.8 oz - General General Appearance: No Acute Distress, Cooperative - Respiratory Respiratory Exam: POSITIVE: Clear to Auscultation - Bilaterally, Breathing Non Labored - Cardiovascular Cardiovascular Exam: POSITIVE: RRR, No Murmur, Clicks (Mechanical valve click.) - GI/Abdominal GI/Abdominal Exam: POSITIVE: Normal Bowel Sounds, Non Tender, Non Distended, Soft - Rectal Rectal Exam: POSITIVE: Deferred (In emergency room was Hemoccult positive. Stool this morning was Hemoccult-positive. Both stools were black. No maroon stools or bright red blood per rectum.) - Neurological Neurological Exam: POSITIVE: Alert, Oriented x 3 - Psychiatric Psychiatric Exam: POSITIVE: Normal Affect, Normal Mood Assessment and Plan - Patient Problems (1) Gastrointestinal hemorrhage Current Visit: Yes Status: Acute Priority: High Comment: Please see history of present illness. Extensive workup in January or February 2017. I discussed the options with the patient. It does not appear there is any active ongoing bleeding. We discussed doing nothing and watching her clinical course. We discussed prepping her and doing upper and lower endoscopy. We discussed just doing an upper endoscopy. At the present time she would like to proceed with upper endoscopy only. I think that is reasonable. This sounds more like an upper then a lower intestinal bleed. The right colon is not excluded. She had the worst heartburn of her life on Friday and now is having black stools. It is important to rule out an ulcer or persistent erosive esophagitis. We may need to change her proton pump inhibitor pending findings. At any rate she would like to proceed with an upper endoscopy. We will schedule that for tomorrow.The procedure has been discussed with the patient in complete yet simple terms including benefits, risks, and alternatives. All questions have been answered. Informed consent has been obtained. Code(s): K92.2 - Gastrointestinal hemorrhage, unspecified Qualifiers: GI bleed type/associated pathology: unspecified gastrointestinal hemorrhage type Qualified Code(s): K92.2 - Gastrointestinal hemorrhage, unspecified
[2017-12-02 13:47] LABS: Hematocrit [HCT] 29.8 % (37.0-47.0)
[2017-12-02] MEDS: POTASSIUM CHLORIDE 20 MEQ TAB PO SCH (16:45)
[2017-12-02 19:48] VITALS: RESP 16
[2017-12-02] MEDS ORDERED: PANTOPRAZOLE IV 40 MG VIAL ONE (19:52)
[2017-12-02] MEDS ORDERED: Mirtazapine Tab 15 MG TAB PO SCH (21:00)
[2017-12-02] MEDS ORDERED: Pravastatin 80mg Tab PO SCH (21:00)
[2017-12-03 05:05] LABS: BASOPHILS # (AUTO) 0.03 10*3/UL; BASOPHILS % (AUTO) 0.4 % (0-1); EOSINOPHILS # (AUTO) 0.39 10*3/UL; EOSINOPHILS % (AUTO) 5.4 % (0-8); Hematocrit [HCT] 29.2 % (37.0-47.0); Hemoglobin [HGB] 9.5 g/dL (12.0-16.0); LYMPHOCYTES # (AUTO) 1.07 10*3/uL; MEAN CORPUSCULAR HEMOGLOBIN 26.8 PG (27-31); MEAN CORPUSCULAR HGB CONC 32.5 g/dL (33-37); MEAN CORPUSCULAR VOLUME 82.3 FL (81-99); MEAN PLATELET VOLUME 11.3 FL (7.4-12.2); MONOCYTES % (AUTO) 6.9 % (5-15); NEUTROPHILS # (AUTO) 5.21 10*3/UL; NEUTROPHILS % (AUTO) 72.4 % (50-80); RED BLOOD COUNT 3.55 10^6/uL (4.20-5.40)
[2017-12-03] MEDS ORDERED: PANTOPRAZOLE IV 40 MG VIAL ONE (05:12)
[2017-12-03] MEDS ORDERED: Sodium Chloride 0.9% 100 ML IV ONE (05:13)
[2017-12-03 05:16] LABS: PLATELET MORPHOLOGY COMMENT NORMAL MORPHOLOGY (NORM); RBC MORPHOLOGY COMMENT NORMAL MORPHOLOGY (NORM); WBC MORPHOLOGY COMMENT NORMAL MORPHOLOGY (NORM)
[2017-12-03 05:22] LABS: BLOOD UREA NITROGEN 19 mg/dL (7-22); BUN/CREATININE RATIO 15.83 (6-20)
[2017-12-03] MEDS ORDERED: LEVOTHYROXINE 50 MCG TABLET PO SCH (05:30)
[2017-12-03] MEDS ORDERED: FUROSEMIDE 40 MG TABLET PO SCH (07:00)
[2017-12-03] MEDS ORDERED: Lactated Ringers 1,000 ML PRIMARY IV SCH (07:00)
[2017-12-03] MEDS ORDERED: PROPOFOL 10 MG/1 ML (200 MG/20 ML) VIAL IV ONE (07:31)
[2017-12-03] MEDS ORDERED: LOSARTAN 50 MG TABLET PO SCH (09:00)
[2017-12-03] MEDS ORDERED: METOPROLOL SUCCINATE 50 MG SR 24H TABLET PO SCH (09:00)
[2017-12-03] MEDS ORDERED: VENLAFAXINE XR 75 MG CAP PO SCH (09:00)
[2017-12-03] MEDS ORDERED: Oxybutynin ER Tab 5 MG TAB PO SCH (09:00)
[2017-12-03 09:11] VITALS: TEMP 97.5; O2SAT 98
--- NOTE | 2017-12-03 09:12 | GEN.OPNOTE ---
EGD Operative Note Surgery Date: 12/03/17 Preoperative Diagnosis: Gastrointestinal bleeding. Postoperative Diagnosis: Gastrointestinal bleeding. Procedure: Esophagogastroduodenoscopy with biopsy. Surgeon: Kb Romero MD Anesthesia Provider: Imani Menjivar CRNA Anesthesia Type: MAC Indications: Patient with a history of GI bleeding. Presented with melanotic stools and a decreased hemoglobin and hematocrit. No active bleeding. Proceed with upper endoscopy as she has had recent heartburn. 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 Biopsies taken.] Fundus : [Normal] Body : [Large hiatal hernia with half the stomach above and half below the diaphragm. Otherwise normal.] Prepyloric : [Mild erythema. Biopsies taken.] Small Intestine : [Small duodenal nodule. Biopsies taken. Otherwise normal.] A lubricated flexible upper endoscope was inserted passed through the esophagus and stomach into the duodenum. The scope was advanced well into or past the second portion of the duodenum. There was no small bowel abnormalities identified. In the duodenal bulb was an inflammatory nodule. Multiple biopsies were taken. Hemostasis was assured. The scope was withdrawn into the antrum. There was mild erythema and no other abnormalities. Multiple biopsies were taken. Hemostasis was assured. There was a large hiatal hernia but otherwise the gastric mucosa was unremarkable. The scope was withdrawn into the distal esophagus. 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 Multiple biopsies were taken. Hemostasis was assured. The scope was withdrawn through the remainder of a normal-appearing esophagus and brought through the hypopharynx under suction completing that portion of the procedure. There was no evidence of new or old blood throughout the upper GI tract. The patient tolerated the entire procedure well without complication. She was taken back to the surgical floor in stable condition. Follow-up will be with my office on an as-needed basis. We will call the biopsy results when available. Patient has shown no evidence of ongoing bleeding since her hospitalization. Reasonable to advance her diet and discharge her home per the hospitalist service. She needs to stay on a proton pump inhibitor. Anticoagulation per the hospitalist. Estimated Blood Loss (mL): 1 Fluids: 500 mL of crystalloid. Pathology: Specimens from the duodenum, antrum, and distal esophagus were sent. Complications: None. Endoscopy Procedures - Endoscopy Procedures Primary Endoscopy Procedure: 99917 : EGD w/Biosp[facility]
[2017-12-03] MEDS: POTASSIUM CHLORIDE 20 MEQ TAB PO SCH (09:27)
--- NOTE | 2017-12-03 12:11 | DCSUMMARY ---
Hospitalization Summary Admit Date: 12/01/2017 Discharge Date: 12/03/17 Hospital Course: Discharge diagnoses 1. GI bleed obscure source 2. History of rectus sheath hematoma before 3. History of mechanical aortic valve 4. Hypothyroidism 5. History of GI bleed before she had previous EGD and colonoscopy in [place] then had push enteroscopy in [place] which was negative 6. History of esophagitis before 7. Severe peripheral vascular disease 9. History of GERD 10. History of stroke 11. Admission back in August 2017 for COPD exacerbation secondary to pneumonia and influenza resulted in respiratory failure 12. History of CABG in 2003 13. History of Endovascular abdominal aortic aneurysm repair 14. Inflammatory nodule in the duodenal bulb 15. Hiatal hernia Hospital course This is a 72 years old female with medical history significant for history of coronary artery disease with previous CABG, aortic valve replacement with mechanical valve on anticoagulation, history of peripheral vascular disease with previous endarterectomies, history also of aortic aneurysm repair, hypothyroidism, hypertension, GERD with history of esophagitis, depression, history of previous stroke, history of previous rectus sheath hematoma, admission back in August for COPD exacerbation secondary to flu and pneumonia ended up in respiratory failure and transferred to [facility] [place], who presented to the hospital with history of fatigue of 2 days' duration the family also noticed the patient to be pale on the day of admission they called the office of Dr. Real she had a blood tests which showed the hemoglobin to be low at 7.5 so she came into the ER she did report one episode of melena on the day of admission. Evaluation did show positive occult stool and a hemoglobin of 7. So she was admitted to the hospital. We gave 2 units of blood. She felt better after that we consulted Dr. Romero he did an upper scope which showed no evidence of active bleeding, there was an inflammatory nodule in the duodenal bulb biopsies were taking. It was mild erythema in the antrum. There was large hiatal hernia but otherwise gastric mucosa was unremarkable. 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 I saw her post the procedure she was doing fine denying symptoms. Her hemoglobin posttransfusion yesterday was 9.3 today it is 9.5. We thought she could be discharged home and F/U with her primary as an outpatient. I did speak with Dr. Real he knows about her. Her INR is 1.8 I think she can restart her Coumadin tonight and have an INR tomorrow. Dr. Real will put an order for hemoglobin/hematocrit so that she can check it in case the she has symptoms that suggest anemia. Discharge instruction Diet regular Activity as started Medications Active Medications Generic Name Dose Route Start Last Admin Trade Name Freq PRN Reason Stop Dose Admin Acetaminophen 650 mg 12/02/17 10:07 Tylenol PO Q6H PRN Pain or Fever Albuterol Sulfate 2 puff 12/02/17 10:07 Proair Hfa Inhaler INH RTQ4H PRN shortness of breath or wheezing Amlodipine Besylate 10 mg 12/03/17 09:00 12/03/17 09:26 Norvasc PO 10 mg DAILY BRYSON Administration Calcium Carbonate 1 - 2 tab 12/02/17 10:07 Tums PO Q6H PRN Heartburn Docusate Sodium 100 mg 12/02/17 10:07 Colace PO BID PRN Constipation Furosemide 40 mg 12/03/17 07:00 12/03/17 09:27 Lasix PO 40 mg DAILY@0700 BRYSON Administration Sodium Chloride 25 mls @ 200 mls/hr 12/02/17 10:07 Normal Saline 0.9% IV .Post Infusion PRN No Primary IV for Flush ONLY Pantoprazole Sodium 80 mg/ 100 mls @ 10 mls/hr 12/02/17 10:07 12/03/17 05:36 Sodium Chloride IV 10 mls/hr .Continuous BRYSON Administration Levothyroxine Sodium 50 mcg 12/03/17 05:30 12/03/17 09:26 Synthroid PO 50 mcg DAILY@0530 BRYSON Administration Lidocaine HCl 0.5 ml 12/02/17 10:07 Lidocaine Buffered Inj SUBD ONCE PRN IV Starts Lidocaine HCl 0.5 ml 12/02/17 12:38 Lidocaine Buffered Inj SUBD ONCE PRN IV Starts Losartan Potassium 50 mg 12/03/17 09:00 12/03/17 09:26 Cozaar PO 50 mg DAILY BRYSON Administration Metoprolol Succinate 50 mg 12/03/17 09:00 12/03/17 09:26 Toprol Xl PO 50 mg DAILY BRYSON Administration Mirtazapine 7.5 mg 12/02/17 21:00 12/03/17 01:48 Remeron PO Not Given BEDTIME BRYSON Ondansetron HCl 4 mg 12/02/17 10:07 Zofran Inj IVP Q4H PRN NAUSEA / VOMITING Oxybutynin Chloride 5 mg 12/03/17 09:00 12/03/17 09:26 Ditropan Xl PO 5 mg DAILY BRYSON Administration Potassium Chloride 20 meq 12/02/17 17:00 12/03/17 09:27 Klor-Con PO 20 meq BID MEALS BRYSON Administration Pravastatin Sodium 80 mg 12/02/17 21:00 12/02/17 20:20 Pravachol PO 80 mg BEDTIME BRYSON Administration Sodium Chloride 5 - 20 ml 12/02/17 10:07 Saline Flush IVP BID PRN Flush Sodium Chloride 5 - 20 ml 12/02/17 12:38 Saline Flush IVP BID PRN Flush Venlafaxine HCl 150 mg 12/03/17 09:00 12/03/17 09:27 Effexor Xr PO 150 mg DAILY BRYSON Administration Follow-up with the PCP 1-2 weeks, INR tomorrow as scheduled Condition at discharge was stable for discharge Exam - Vitals Vital Signs: Vital Signs Temperature 97.5 F Temperature Source Temporal Artery Scan Pulse Rate [Pulse Oximeter] 64 Pulse Rate [Telemetry] 61 Pulse Rate 87 Respiratory Rate 16 Blood Pressure [Left Arm] 139/61 Blood Pressure 161/72 Pulse Ox 98 Oxygen Delivery Method Room Air Height 5 ft 3 in Weight 164 lb 12.8 oz - General General Appearance: No Acute Distress, Cooperative - Head Head Exam: Normal Inspection, Atraumatic - Eye Eye Exam: POSITIVE: Normal Appearance - ENT ENT Exam: POSITIVE: Normal Exam - Neck Neck Exam: Normal Inspection - Respiratory Respiratory Exam: POSITIVE: Clear to Auscultation - Bilaterally - Cardiovascular Cardiovascular Exam: POSITIVE: RRR - GI/Abdominal GI/Abdominal Exam: POSITIVE: Normal Bowel Sounds, Non Tender, Non Distended, Soft, No Organomegaly - Rectal Rectal Exam: POSITIVE: Deferred - External Exam: POSITIVE: Deferred - Extremities Extremities Exam: POSITIVE: Normal Inspection - Back Back Exam: POSITIVE: Normal Inspection - Neurological Neurological Exam: POSITIVE: Alert, Oriented x 3, Normal Gait, CN II-XII Intact , Moves All Extremities Equally - Psychiatric Psychiatric Exam: POSITIVE: Normal Affect Patient Problems - Patient Problem List (1) Gastrointestinal hemorrhage with melena Status: Acute Onset Date: 01/15/17 Code(s): K92.1 - Melena Category: Medical (2) Depressive disorder Status: Chronic Onset Date: 04/29/13 Code(s): F32.9 - Major depressive disorder, single episode, unspecified Category: Medical (3) Hyperlipidemia Status: Chronic Onset Date: 04/29/13 Code(s): E78.5 - Hyperlipidemia, unspecified Qualifiers: Hyperlipidemia type: unspecified Qualified Code(s): E78.5 - Hyperlipidemia , unspecified Category: Medical (4) Benign hypertension Status: Chronic Category: Medical (5) Mechanical heart valve present Status: Chronic Onset Date: 04/29/13 Comment: Aortic Code(s): Z95.2 - Presence of prosthetic heart valve Category: Medical (6) Hypokalemia Status: Acute Code(s): E87.6 - Hypokalemia Category: Medical
--- NOTE | 2017-12-03 16:18 | CRNA.PROGR ---
Post Anesthesia Phase II - Post Anesthesia Phase II Patient Stable and Discharged To: Phase II Care Assumed By Surgeon: Kb Romero MD Temperature: 97.5 F Pulse Rate: 87 Respiratory Rate: 16 Blood Pressure: 161/72 Pulse Ox: 98 Total Ata Score at Discharge: 9 Post Anesthesia Discharge Criteria Met: Yes
--- NOTE | 2017-12-03 16:18 | CRNA.PROGR ---
Anesthesia Time - - Start date: 12/03/17 End date: 12/03/17 - Procedure/Recovery Time Anesthesia : Time In: 08:33 Anesthesia : Time Out: 09:05 Anesthesia : Total Time: 32 - Total Anesthesia Time Total Anesthesia Time (minutes): 32 - Other Weight: 74.752 kg Height: 5 ft 3 in Body Mass Index (BMI): 29.2 Physical Status: P2 Anesthesia Type: MAC
[2017-12-03 16:19] VITALS: BP 161/72
== END 2017-12-03 12:23 | disposition home or self-care (01) | DRG 378 ==
LOC: ER 19:22 → MED/SURG 21:35 → ICU 23:20 → MED/SURG 12-02 09:55 → OPS 12-03 08:10 → MED/SURG 12-03 09:05
PROVIDERS: ADMIT Internal Medicine; ATTEND Internal Medicine

== ENCOUNTER 2018-07-17 16:34 | Observation (INO) ==
[2018-07-17] MEDS ORDERED: LABETALOL 20 MG/4 ML (5 MG/1 ML) SYRINGE IVP ONE ×2 (17:08→19:23)
--- NOTE | 2018-07-17 17:08 | EKG ---
Measurements Intervals [place] Rate: 58 P: 61 HI: 178 QRS: 10 QRSD: 104 T: 90 QT: 454 QTc: 451 Interpretive Statements SINUS BRADYCARDIA VOLTAGE CRITERIA FOR LVH, CONSIDER NORMAL VARIANT Compared to ECG 06/26/2018 09:11:07 T-wave abnormality no longer present Possible ischemia no longer present Electronically Signed On 07-19-18 16:41:26 MDT by Maxime Burgess [email or web address]
[2018-07-17 17:29] LABS: BASOPHILS # (AUTO) 0.03 10*3/UL; BASOPHILS % (AUTO) 0.4 % (0-1); EOSINOPHILS # (AUTO) 0.24 10*3/UL; Hematocrit [HCT] 34.3 % (37.0-47.0); Hemoglobin [HGB] 11.2 g/dL (12.0-16.0); LYMPHOCYTES # (AUTO) 0.38 10*3/uL; MEAN CORPUSCULAR HEMOGLOBIN 25.6 PG (27-31); MEAN CORPUSCULAR HGB CONC 32.7 g/dL (33-37); MEAN CORPUSCULAR VOLUME 78.3 FL (81-99); MONOCYTES # (AUTO) 0.22 10*3/UL (0.3-0.8); MONOCYTES % (AUTO) 2.7 % (5-15); NEUTROPHILS # (AUTO) 7.21 10*3/UL; NEUTROPHILS % (AUTO) 89.1 % (50-80); RED BLOOD COUNT 4.38 10^6/uL (4.20-5.40)
[2018-07-17 17:41] LABS: BLOOD UREA NITROGEN 20 mg/dL (7-22); BUN/CREATININE RATIO 18.18 (6-20); SERUM ALBUMIN 3.8 g/dL (3.5-4.8)
--- NOTE | 2018-07-17 17:43 | DI ---
Comparison: PA/LAT chest x-ray 03/31/2018. Findings: A single portable frontal view of the chest is submitted. There is an accessed left chest P ort-A-Cath with the tip projecting over the superior vena cava. Images demonstrate patchy bibasilar opacities that could represent atelectasis versus early airspace disease. There is no large pneumothorax or pleural effusion. The patient is status post median sterno lila and aortic valve replacement. The cardiomediastinal silhouette is enlarged with increased pulmon junaa vasculature, findings associated with pulmonary edema in the setting of heart failure. Atheromato us calcifications are noted in the arch of the tortuous thoracic aorta. A rounded density projects ov er the lower mediastinum, most likely representing a hiatal hernia. The osseous structures are not si gnificantly changed with radiopaque densities projecting over the midthoracic spine likely associated with vertebroplasty. Impression: 1. Patchy bibasilar opacities could represent atelectasis versus early airspace disease in the correc t clinical setting. Repeat imaging 6 weeks following completion of therapy is recommended in order to ensure resolution. 2. There are findings that can be seen in the setting of pulmonary edema secondary to heart failure.
[2018-07-17 17:54] LABS: PLATELET MORPHOLOGY COMMENT NORMAL MORPHOLOGY (NORM); RBC MORPHOLOGY COMMENT NORMAL MORPHOLOGY (NORM); WBC MORPHOLOGY COMMENT NORMAL MORPHOLOGY (NORM)
[2018-07-17] MEDS ORDERED: AmLODIPine Tab 5 MG TABLET PO ONE (19:23)
[2018-07-17] MEDS ORDERED: FUROSEMIDE 10 MG/1 ML - 4 ML IVP ONE (21:40)
[2018-07-17] MEDS ORDERED: IPRATROPIUM/ALBUTEROL SULFATE 3 ML NEB NEB PRN (21:40)
[2018-07-17] MEDS ORDERED: Warfarin Tab 2 MG TAB PO SCH (21:40)
[2018-07-17] MEDS ORDERED: CALCIUM CARBONATE 500 MG (TUMS) CHEWABLE TABLET PO PRN (21:40)
[2018-07-17] MEDS ORDERED: DOCUSATE 100 MG CAPSULE PO PRN (21:40)
[2018-07-17] MEDS ORDERED: Nitroglycerin Drip 25,000 MCG/250 ML BOTTLE IV SCH ×2 (21:40→21:45)
[2018-07-17] MEDS ORDERED: HYDROcodone-APAP 7.5 MG-325 MG TABLET PO PRN (21:40)
[2018-07-17] MEDS ORDERED: ONDANSETRON 4 MG/2 ML VIAL IVP PRN (21:40)
[2018-07-17] MEDS ORDERED: LIDOCAINE W/ SODIUM BICARB 0.5 ML SYR SUBD PRN (21:40)
[2018-07-17] MEDS ORDERED: ACETAMINOPHEN 325 MG TABLET PO PRN (21:40)
[2018-07-17] MEDS ORDERED: Mirtazapine Tab 15 MG TAB PO SCH (21:40)
--- NOTE | 2018-07-17 21:50 | PDOC ---
HPI - History of Present Illness Date of Service: 07/17/18 Time of Service: 21:45 Chief Complaint: High blood pressures History of Present Illness: This very pleasant 73-year-old female well known to the hospital service with underlying history of peripheral arterial disease, coronary artery disease, history of an aortic valve replacement, acute respiratory distress syndrome with respiratory failure requiring intubation and transfer to [place] related to influenza shortly after an outpatient flu shot, history of ischemic colitis recently that required a bowel resection and a takedown is now being planned for the colostomy bag. [facility] daughter-in- law with completes of high blood pressure after colonoscopy for takedown colostomy planning. She does not remember the gastrologist who performed the procedure but she does remember that she had a dose of antibiotics via her port prior to that. She states that her blood pressures were high prior to the procedure as high as the 220s and told. They were apparently as high as the 250s systolic post procedure. After her procedure she had her blood pressure medications given by mouth. She did not take them prior to the procedure per their instructions. She does not have any headache, she denies any chest pain, she denies any urinary problems, she denies any stroke symptoms muscle weakness slurred speech or facial droop. She apparently had a history of a transient ischemic attack or stroke after prior cardiac stents were placed but that resolved within less than 24 hours. She states to me that her blood pressures normally run in the 120 systolic with her home monitoring device and her systolic blood pressures normally run in the 60s to 70s range. She also is on Coumadin for her aortic valve, but does not have any bridging Lovenox despite procedure done today. She does have a history of gastrointestinal bleeding with push enteroscopy done at [facility] but she does not have any symptoms currently of any gastrointestinal bleeding. She also had a history of an abdominal rectus bleed in the past presumably from subcutaneous dalteparin or Lovenox. In the emergency room, she had 2 doses of labetalol and tablet of Norvasc without significant results in terms of reducing her blood pressure. On the floor, her systolic blood pressures to 33 and her diastolic is just over 100. The TSH was noted to be elevated and the free T4 was normal. Past Medical History Medical History: 1. GI bleed probably secondary to AV malformations, status post push enteroscopy results from [facility] which was negative. 2. Hypertension. 3. Hypothyroidism. 4. Coronary artery disease status post CABG. 5. Aortic valve, mechanical. 6. Long-term anticoagulation due to mechanical valve. 7. Severe peripheral arterial disease. 8. Vitamin D deficiency. 9. Osteoporosis. 10. GERD with history of esophagitis. 11. Depression, well controlled. 12. Hypercholesterolemia. 13. History of stroke , presumed related to cardioembolic source when off anticoagulation waiting for a left carotid stent. 14. Respiratory failure secondary to pneumonia and Flu in 08/2017 needed intubation was tranferred to [facility]. 15. History of rectus sheath hematoma August 2017 was transferred to [facility] needed embolization. 16. Ischemic colitis status post bowel resection with ostomy in place. Takedown being planned. 17. Claudication with plans for peripheral arterial stents to be done by cardiology in the near future. These are being planned for after the takedown due to need to be on Plavix. Surgical History: 1. Multiple colonoscopies and EGDs. 2. Push enteroscopy done in [place]. 3. Angioplasty of arteries and veins in lower extremities. 4. CABG in 2003. 5. Mechanical aortic valve in 2003. 6. Right arm surgeries. 7. Endovascular abdominal aortic aneurysm repair. 8. Right carotid endarterectomy. 9. Left carotid stent placement. 10. Total knee replacement. 11. Appendectomy. 12. Hysterectomy and bilateral salpingo- oophorectomy. 13. Tubal ligation. 14. Iliac aneurysm repair. 15. Cataract surgery. 16. Embolectomy of the abdominis rectus bleed. 17. Ischemic colitis status post bowel resection and colostomy placement Pertinent Family History: She states she does not know her mother's history she did not really live with her. Her father of coronary artery disease complications and dementia. Past Social History: Quit smoking years ago. Lives alone, , has children that are described as healthy. Does not drink alcohol. Tobacco Use: Never Smoker In the Past 12 Months, Have Used or Abuse Any of the Following Substance: None Alcohol Use: None Medication / Allergies Home Medications: Home Medications 3 Medication Instructions Recorded Confirmed Type cholecalciferol (vitamin D3) 2,000 2,000 unit PO QDAY cap 08/05/17 05/27/18 History unit capsule denosumab 60 mg/mL subcutaneous 60 mg SUBCUT [id number] #1 ml 08/05/17 05/27/18 History syringe ipratropium-albuterol 0.5 mg-3 3 ml INH Q4H PRN ml 09/03/17 05/27/18 History mg(2.5 mg base)/3 mL nebulization soln potassium chloride ER 10 mEq 20 meq PO QDAY #60 cap 10/15/17 05/27/18 Rx capsule,extended release warfarin 2 mg tablet 4 mg PO QHS #180 tab 12/10/17 05/27/18 Rx dexlansoprazole 60 mg 60 mg PO BID #60 cap 12/26/17 05/27/18 Rx capsule,biphase delayed release oxybutynin chloride ER 5 mg 5 mg PO QDAY #90 tab 01/01/18 05/27/18 Rx tablet,extended release 24 hr furosemide 40 mg tablet 40 mg PO QAM 01/20/18 05/27/18 History triamcinolone acetonide 0.5 % 1 applic TOPICAL QHS #15 g 01/28/18 05/27/18 Rx topical cream levothyroxine 50 mcg tablet 50 mcg PO QAM #90 tab 02/17/18 05/27/18 Rx losartan 50 mg tablet 50 mg PO QDAY #90 tab 02/17/18 05/27/18 Rx metoprolol succinate ER 50 mg 50 mg PO QDAY #90 tab 02/17/18 05/27/18 Rx tablet,extended release 24 hr mirtazapine 15 mg tablet 7.5 mg PO QHS #45 tab 02/17/18 05/27/18 Rx pravastatin 80 mg tablet 80 mg PO QDAY #90 tab 02/17/18 05/27/18 Rx calcium carbonate 600 mg calcium 600 mg PO QDAY #30 tab 03/30/18 05/27/18 Rx (1,500 mg) tablet venlafaxine ER 150 mg 150 mg PO QDAY #90 cap 06/15/18 Rx capsule,extended release 24 hr hydrocodone 7.5 mg-acetaminophen 1 tab PO Q6H PRN #30 tab 07/13/18 Rx 325 mg tablet Allergies/Adverse Reactions: Allergies 3 Allergy/AdvReac Type Severity Reaction Status Date / Time kiwi Allergy Intermediate SWELLING Verified 07/17/18 21:48 No Known Drug Allergies Allergy none Verified 07/17/18 21:48 avacado Allergy Intermediate VOMITING Uncoded 07/17/18 21:48 cucumber Allergy Intermediate VOMITING Uncoded 07/17/18 21:48 Review of Systems - Review of Systems All Systems: Reviewed & No Additional Complaints Except as Stated (I did a 12 point review of systems and it is negative other than that discussed in history present illness and those exceptions noted below.) - Constitutional Constitutional: REPORTS: Negative System Review - Respiratory Respiratory: REPORTS: Negative System Review - Cardiovascular Cardiovascular: REPORTS: Negative System Review - Genitourinary Genitourinary: REPORTS: Negative System Review - Hematlogic / Lymphatic Hematologic / Lymphatic: REPORTS: Negative System Review - Neurological Neurologic: REPORTS: Negative System Review Exam - Vitals Vital Signs: Vital Signs Temperature 97.8 F Temperature Source Temporal Artery Scan Pulse Rate [Pulse Oximeter] 64 Pulse Rate 58 Respiratory Rate 16 Blood Pressure [Left Arm] 233/101 Pulse Ox 93 Oxygen Delivery Method Room Air Height 5 ft 5 in Weight 154 lb - General General Appearance: No Acute Distress, Cooperative - Head Head Exam: Normal Inspection, Normocephalic, Atraumatic - Eye Eye Exam: POSITIVE: No Scleral Icterus - ENT ENT Exam: POSITIVE: Mucous Membranes Moist - Neck Neck Exam: Normal Inspection, No Tenderness, No Lymphadenopathy, No Thyromegaly , JVP is not Raised - Respiratory Respiratory Exam: POSITIVE: Clear to Auscultation - Bilaterally, Breathing Non Labored, Normal to Percussion and Palpation - Cardiovascular Cardiovascular Exam: POSITIVE: RRR, No Gallops, No JVD, Clicks (Has a mechanical aortic valve.) - GI/Abdominal GI/Abdominal Exam: POSITIVE: Normal Bowel Sounds, Non Tender, Non Distended, Soft Additional GI/Abdominal Exam Details: Colostomy and left midabdomen range and the ostomy looks viable and pink - Rectal Rectal Exam: POSITIVE: Deferred - External Exam: POSITIVE: Deferred Exam: POSITIVE: Deferred - Extremities Extremities Exam: POSITIVE: No Clubbing Present, No Cyanosis Present, Pedal Edema (I think trace pedal edema is present) Additional Extremities Exam Details: Hands appear somewhat "puffy" - Back Back Exam: POSITIVE: No CVA Tenderness - Neurological Neurological Exam: POSITIVE: Alert, Oriented x 3, Normal Gait, No Facial Droop, Speech Intact / Clear, Moves All Extremities Equally - Psychiatric Psychiatric Exam: POSITIVE: Normal Affect, Normal Mood - Integumentary Integumentary Exam: POSITIVE: Normal Color, Warm, Dry, Intact Results - Labs CBC and BMP: 07/17/18 17:20 07/17/18 17:20 Additional Lab Results: Laboratory Results 07/17/18 07/17/18 07/17/18 Range/Units 17:20 17:20 17:20 WBC 8.09 (4.8-10.8) 10^3/uL RBC 4.38 (4.20-5.40) 10^6/uL Hgb 11.2 L (12.0-16.0) g/dL Hct 34.3 L (37.0-47.0) % MCV 78.3 L (81-99) FL MCH 25.6 L (27-31) PG MCHC 32.7 L (33-37) g/dL RDW Std Deviation 49.3 (39-50) fL RDW Coeff of Blanca 17.6 H (11.5-14.5) % Plt Count 184 (140-350) 10*3/uL MPV 11.0 (7.4-12.2) FL Immature Gran % (Auto) 0.1 (0-5) % Neut % (Auto) 89.1 H (50-80) % Lymph % (Auto) 4.7 L (10-50) % [place] % (Auto) 2.7 L (5-15) % Eos % (Auto) 3.0 (0-8) % Baso % (Auto) 0.4 (0-1) % Immature Gran # (Auto) 0.01 10*3/UL Neut # (Auto) 7.21 10*3/UL Lymph # (Auto) 0.38 10*3/uL [place] # (Auto) 0.22 L (0.3-0.8) 10*3/UL Eos # (Auto) 0.24 10*3/UL Baso # (Auto) 0.03 10*3/UL WBC Morphology Comment Normal morphology (NORM) Plt Morphology Comment Normal morphology (NORM) RBC Morph Comment Normal morphology (NORM) PT (9.7-11.4) secs INR (0.00-5.90) N/A Sodium 136 (135-145) meq/L Potassium 4.1 (3.8-5.2) meq/L Chloride 108 (98-112) meq/L Carbon Dioxide 23 (23-33) meq/L Anion Gap 5 (5-20) BUN 20 (7-22) mg/dL Creatinine 1.1 (0.50-1.20) mg/dL BUN/Creatinine Ratio 18.18 (6-20) Glucose 93 (78-110) mg/dL Calculated Osmolality 284.0 (267-292) mOsm/kg Calcium 9.5 (8.7-10.7) mg/dL Total Bilirubin 0.4 (0.3-1.2) mg/dL AST 18 (8-39) IU/L ALT 23 (9-52) IU/L Alkaline Phosphatase 70 (38-126) IU/L Troponin I 0.028 (< 0.040) ng/mL C-Reactive Protein 0.6 (0.0-0.9) mg/dL NT-Pro-B Natriuret Pep 55173 H (0-125) PG/ML Total Protein 6.7 (6.1-8.0) g/dL Albumin 3.8 (3.5-4.8) g/dL Globulin 3.0 (2.50-4.10) g/dL Albumin/Globulin Ratio 1.20 L (1.3-2.0) mg/g TSH (0.2700-4.2000) uIU/mL Free T4 (0.93-1.71) ng/dL 07/17/18 07/17/18 Range/Units 17:20 17:20 WBC (4.8-10.8) 10^3/uL RBC (4.20-5.40) 10^6/uL Hgb (12.0-16.0) g/dL Hct (37.0-47.0) % MCV (81-99) FL MCH (27-31) PG MCHC (33-37) g/dL RDW Std Deviation (39-50) fL RDW Coeff of Blanca (11.5-14.5) % Plt Count (140-350) 10*3/uL MPV (7.4-12.2) FL Immature Gran % (Auto) (0-5) % Neut % (Auto) (50-80) % Lymph % (Auto) (10-50) % [place] % (Auto) (5-15) % Eos % (Auto) (0-8) % Baso % (Auto) (0-1) % Immature Gran # (Auto) 10*3/UL Neut # (Auto) 10*3/UL Lymph # (Auto) 10*3/uL [place] # (Auto) (0.3-0.8) 10*3/UL Eos # (Auto) 10*3/UL Baso # (Auto) 10*3/UL WBC Morphology Comment (NORM) Plt Morphology Comment (NORM) RBC Morph Comment (NORM) PT 11.9 H (9.7-11.4) secs INR 1.15 (0.00-5.90) N/A Sodium (135-145) meq/L Potassium (3.8-5.2) meq/L Chloride (98-112) meq/L Carbon Dioxide (23-33) meq/L Anion Gap (5-20) BUN (7-22) mg/dL Creatinine (0.50-1.20) mg/dL BUN/Creatinine Ratio (6-20) Glucose (78-110) mg/dL Calculated Osmolality (267-292) mOsm/kg Calcium (8.7-10.7) mg/dL Total Bilirubin (0.3-1.2) mg/dL AST (8-39) IU/L ALT (9-52) IU/L Alkaline Phosphatase (38-126) IU/L Troponin I (< 0.040) ng/mL C-Reactive Protein (0.0-0.9) mg/dL NT-Pro-B Natriuret Pep (0-125) PG/ML Total Protein (6.1-8.0) g/dL Albumin (3.5-4.8) g/dL Globulin (2.50-4.10) g/dL Albumin/Globulin Ratio (1.3-2.0) mg/g TSH 7.25 H (0.2700-4.2000) uIU/mL Free T4 1.22 (0.93-1.71) ng/dL - EKG Data -: EKG Interpreted by Me Rate: Bradycardia EKG Shows Normal: Sinus Rhythm - EKG Data EKG Interpretation: Other (Nonspecific T-wave inversion in aVL) - Imaging Status: Image Reviewed by Me (I looked at the chest x-ray. The patient has what appears to be cardiomegaly although this is a portable film, a mechanical valve, changes consistent with prior CABG, and slight pulmonary vascular congestion that could suggest congestive heart failure.) Assessment and Plan - Patient Problems (1) Hypertensive crisis Current Visit: Yes Status: Acute Code(s): I16.9 - Hypertensive crisis, unspecified (2) Hypertensive heart failure Current Visit: Yes Status: Acute Code(s): I11.0 - Hypertensive heart disease with heart failure (3) Coronary artery disease Current Visit: Yes Status: Acute Code(s): I25.10 - Atherosclerotic heart disease of [place] coronary artery without angina pectoris Qualifiers: Coronary Disease-Associated Artery/Lesion type: bypass graft, autologous artery Associated angina: without angina Qualified Code(s): I25.810 - Atherosclerosis of coronary artery bypass graft(s) without angina pectoris (4) H/O aortic valve replacement Current Visit: Yes Status: Chronic Onset Date: 07/20/15 Code(s): Z95.2 - Presence of prosthetic heart valve (5) Benign essential hypertension Current Visit: Yes Status: Chronic Onset Date: 09/26/14 Code(s): I10 - Essential (primary) hypertension (6) Acquired hypothyroidism Current Visit: Yes Status: Chronic Onset Date: 03/12/17 Code(s): E03.9 - Hypothyroidism, unspecified (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 I will also use Lasix. I suspect that the patient has some fluid overload which could be causing the hypertensive crisis. It could also be that the patient has hypertensive congestive heart failure as a result of these elevated blood pressures. I'll give a dose of Lasix. I like to try and keep the systolics at about the 170s range overnight if possible. That would be within the range of about a 10-20% reduction currently. I'm a little reluctant to start Lovenox until more in the 170s. I do think the patient needs bridging to an INR of 2.0-2.5, but given the high blood pressures , significant problems with bleeding with Lovenox in the past, significant history of gastrointestinal bleeding in the past, I think that it would be best to get the blood pressures under better control first. This is a difficult decision of course, with an aortic valve that is mechanical. I discussed the risks and benefits with the patient and her [id number], specifying in particular that this is her "damn if you do and damn if you don't choice". By this I mean that if we do not use Lovenox and the patient has an ischemic stroke then that would be a bad issue, but if I use Lovenox with these blood pressures as high as they are currently, and up bleeding stroke or hypertensive bleed happens then of course people would be upset with that as well. I feel, and the patient and her [id number] agree, that the best strategy going forward would be to hold off on the Lovenox until the systolic pressures were a little lower. Given the TSH, I did review this. It's consistently been elevated and the patient states that she's been compliant with her Synthroid dose. I think she needs a dose increase and we'll increase it to 75 g daily. Free T4 does appear normal, but I think the TSH at 7 suggest that the replacement might not be high enough and I'd like to see the TSH at about 4-1/2 or less. Full code plan above discussed and patient and family agreed.
[2018-07-17] MEDS ORDERED: Sodium Chloride 0.9% 1,000 ML PRIMARY IV ONE (22:19)
[2018-07-17] MEDS ORDERED: Sodium Chloride 0.9% 1,000 ML PRIMARY IV SCH (22:30)
--- NOTE | 2018-07-17 22:48 | PDOC ---
General Adult HPI - General Chief Complaint: General Medical Stated Complaint: HIGH BLOOD PRESSURE Date Seen by Provider: 07/17/18 Time Seen by Provider: 16:35 - History of Present Illness Initial Comment: The patient is a 73-year-old female who is evaluated in the emergency department with elevated blood pressure. The patient does have a history of hypertension as well as multiple medical problems including history of mechanical aortic valve replacement. She is chronically anticoagulated with Coumadin. She underwent colonoscopy earlier this morning. She had been off of her Coumadin and bridged with Lovenox for the past week. She states that when she arrived at the hospital in [place] for her colonoscopy her blood pressure was elevated with a systolic reading of 210. She underwent the procedure and apparently had received some medication through the IV for her blood pressure during the procedure. She was allowed to take her regular medications after the procedure. Her blood pressure however remained in the 220s. She was subsequently discharged home. Her blood pressure at home has remained high despite taking her medication and she had a reading as high as 250 systolic at home. She denies any specific complaints of headache, chest pain or increased shortness of breath. She states that she does feel just a little bit shaky. She states that her blood pressure has been running a little bit higher in general since she had a colostomy this spring. She states that she typically has readings of 140-160 systolic. Have you received a tetanus shot in the past 10 years?: Unknown - Patient Home Medications Home Medications: Home Medications cholecalciferol (vitamin D3) 2,000 unit capsule 2,000 unit PO QDAY cap denosumab 60 mg/mL subcutaneous syringe 60 mg SUBCUT [id number] #1 ml 08/05/17 ipratropium-albuterol 0.5 mg-3 mg(2.5 mg base)/3 mL nebulization soln 3 ml INH Q4H PRN ml 09/03/17 potassium chloride ER 10 mEq capsule,extended release 20 meq PO QDAY #60 cap 07/23 warfarin 2 mg tablet 4 mg PO QHS #180 tab 12/10/17 dexlansoprazole 60 mg capsule,biphase delayed release 60 mg PO BID #60 cap 12/26 oxybutynin chloride ER 5 mg tablet,extended release 24 hr 5 mg PO QDAY #90 tab 01/01/18 furosemide 40 mg tablet 40 mg PO QAM 01/20/18 triamcinolone acetonide 0.5 % topical cream 1 applic TOPICAL QHS #15 g 01/28/18 levothyroxine 50 mcg tablet 50 mcg PO QAM #90 tab 02/17/18 losartan 50 mg tablet 50 mg PO QDAY #90 tab 02/17/18 metoprolol succinate ER 50 mg tablet,extended release 24 hr 50 mg PO QDAY #90 tab 02/17/18 mirtazapine 15 mg tablet 7.5 mg PO QHS #45 tab 02/17/18 pravastatin 80 mg tablet 80 mg PO QDAY #90 tab 02/17/18 calcium carbonate 600 mg calcium (1,500 mg) tablet 600 mg PO QDAY #30 tab venlafaxine ER 150 mg capsule,extended release 24 hr 150 mg PO QDAY #90 cap 07/23 hydrocodone 7.5 mg-acetaminophen 325 mg tablet 1 tab PO Q6H PRN #30 tab - Patient Allergies Allergies/Adverse Reactions: Allergies 3 Allergy/AdvReac Type Severity Reaction Status Date / Time kiwi Allergy Intermediate SWELLING Verified 07/17/18 21:48 No Known Drug Allergies Allergy none Verified 07/17/18 21:48 avacado Allergy Intermediate VOMITING Uncoded 07/17/18 21:48 cucumber Allergy Intermediate VOMITING Uncoded 07/17/18 21:48 Past Medical History - heen HEENT History: Hard of Hearing, Dentures/Partials Additional HEENT History: 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 Reading glasses. Cardiovascular History: Hypertension, CHF, Previous CA, Hyperlipidemia Additional Cardiovasular History: stents to left carotid, bilat carotid angioplasty, 4 bypasses Respiratory History: Denies History, Pneumonia, Snoring Additional Respiratory History: Beginning stages of COPD. influenza a 2016 Gastrointestinal History: GERD, GI Bleed, Hiatal Hernia, Colostomy Genitourinary History: Denies History Endocrine History: Hypothyroidism Musculoskeletal History: Osteoporosis, Back Pain, Back Injury Prosthesis or Implant: Yes (stents, Right TKA, mechanical heart valve) Additional Musculoskeletal History: Upper and lower back surgery. Leg pains Neurological History: CVA Additional Neurological History: HX OF STROKE- JANUARY 2017 Blood Disorders: Anemia Psychiatric History: Depression History of Sexually Transmitted Diseases: No Female Reproductive History: Denies History Obstetrical History: Denies History Cancer History: Denies History In Past Year Been Physically Harmed or Verbally Threatened: No History of MDRO: No History of Other Communicable Diseases: No Tobacco Use: Never Smoker Alcohol Use: None In the Past 12 Months, Have Used or Abuse Any Substance: None Previous Surgical History: Yes Type / Date of Surgery: appendectomy, tubular , hysterectomy. R TKA, back surgeries, carotid endarterectomy/ laser cataract / CABG /AAA repair, STENT PLACEMENT- 1. open heart - AORTIC VALVE REPLACEMENT AAA REPAIRED/ STENTED 4 VESSEL CABG, CAROTIDS DONE, COLONOSCOPY, EVADED HEART. Bilat cubital tunnel Anesthesia Reactions: No (PONV) Malignant Hyperthermia: No Significant Family History: Cancer Past Medical History Reviewed: Reviewed - No Changes ROS - Limitations ROS Limitations: No Limitations Constitution: DENIES: Chills, Fever Cardiovascular: DENIES: Chest Pain, Edema Respiratory: DENIES: Shortness Of Breath Neurological: DENIES: Headache Gastrointestinal: DENIES: Vomitting, Diarrhea Musculoskeletal: REPORTS: Denies MS Symptoms Eyes: REPORTS: Denies Symptoms ENT: REPORTS: Denies Symptoms Skin: DENIES: Rash General Adult Exam - General Appearance General Appearance: POSITIVE: Alert, Cooperative, No Acute Distress - HEENT HEENT: POSITIVE: Head Inspection Nml, Eyes Inspection Nml, Ears Inspection Nml, Nose Inspection Nml, Pharynx Inspect. Nml - Neck Neck: POSITIVE: Normal Inspection. NEGATIVE: Lymphadenopathy - Respiratory Respiratory: POSITIVE: No Respiratory Distress, Breath Sounds Normal - Cardiovascular Cardiovascular: POSITIVE: Regular Rate & Rhythm, Other (Mechanical heart sounds heard best over the aortic valve) Peripheral Pulses: Dorsalis-pedis (R): 2+, Dorsalis-pedis (L): 2+ - Abdomen Abdomen: Soft: (All Quadrants), Denies Tenderness: (All Quadrants), No Distention: (All Quadrants) - Skin Skin: POSITIVE: Normal Color. NEGATIVE: Rash - Extremities Extremity: Normal ROM: (All Extremities), Normal Inspection: (All Extremities) General Adult Progress - Results Reviewed by me Xrays/CTs/US Reviewed by me: Yes Discussed with Radiologist: Yes Radiology Findings: Chest x-ray shows some patchy interstitial infiltrates in the bases possibly consistent with heart failure per radiologist. Lab Results Reviewed by Me: Yes Lab Results:: Laboratory Results 3 07/17/18 07/17/18 07/17/18 17:20 17:20 17:20 WBC 8.09 RBC 4.38 Hgb 11.2 L Hct 34.3 L MCV 78.3 L MCH 25.6 L MCHC 32.7 L RDW Std Deviation 49.3 RDW Coeff of Blanca 17.6 H Plt Count 184 MPV 11.0 Immature Gran % (Auto) 0.1 Neut % (Auto) 89.1 H Lymph % (Auto) 4.7 L Young % (Auto) 2.7 L Eos % (Auto) 3.0 Baso % (Auto) 0.4 Immature Gran # (Auto) 0.01 Neut # (Auto) 7.21 Lymph # (Auto) 0.38 Young # (Auto) 0.22 L Eos # (Auto) 0.24 Baso # (Auto) 0.03 WBC Morphology Comment Normal morphology Plt Morphology Comment Normal morphology RBC Morph Comment Normal morphology PT INR Sodium 136 Potassium 4.1 Chloride 108 Carbon Dioxide 23 Anion Gap 5 BUN 20 Creatinine 1.1 BUN/Creatinine Ratio 18.18 Glucose 93 Calculated Osmolality 284.0 Calcium 9.5 Total Bilirubin 0.4 AST 18 ALT 23 Alkaline Phosphatase 70 Troponin I 0.028 C-Reactive Protein 0.6 NT-Pro-B Natriuret Pep 88088 H Total Protein 6.7 Albumin 3.8 Globulin 3.0 Albumin/Globulin Ratio 1.20 L TSH Free T4 3 07/17/18 07/17/18 17:20 17:20 WBC RBC Hgb Hct MCV MCH MCHC RDW Std Deviation RDW Coeff of Blanca Plt Count MPV Immature Gran % (Auto) Neut % (Auto) Lymph % (Auto) Young % (Auto) Eos % (Auto) Baso % (Auto) Immature Gran # (Auto) Neut # (Auto) Lymph # (Auto) Young # (Auto) Eos # (Auto) Baso # (Auto) WBC Morphology Comment Plt Morphology Comment RBC Morph Comment PT 11.9 H INR 1.15 Sodium Potassium Chloride Carbon Dioxide Anion Gap BUN Creatinine BUN/Creatinine Ratio Glucose Calculated Osmolality Calcium Total Bilirubin AST ALT Alkaline Phosphatase Troponin I C-Reactive Protein NT-Pro-B Natriuret Pep Total Protein Albumin Globulin Albumin/Globulin Ratio TSH 7.25 H Free T4 1.22 CBC and BMP: 07/17/18 17:20 07/17/18 17:20 EKG Interpretation:: POSITIVE: Normal Sinus Rhythm, Normal Rate, Normal QRS, Normal ST/T - Patient's Progress MDM / ED Course: The patient's blood pressure was significantly elevated on arrival at 217/102. Her EKG shows sinus bradycardia with no acute ST segment or T-wave changes. An IV was established and the patient received labetalol 20 mg IV. Her blood pressure actually went up to the 220s over 100s. She received a second dose of labetalol as well as amlodipine 5 mg by mouth. Blood pressure remains in the 220s systolic. Blood work is all essentially unremarkable with normal troponin however she does have a markedly elevated BNP at 28,000. Her chest x-ray shows some small interstitial infiltrates in the bases possibly consistent with congestive heart failure per radiologist. The patient's blood pressure remains significantly elevated. Decision was made to admit the patient for further treatment. Dr. Cortes has agreed to admit the patient and the patient and her family are in agreement with this plan. - Consult Counseled: POSITIVE: Patient, Family, RE: Lab Results, RE: Radiology Results, RE : DX, RE: Need for F/U Patient Care Time - Estimated PCT Patient Care Time (In Minutes): 40 Vital Signs - Recent Vital Signs Vital Signs: Vital Signs (Last 8 hours) Temp Pulse Pulse Resp BP Pulse Ox 07/17/18 20:28 56 L 223/92 07/17/18 20:15 55 L 219/90 07/17/18 19:52 57 L 18 211/86 07/17/18 19:08 60 228/92 07/17/18 16:34 97.8 F 58 L 64 18 217/102 94 - VS Reviewed Vital Signs Reviewed: Yes Discharge Clinical Impression: Severe hypertension, Status post mechanical aortic valve replacement CHF (congestive heart failure) Qualifiers: Heart failure type: unspecified Heart failure chronicity: chronic Qualified Code(s): I50.9 - Heart failure, unspecified Discharge Disposition: Admit to Observation Condition: Fair
[2018-07-17] MEDS: DEXLANSOPRAZOLE 60 MG PO SCH (23:45)
[2018-07-18] MEDS ORDERED: Sodium Chloride 0.9% 250 ML PRIMARY IV ONE (02:47)
[2018-07-18] MEDS ORDERED: LEVOTHYROXINE 50 MCG TABLET PO SCH (05:30)
[2018-07-18] MEDS ORDERED: LEVOTHYROXINE 75 MCG TABLET PO SCH (05:30)
[2018-07-18] MEDS: DEXLANSOPRAZOLE 60 MG PO SCH (08:06)
[2018-07-18] MEDS ORDERED: POTASSIUM CHLORIDE 20 MEQ TAB PO SCH (09:00)
[2018-07-18] MEDS ORDERED: Pravastatin 80mg Tab PO SCH (09:00)
[2018-07-18] MEDS ORDERED: FUROSEMIDE 40 MG TABLET PO SCH (09:00)
[2018-07-18] MEDS ORDERED: Oxybutynin ER Tab 5 MG TAB PO SCH (09:00)
[2018-07-18] MEDS ORDERED: METOPROLOL SUCCINATE 50 MG SR 24H TABLET PO SCH (09:00)
[2018-07-18] MEDS ORDERED: LOSARTAN 50 MG TABLET PO SCH (09:00)
[2018-07-18] MEDS ORDERED: CHOLECALCIFEROL 1000 IU TABLET PO SCH (09:00)
[2018-07-18] MEDS ORDERED: VENLAFAXINE XR 75 MG CAP PO SCH (09:00)
[2018-07-18] MEDS ORDERED: Influenza 18-19 Vaccine (6mo+) 60 MCG/0.5 ML SYRINGE IM ONE (13:09)
[2018-07-18] MEDS ORDERED: FUROSEMIDE 10 MG/1 ML - 10 ML IVP ONE (13:09)
[2018-07-18] MEDS ORDERED: POTASSIUM CHLORIDE 20 MEQ TAB PO ONE (13:09)
[2018-07-18 13:10] VITALS: TEMP 98.2
[2018-07-18] MEDS ORDERED: ENOXAPARIN SODIUM 80 MG/0.8 ML SYRINGE SUBCUT SCH (13:15)
[2018-07-18 15:47] VITALS: BP 156/67; RESP 18; O2SAT 93
--- NOTE | 2018-07-18 15:57 | DCSUMMARY ---
Hospitalization Summary Admit Date: 07/17/2018 Discharge Date: 07/18/18 Primary Diagnosis:: hypertensive crisis, resolved Secondary Diagnosis:: Subclinical hypothyroidism. Probably needs more Synthroid replacement. Hospital Course: This is a very pleasant 73-year-old female with a multitude of vascular problems including peripheral arterial disease, ischemic colitis, history of coronary artery disease, amongst other issues, who came in with hypertensive crisis following a colonoscopy earlier yesterday. Her systolics as high as 220s to 240 systolic. She did not have any evidence of end organ damage. She was admitted, placed on nitroglycerin and given IV Lasix that she had some signs of congestive heart failure. She responded very well and her blood pressures by the time of discharge are back into the 150s systolic range. She has not had any symptoms as her blood pressures have come down. She would like to go home. Other issues during the hospital stays that we noticed a TSH was elevated although the free T4 is normal, the TSH is up above 7.5. I've increased her dose to 75 g daily and have suggested she get a TSH and free T4 rechecked in 8 weeks. The thyroid could certainly be a problem in terms of blood pressure management. In terms of her anticoagulation, she was placed on Coumadin but no bridging Lovenox. The patient has had a multitude of bleeding complications in the past , but is high risk in the setting of her mechanical valve to have a stroke. Given better control of the blood pressures, I think that it is reasonable to resume Lovenox bridging until INR is between 2 and 3. I discussed the risks and benefits of this extensively with the patient, her son, and daughter-in- law. They agreed with the plan as done through the hospital stay and at discharge. No complaints of chest pain today, no shortness breath, no nausea or vomiting. She is "ready to go home". She denied any headache, facial droop, weakness on one side or the other, or slurred speech. Assessment and Plan: 1. As per discharge assessments noted 2. Disposition: Patient is discharged home. 3. Condition on discharge, stable and improved. 4. Diet: regular diet 5. Activities: resume normal activities 6. Follow-Up: 1. See Dr. Real on 2. 7. Medications at the Time of Discharge: Home Medications 3 Medication Instructions Recorded Confirmed Type cholecalciferol (vitamin D3) 2,000 2,000 unit PO QDAY cap 08/05/17 05/27/18 History unit capsule denosumab 60 mg/mL subcutaneous 60 mg SUBCUT [id number] #1 ml 08/05/17 05/27/18 History syringe ipratropium-albuterol 0.5 mg-3 3 ml INH Q4H PRN ml 09/03/17 05/27/18 History mg(2.5 mg base)/3 mL nebulization soln potassium chloride ER 10 mEq 20 meq PO QDAY #60 cap 10/15/17 05/27/18 Rx capsule,extended release warfarin 2 mg tablet 4 mg PO QHS #180 tab 12/10/17 05/27/18 Rx dexlansoprazole 60 mg 60 mg PO BID #60 cap 12/26/17 05/27/18 Rx capsule,biphase delayed release oxybutynin chloride ER 5 mg 5 mg PO QDAY #90 tab 01/01/18 05/27/18 Rx tablet,extended release 24 hr furosemide 40 mg tablet 40 mg PO QAM 01/20/18 05/27/18 History triamcinolone acetonide 0.5 % 1 applic TOPICAL QHS #15 g 01/28/18 05/27/18 Rx topical cream losartan 50 mg tablet 50 mg PO QDAY #90 tab 02/17/18 05/27/18 Rx metoprolol succinate ER 50 mg 50 mg PO QDAY #90 tab 02/17/18 05/27/18 Rx tablet,extended release 24 hr mirtazapine 15 mg tablet 7.5 mg PO QHS #45 tab 02/17/18 05/27/18 Rx pravastatin 80 mg tablet 80 mg PO QDAY #90 tab 02/17/18 05/27/18 Rx calcium carbonate 600 mg calcium 600 mg PO QDAY #30 tab 03/30/18 05/27/18 Rx (1,500 mg) tablet venlafaxine ER 150 mg 150 mg PO QDAY #90 cap 06/15/18 Rx capsule,extended release 24 hr hydrocodone 7.5 mg-acetaminophen 1 tab PO Q6H PRN #30 tab 07/13/18 Rx 325 mg tablet Enoxaparin Inj [Lovenox Inj] 70 mg SUBCUT BID@1000,2200 #20 07/18/18 Rx syringe Levothyroxine Sodium [Synthroid] 75 mcg PO DAILY@0530 #90 tab 07/18/18 Rx Exam - Vitals Vital Signs: Vital Signs Temperature 98.2 F Temperature Source Temporal Artery Scan Pulse Rate [Telemetry] 64 Pulse Rate [Apical] 64 Pulse Rate [Pulse Oximeter] 64 Pulse Rate 64 Respiratory Rate 18 Blood Pressure [Left Arm] 156/67 Pulse Ox 93 Oxygen Delivery Method Room Air Height 5 ft 5 in Weight 155 lb 9.6 oz Selected Entries 07/18/18 12:00 07/18/18 12:40 07/18/18 13:00 Blood Pressure [Left Arm] 146/116 172/77 181/78 07/18/18 14:00 07/18/18 15:00 Blood Pressure [Left Arm] 133/69 156/67 - General General Appearance: No Acute Distress, Cooperative - Head Head Exam: Normal Inspection, Normocephalic, Atraumatic - Eye Eye Exam: POSITIVE: No Scleral Icterus - ENT ENT Exam: POSITIVE: Mucous Membranes Moist - Neck Neck Exam: Normal Inspection, No Lymphadenopathy, No Thyromegaly, JVP is not Raised - Respiratory Respiratory Exam: POSITIVE: Clear to Auscultation - Bilaterally, Breathing Non Labored - Cardiovascular Cardiovascular Exam: POSITIVE: RRR, No Murmur, No Gallops, No Rubs, No JVD, Clicks - GI/Abdominal GI/Abdominal Exam: POSITIVE: Normal Bowel Sounds, Non Tender, Non Distended, Soft - Extremities Extremities Exam: POSITIVE: No Clubbing Present, No Edema Present, No Cyanosis Present, Pedal Edema (is better today on exam) - Neurological Neurological Exam: POSITIVE: Alert, Oriented x 3, No Facial Droop, Speech Intact / Clear, Moves All Extremities Equally Additional Neurological Exam Details: able to sit up in bed with no assistance. normal gait - Psychiatric Psychiatric Exam: POSITIVE: Normal Affect, Normal Mood Data Peritnent Studies: Laboratory Results 07/17/18 07/17/18 07/17/18 Range/Units 17:20 17:20 17:20 WBC 8.09 (4.8-10.8) 10^3/uL RBC 4.38 (4.20-5.40) 10^6/uL Hgb 11.2 L (12.0-16.0) g/dL Hct 34.3 L (37.0-47.0) % MCV 78.3 L (81-99) FL MCH 25.6 L (27-31) PG MCHC 32.7 L (33-37) g/dL RDW Std Deviation 49.3 (39-50) fL RDW Coeff of Blanca 17.6 H (11.5-14.5) % Plt Count 184 (140-350) 10*3/uL MPV 11.0 (7.4-12.2) FL Immature Gran % (Auto) 0.1 (0-5) % Neut % (Auto) 89.1 H (50-80) % Lymph % (Auto) 4.7 L (10-50) % Mingo % (Auto) 2.7 L (5-15) % Eos % (Auto) 3.0 (0-8) % Baso % (Auto) 0.4 (0-1) % Immature Gran # (Auto) 0.01 10*3/UL Neut # (Auto) 7.21 10*3/UL Lymph # (Auto) 0.38 10*3/uL Mingo # (Auto) 0.22 L (0.3-0.8) 10*3/UL Eos # (Auto) 0.24 10*3/UL Baso # (Auto) 0.03 10*3/UL WBC Morphology Comment Normal morphology (NORM) Plt Morphology Comment Normal morphology (NORM) RBC Morph Comment Normal morphology (NORM) PT (9.7-11.4) secs INR (0.00-5.90) N/A Sodium 136 (135-145) meq/L Potassium 4.1 (3.8-5.2) meq/L Chloride 108 (98-112) meq/L Carbon Dioxide 23 (23-33) meq/L Anion Gap 5 (5-20) BUN 20 (7-22) mg/dL Creatinine 1.1 (0.50-1.20) mg/dL BUN/Creatinine Ratio 18.18 (6-20) Glucose 93 (78-110) mg/dL Calculated Osmolality 284.0 (267-292) mOsm/kg Calcium 9.5 (8.7-10.7) mg/dL Total Bilirubin 0.4 (0.3-1.2) mg/dL AST 18 (8-39) IU/L ALT 23 (9-52) IU/L Alkaline Phosphatase 70 (38-126) IU/L Troponin I 0.028 (< 0.040) ng/mL C-Reactive Protein 0.6 (0.0-0.9) mg/dL NT-Pro-B Natriuret Pep 43772 H (0-125) PG/ML Total Protein 6.7 (6.1-8.0) g/dL Albumin 3.8 (3.5-4.8) g/dL Globulin 3.0 (2.50-4.10) g/dL Albumin/Globulin Ratio 1.20 L (1.3-2.0) mg/g TSH (0.2700-4.2000) uIU/mL Free T4 (0.93-1.71) ng/dL 07/17/18 07/17/18 Range/Units 17:20 17:20 WBC (4.8-10.8) 10^3/uL RBC (4.20-5.40) 10^6/uL Hgb (12.0-16.0) g/dL Hct (37.0-47.0) % MCV (81-99) FL MCH (27-31) PG MCHC (33-37) g/dL RDW Std Deviation (39-50) fL RDW Coeff of Blanca (11.5-14.5) % Plt Count (140-350) 10*3/uL MPV (7.4-12.2) FL Immature Gran % (Auto) (0-5) % Neut % (Auto) (50-80) % Lymph % (Auto) (10-50) % Mingo % (Auto) (5-15) % Eos % (Auto) (0-8) % Baso % (Auto) (0-1) % Immature Gran # (Auto) 10*3/UL Neut # (Auto) 10*3/UL Lymph # (Auto) 10*3/uL Mingo # (Auto) (0.3-0.8) 10*3/UL Eos # (Auto) 10*3/UL Baso # (Auto) 10*3/UL WBC Morphology Comment (NORM) Plt Morphology Comment (NORM) RBC Morph Comment (NORM) PT 11.9 H (9.7-11.4) secs INR 1.15 (0.00-5.90) N/A Sodium (135-145) meq/L Potassium (3.8-5.2) meq/L Chloride (98-112) meq/L Carbon Dioxide (23-33) meq/L Anion Gap (5-20) BUN (7-22) mg/dL Creatinine (0.50-1.20) mg/dL BUN/Creatinine Ratio (6-20) Glucose (78-110) mg/dL Calculated Osmolality (267-292) mOsm/kg Calcium (8.7-10.7) mg/dL Total Bilirubin (0.3-1.2) mg/dL AST (8-39) IU/L ALT (9-52) IU/L Alkaline Phosphatase (38-126) IU/L Troponin I (< 0.040) ng/mL C-Reactive Protein (0.0-0.9) mg/dL NT-Pro-B Natriuret Pep (0-125) PG/ML Total Protein (6.1-8.0) g/dL Albumin (3.5-4.8) g/dL Globulin (2.50-4.10) g/dL Albumin/Globulin Ratio (1.3-2.0) mg/g TSH 7.25 H (0.2700-4.2000) uIU/mL Free T4 1.22 (0.93-1.71) ng/dL Procedures: [address] [facility] [facility] [place] [id number] PH: DD: [phone] FAX: [phone] ~DIAGNOSTIC IMAGING REPORT~ Patient: Jacklyn Yancey : 1945 Sex: F Age: 73 Exam Name: XR CXR 1VW Exam Date: 07/17/18 Report # : [id number] CPT Code: 98285 EMR/MR #: [id number] Ordering: JED VALLE Admiting: Primary: Km Real MD Attending: Signed Comparison: PA/LAT chest x-ray 03/31/2018. Findings: A single portable frontal view of the chest is submitted. There is an accessed left chest Port-A-Cath with the tip projecting over the superior vena cava. Images demonstrate patchy bibasilar opacities that could represent atelectasis versus early airspace disease. There is no large pneumothorax or pleural effusion. The patient is status post median sternotomy and aortic valve replacement. The cardiomediastinal silhouette is enlarged with increased pulmonary vasculature, findings associated with pulmonary edema in the setting of heart failure. Atheromatous calcifications are noted in the arch of the tortuous thoracic aorta. A rounded density projects over the lower mediastinum, most likely representing a hiatal hernia. The osseous structures are not significantly changed with radiopaque densities projecting over the midthoracic spine likely associated with vertebroplasty. Impression: 1. Patchy bibasilar opacities could represent atelectasis versus early airspace disease in the correct clinical setting. Repeat imaging 6 weeks following completion of therapy is recommended in order to ensure resolution. 2. There are findings that can be seen in the setting of pulmonary edema secondary to heart failure. Dictated By: 07/17/18 1732 SELENE LOPEZ MD. Signed By: 07/17/18 1743 SELENE LOPEZ MD. Patient Problems - Patient Problem List (1) Hypertensive crisis Current Visit: Yes Status: Acute Code(s): I16.9 - Hypertensive crisis, unspecified Category: Medical (2) Hypertensive heart failure Current Visit: Yes Status: Acute Code(s): I11.0 - Hypertensive heart disease with heart failure Category: Medical (3) Coronary artery disease Current Visit: Yes Status: Acute Code(s): I25.10 - Atherosclerotic heart disease of sun'aq coronary artery without angina pectoris Qualifiers: Coronary Disease-Associated Artery/Lesion type: bypass graft, autologous artery Associated angina: without angina Qualified Code(s): I25.810 - Atherosclerosis of coronary artery bypass graft(s) without angina pectoris Category: Medical (4) H/O aortic valve replacement Current Visit: Yes Status: Chronic Onset Date: 07/20/15 Code(s): Z95.2 - Presence of prosthetic heart valve Category: Medical (5) Benign essential hypertension Current Visit: Yes Status: Chronic Onset Date: 09/26/14 Code(s): I10 - Essential (primary) hypertension Category: Medical (6) Acquired hypothyroidism Current Visit: Yes Status: Chronic Onset Date: 03/12/17 Code(s): E03.9 - Hypothyroidism, unspecified Category: Medical (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
[2018-07-18] MEDS ORDERED: HEPARIN 500 UNIT/5 ML SYRINGE FOR CENTRAL LINE IVP ONE (16:01)
== END 2018-07-18 16:05 | disposition home or self-care (01) ==
LOC: ER 16:34 → MED/SURG 16:34 → ICU 20:56 → MED/SURG 21:00
PROVIDERS: ADMIT Family Medicine; ATTEND Family Medicine

== ENCOUNTER 2018-10-10 12:31 | Inpatient (IN) ==
[2018-10-10] MEDS ORDERED: IPRATROPIUM/ALBUTEROL SULFATE 3 ML NEB NEB ONE (13:02)
[2018-10-10] MEDS ORDERED: Sodium Chloride 0.9% 1,000 ML PRIMARY IV ONE (13:02)
[2018-10-10] MEDS ORDERED: ONDANSETRON 4 MG/2 ML VIAL IVP ONE (13:07)
--- NOTE | 2018-10-10 13:07 | EKG ---
[address] [place] [address] Measurements Intervals [place] Rate: 95 P: 61 [place]: 204 QRS: -11 QRSD: 101 T: 59 QT: 358 QTc: 410 Interpretive Statements SINUS RHYTHM NONSPECIFIC ST & T-WAVE ABNORMALITY LEFT VENTRICULAR HYPERTROPHY Compared to ECG 07/17/2018 18:05:37 T-wave abnormality now present Sinus bradycardia no longer present Electronically Signed On 10-11-18 14:27:04 [facility] by Maxime Burgess [email or web address]
[2018-10-10] MEDS ORDERED: ONDANSETRON 4 MG/2 ML VIAL ONE (13:15)
[2018-10-10 13:20] LABS: BASOPHILS # (AUTO) 0.04 10*3/UL; BASOPHILS % (AUTO) 0.2 % (0-1); EOSINOPHILS # (AUTO) 0.02 10*3/UL; EOSINOPHILS % (AUTO) 0.1 % (0-8); Hemoglobin [HGB] 11.4 g/dL (12.0-16.0); LYMPHOCYTES # (AUTO) 0.23 10*3/uL; MEAN CORPUSCULAR HEMOGLOBIN 24.9 PG (27-31); MEAN CORPUSCULAR HGB CONC 31.7 g/dL (33-37); MEAN CORPUSCULAR VOLUME 78.8 FL (81-99); MEAN PLATELET VOLUME 11.9 FL (7.4-12.2); MONOCYTES # (AUTO) 0.48 10*3/UL (0.3-0.8); MONOCYTES % (AUTO) 2.1 % (5-15); NEUTROPHILS # (AUTO) 22.52 10*3/UL; NEUTROPHILS % (AUTO) 96.4 % (50-80); RED BLOOD COUNT 4.57 10^6/uL (4.20-5.40)
[2018-10-10 13:27] LABS: VENOUS PH 7.38 (7.32-7.42)
[2018-10-10 13:34] LABS: BLOOD UREA NITROGEN 29 mg/dL (7-22); BUN/CREATININE RATIO 26.36 (6-20); PLATELET MORPHOLOGY COMMENT NORMAL MORPHOLOGY (NORM); RBC MORPHOLOGY COMMENT NORMAL MORPHOLOGY (NORM); SERUM ALBUMIN 4.4 g/dL (3.5-4.8); WBC MORPHOLOGY COMMENT NORMAL MORPHOLOGY (NORM)
--- NOTE | 2018-10-10 14:09 | DI ---
EXAM: XR Chest, 2 Views CLINICAL HISTORY: ITS.REASON dyspnea Physician Notes: Tech Comments: TECHNIQUE: Frontal and lateral views of the chest. COMPARISON: Chest radiograph on 03/31/2018 FINDINGS: Hardware: Left-sided Port-A-Cath terminates in the region of the SVC. Lungs/pleura: Interstitial and hazy opacities throughout the lungs. No pleural effusion or pneumothorax. Heart/mediastinum: Stable mild enlargement of the cardiomediastinal silhouette. Atherosclerotic calcifications in the aorta. Median sternotomy and CABG changes. Prosthetic heart valve. Soft tissues: Unremarkable. Bones: Stable kyphoplasty changes in the midthoracic spine. Stable anterior wedging of the T12 vertebral body. Degenerative changes of the acromioclavicular joints. Osteopenia. Upper abdomen: Aortic stent graft. IMPRESSION: Interstitial and hazy opacities throughout the lungs may represent pulmonary edema and pulmonary vasculature congestion. Infectious/ inflammatory process is not excluded.
--- NOTE | 2018-10-10 14:11 | DI ---
EXAM: XR Abdomen, 2 Views CLINICAL HISTORY: ITS.REASON vomiting Physician Notes: Tech Comments: TECHNIQUE: Frontal view of the abdomen/pelvis with upright view of the abdomen. COMPARISON: Abdominal radiograph on 09/24/2018 FINDINGS: Hardware: None. Abdomen: Nonspecific bowel gas pattern. Gas-filled bowel in the right lower quadrant. Otherwise paucity of bowel gas. Small amount of gas and stool in the rectum. No free air. Presumed phleboliths in the pelvis. Bones: Kyphoplasty changes in the midthoracic spine. Soft tissues: Normal. Lower chest: Patchy opacities. Median sternotomy and CABG changes. Prostatic heart valve. Other: Aortobiiliac stent graft. IMPRESSION: Nonspecific bowel gas pattern with gas-filled bowel in the right lower quadrant and otherwise relative paucity of bowel gas. Small amount of gas and stool in the rectum. No free air.
[2018-10-10] MEDS ORDERED: FUROSEMIDE 10 MG/1 ML - 4 ML IVP ONE ×2 (14:12→19:00)
[2018-10-10] MEDS ORDERED: cefTRIAXone Inj 1 GM in Sodium Chloride 0.9% 100 ML IV ONE (14:13)
[2018-10-10] MEDS ORDERED: LIDOCAINE HCL 2 % 10 ML JELLY URO-JECT TOPICAL PRN (14:27)
[2018-10-10 15:13] LABS: BILIRUBIN,URINE NEGATIVE (NEG); CLARITY,URINE CLEAR (CLEAR); COLOR,URINE YELLOW (Y); GLUCOSE, URINE (UA) NEGATIVE (NEG); OCCULT BLOOD,URINE LARGE (NEG); PH,URINE 5.5 (5.0-8.5); PROTEIN,URINE 100 mg/dl (NEG); UROBILINOGEN,URINE 0.2 EU/dL (0.2)
[2018-10-10 15:18] LABS: RBC,URINE 15-20 /hpf; SQUAMOUS EPITHELIAL CELL,UR RARE; URINE SAMPLE TYPE CATH SPECIMEN
[2018-10-10 15:19] LABS: URINE CASTS FEW
--- NOTE | 2018-10-10 15:30 | PDOC ---
HPI - History of Present Illness Date of Service: 10/10/18 Time of Service: 16:30 Chief Complaint: Shortness of breath and vomiting of one day duration History of Present Illness: This is a 73 years old female with medical history significant for history of coronary artery disease with previous CABG, history of previous aortic valve replacement, history of respiratory distress syndrome with respiratory failure requiring intubation secondary to influenza, history of ischemic colitis that required bowel resection and takedown in August, history also of PEG tube that was removed about 2 weeks ago who came into the hospital with history of shortness of breath that started last night it is exertional and also with laying flat. She did report also vomiting she vomited multiple times. Because of the vomiting and shortness of breath she came into the ER. Evaluation revealed the interstitial and hazy opacities in both lungs suspicious for inflammation/edema she was given Lasix, antibiotics were given also after taken blood culture. Patient was hypoxic when she came into the ER. She feels better now compared to when she came in. She denied chest pain, denying abdominal pain and no diarrhea. She said she was on Lasix and was discontinued about 2 weeks ago. Past Medical History Medical History: 1. GI bleed probably secondary to AV malformations, status post push enteroscopy results from [facility] which was negative. 2. Hypertension. 3. Hypothyroidism. 4. Coronary artery disease status post CABG. 5. Aortic valve, mechanical. 6. Long-term anticoagulation due to mechanical valve. 7. Severe peripheral arterial disease. 8. Vitamin D deficiency. 9. Osteoporosis. 10. GERD with history of esophagitis. 11. Depression, well controlled. 12. Hypercholesterolemia. 13. History of stroke, presumed related to cardioembolic source when off anticoagulation waiting for a left carotid stent. 14. Respiratory failure secondary to pneumonia and Flu in 08/2017 needed intubation was tranferred to [facility]. 15. History of rectus sheath hematoma August 2017 was transferred to [facility] needed embolization. 16. Ischemic colitis status post bowel resection with colostomy and reversal August 2018. 17. Claudication with plans for peripheral arterial stents to be done by cardiology in the near future. 18. Surgery for hiatal hernia apparently she had a PEG tube to keep the stomach and position and this was removed 2 weeks ago. Surgical History: 1. Multiple colonoscopies and EGDs. 2. Push enteroscopy done in [place]. 3. Angioplasty of arteries and veins in lower extremities. 4. CABG in 2003. 5. Mechanical aortic valve in 2003. 6. Right arm surgeries. 7. Endovascular abdominal aortic aneurysm repair. 8. Right carotid endarterectomy. 9. Left carotid stent placement. 10. Total knee replacement. 11. Appendectomy. 12. Hysterectomy and bilateral salpingo- oophorectomy. 13. Tubal ligation. 14. Iliac aneurysm repair. 15. Cataract surgery. 16. Embolectomy of the abdominis rectus bleed. 17. Ischemic colitis status post bowel resection and colostomy placement Pertinent Family History: She states she does not know her mother's history she did not really live with her. Her father of coronary artery disease complications and dementia. Past Social History: Quit smoking years ago. Lives alone, , has children that are described as healthy. Does not drink alcohol. Tobacco Use: Current Every Day Smoker Do you dip or chew tobacco: No In the Past 12 Months, Have Used or Abuse Any of the Following Substance: None Medication / Allergies Home Medications: Home Medications Medication Instructions Recorded Confirmed Type cholecalciferol (vitamin D3) 2,000 2,000 unit PO QDAY cap 08/05/17 09/24/18 History unit capsule denosumab 60 mg/mL subcutaneous 60 mg SUBCUT [id number] #1 ml 08/05/17 09/24/18 History syringe warfarin 2 mg tablet 4 mg PO QHS #180 tab 12/10/17 09/24/18 Rx oxybutynin chloride ER 5 mg 5 mg PO QDAY #90 tab 01/01/18 09/24/18 Rx tablet,extended release 24 hr mirtazapine 15 mg tablet 7.5 mg PO QHS #45 tab 02/17/18 09/24/18 Rx calcium carbonate 600 mg calcium 600 mg PO QDAY #30 tab 03/30/18 09/24/18 Rx (1,500 mg) tablet venlafaxine ER 150 mg 150 mg PO QDAY #90 cap 06/15/18 09/24/18 Rx capsule,extended release 24 hr losartan 50 mg tablet 50 mg PO QDAY #90 tab 07/20/18 09/24/18 Rx spironolactone 25 mg tablet 25 mg PO QDAY #30 tab 07/22/18 09/24/18 Rx dexlansoprazole 60 mg 60 mg PO BID #60 cap 08/04/18 09/24/18 Rx capsule,biphase delayed release metoprolol succinate ER 50 mg 75 mg PO BID #90 tab 08/20/18 09/24/18 Rx tablet,extended release 24 hr doxycycline hyclate 100 mg tablet 100 mg PO BID #14 tab 09/15/18 09/24/18 Rx furosemide 40 mg tablet 40 mg PO QDAY PRN #30 tab 09/15/18 09/24/18 Rx levothyroxine 75 mcg tablet 75 mcg PO DAILY@0530 #90 tab 09/15/18 09/24/18 Rx potassium chloride ER 10 mEq 20 meq PO QDAY PRN #60 cap 09/15/18 09/24/18 Rx capsule,extended release rosuvastatin 40 mg tablet 40 mg PO QDAY #90 tab 09/15/18 09/24/18 Rx nitrofurantoin 100 mg PO BID #14 cap 09/17/18 09/24/18 Rx monohydrate/macrocrystals 100 mg capsule hydrocodone 7.5 mg-acetaminophen 1 tab PO Q6H PRN #90 tab 09/18/18 09/24/18 Rx 325 mg tablet Ondansetron HCl [Zofran] 4 mg PO Q6H PRN PRN #15 tab 09/24/18 Rx Allergies/Adverse Reactions: Allergies Allergy/AdvReac Type Severity Reaction Status Date / Time kiwi Allergy Intermediate SWELLING Verified 10/11/18 06:35 No Known Drug Allergies Allergy none Verified 10/11/18 06:35 avacado Allergy Intermediate VOMITING Uncoded 10/10/18 12:31 cucumber Allergy Intermediate VOMITING Uncoded 10/10/18 12:31 Review of Systems - Review of Systems All Systems: Reviewed & No Additional Complaints Except as Stated Exam - Vitals Vital Signs: Vital Signs Temperature 97.0 F Temperature Source Temporal Artery Scan Pulse Rate [Telemetry] 105 Pulse Rate 98 Respiratory Rate 18 Blood Pressure [Left Arm] 169/92 Pulse Ox 90 Oxygen Delivery Method Room Air Height 5 ft 5 in Weight 146 lb - General General Appearance: No Acute Distress, Cooperative - Head Head Exam: Normal Inspection - Eye Eye Exam: POSITIVE: Normal Appearance - ENT ENT Exam: POSITIVE: Normal Exam - Neck Neck Exam: Normal Inspection - Respiratory Additional Respiratory Exam Details: Crackles heard at the lung bases - Cardiovascular Cardiovascular Exam: POSITIVE: RRR Additional Cardiovascular Details: Prosthetic heart sound. - GI/Abdominal GI/Abdominal Exam: POSITIVE: Normal Bowel Sounds, Non Tender, Non Distended, Soft, No Organomegaly - Rectal Rectal Exam: POSITIVE: Deferred - External Exam: POSITIVE: Deferred - Extremities Extremities Exam: POSITIVE: Normal Inspection - Back Back Exam: POSITIVE: Normal Inspection Results - Labs CBC and BMP: 10/11/18 06:25 10/11/18 06:25 - EKG Data -: EKG Interpreted by Me Rate: Normal EKG Shows Normal: Sinus Rhythm (EKG showed sinus rhythm) - EKG Data EKG Interpretation: Other (EKG showed sinus rhythm with nonspecific changes) - Imaging Status: Report Reviewed by Me (Chest X ray Interstitial and hazy opacities throughout the lungs may represent pulmonary edema and pulmonary vasculature congestion. Infectious/ inflammatory process is not excluded.) Assessment and Plan - Patient Problems (1) CHF (congestive heart failure) Current Visit: Yes Status: Acute Comment: I suspect that her symptoms are due the CHF exacerbation, she received Lasix, will give her another dosage of Lasix tonight. Whether she has an infection is not clear. She did receive Rocephin well continue until we see cultures and see her progress. We'll give her also Zithromax. Will send r espiratory panel. I'm inclined to think that though this is more congestive heart failure exacerbation. Code(s): I50.9 - Heart failure, unspecified (2) H/O prosthetic aortic valve replacement Current Visit: Yes Status: Acute Comment: She is on Coumadin will continue to watch her INR. Code(s): Z95.2 - Presence of prosthetic heart valve (3) Hypertension Current Visit: Yes Status: Acute Comment: Continue her previous medications. Code(s): I10 - Essential (primary) hypertension (4) Hypothyroidism Current Visit: Yes Status: Acute Comment: Same med Code(s): E03.9 - Hypothyroidism, unspecified (5) Elevated troponin Current Visit: Yes Status: Acute Comment: We repea it likely secondary to the congestive heart failure itself. She is denying chest pain. No acute changes in her EKG. Code(s): R74.8 - Abnormal levels of other serum enzymes
[2018-10-10] MEDS ORDERED: LIDOCAINE W/ SODIUM BICARB 0.5 ML SYR SUBD PRN (16:35)
[2018-10-10] MEDS ORDERED: ACETAMINOPHEN 325 MG TABLET PO PRN (16:35)
[2018-10-10] MEDS ORDERED: AZITHROMYCIN 250 MG TABLET PO ONE (17:00)
--- NOTE | 2018-10-10 17:19 | PDOC ---
Dyspnea HPI - General Chief Complaint: Dyspnea Stated Complaint: dyspnea since 0100 today Date Seen by Provider: 10/10/18 Time Seen by Provider: 12:40 Source: POSITIVE: Patient, Other (Son and daughter) Exam Limitations: POSITIVE: No limitations Treatment Prior to Arrival: REPORTS: None Nurse's Notes Reviewed & Considered: Yes - History of Present Illness Initial Comments: The patient is a 73-year-old female who is brought to the emergency room by her son. Patient states that since around 1 AM this morning she has been short of breath. She also states that she's had some nausea and vomiting since around 1300 yesterday. Patient is supposed to be on home oxygen , 2 L/m on an as necessary basis. She states she is not using her oxygen for the past 3 days. Patient is on warfarin and has had a cardiac valve replacement. In February 2018 she had necrosis of a segment of her colon which was excised and a colostomy was placed; the colostomy was reversed in August. Patient has a history of mason ry artery disease and has had a coronary artery bypass. Patient has had congestive heart failure in the past and she has a history of hypertension. Patient is on warfarin, 4 mg daily. Patient states that she was on Lasix for her congestive heart failure but apparently while she was on this medication her renal functions elevated, so she was told by her nutrition coordinator to "just take Lasix as needed". History of COPD. She continues to smoke about 5 or 6 cigarettes per day. Patient does not have any chest pain. No cough. No pleurisy. No GI or symptoms. No neurologic symptoms. No rashes or skin changes. Patient states that she has been intubated in the past for congestive heart failure and "bronchitis". Patient states that she does not want to be intubated and that she does not want cardiopulmonary resuscitation or defibrillation. Body Location Affected: REPORTS: Chest (Shortness of breath) Timing: REPORTS: Abrupt, Getting Worse Duration: <24 hours Severity: Moderate Quality: REPORTS: Other (Patient denies any chest or other pain) Initiating Event: REPORTS: Out of Medications (Patient discontinued Lasix recently) Context: REPORTS: Sleep (Onset while trying to sleep) Exacerbated By: REPORTS: Exertion, Laying Flat Associated Symptoms: REPORTS: Ankle Swelling, Leg Swelling. DENIES: Fever, Chills, Sweating, Chest Pain, Chest Discomfort, Left Chest, Right Chest, Central Chest, Chest Heaviness, Chest Tightness, Painful Breathing, Radiation to Back, R adiation to Jaw, Radiation to Arm, Bloody Cough, Productive Cough, Heart Racing, Leg Pain, Calf Pain, Dizziness, Light-Headedness, Anxiety, Tingling - Hands, Tingling - Face, Muscle Spasms - Hands, Muscle Spasms - Feet Similar Symptoms Previously: Yes Recently seen/treated/hospitalized: No Any Prior Injuries Related to Current Complaint?: No - Patient Home Medications Home Medications: Home Medications cholecalciferol (vitamin D3) 2,000 unit capsule 2,000 unit PO QDAY cap 08/05/17 denosumab 60 mg/mL subcutaneous syringe 60 mg SUBCUT [id number] #1 ml 08/05/17 warfarin 2 mg tablet 4 mg PO QHS #180 tab 12/10/17 oxybutynin chloride ER 5 mg tablet,extended release 24 hr 5 mg PO QDAY #90 tab 01/01/18 mirtazapine 15 mg tablet 7.5 mg PO QHS #45 tab 02/17/18 calcium carbonate 600 mg calcium (1,500 mg) tablet 600 mg PO QDAY #30 tab 03/30/18 venlafaxine ER 150 mg capsule,extended release 24 hr 150 mg PO QDAY #90 cap 06/15/18 losartan 50 mg tablet 50 mg PO QDAY #90 tab 07/20/18 spironolactone 25 mg tablet 25 mg PO QDAY #30 tab 07/22/18 dexlansoprazole 60 mg capsule,biphase delayed release 60 mg PO BID #60 cap 08/04/18 metoprolol succinate ER 50 mg tablet,extended release 24 hr 75 mg PO BID #90 tab 08/20/18 doxycycline hyclate 100 mg tablet 100 mg PO BID #14 tab 09/15/18 furosemide 40 mg tablet 40 mg PO QDAY PRN #30 tab 09/15/18 levothyroxine 75 mcg tablet 75 mcg PO DAILY@0530 #90 tab 09/15/18 potassium chloride ER 10 mEq capsule,extended release 20 meq PO QDAY PRN #60 cap 09/15/18 rosuvastatin 40 mg tablet 40 mg PO QDAY #90 tab 09/15/18 nitrofurantoin monohydrate/macrocrystals 100 mg capsule 100 mg PO BID #14 cap 12/13/18 hydrocodone 7.5 mg-acetaminophen 325 mg tablet 1 tab PO Q6H PRN #90 tab 09/18/18 Ondansetron HCl [Zofran] 4 mg PO Q6H PRN PRN #15 tab 09/24/18 - Patient Allergies Allergies/Adverse Reactions: Allergies Allergy/AdvReac Type Severity Reaction Status Date / Time kiwi Allergy Intermediate SWELLING Verified 10/10/18 12:31 No Known Drug Allergies Allergy none Verified 10/10/18 12:31 avacado Allergy Intermediate VOMITING Uncoded 10/10/18 12:31 cucumber Allergy Intermediate VOMITING Uncoded 10/10/18 12:31 Past Medical History - heen HEENT History: Hard of Hearing, Dentures/Partials Additional HEENT History: 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 Reading glasses. Cardiovascular History: Hypertension, CHF, Previous SD, Hyperlipidemia Additional Cardiovasular History: stents to left carotid, bilat carotid angioplasty, 4 bypasses Respiratory History: Pneumonia, Snoring Additional Respiratory History: Beginning stages of COPD Gastrointestinal History: GERD, GI Bleed, Hiatal Hernia, Colostomy Genitourinary History: Denies History Endocrine History: Hypothyroidism Musculoskeletal History: Osteoporosis, Back Pain, Back Injury Prosthesis or Implant: Yes (stents, Right TKA, mechanical heart valve) Additional Musculoskeletal History: Upper and lower back surgery. Leg pains Neurological History: CVA Additional Neurological History: HX OF STROKE- JANUARY 2017 Blood Disorders: Anemia Psychiatric History: Depression History of Sexually Transmitted Diseases: No Female Reproductive History: Denies History Obstetrical History: Denies History Cancer History: Denies History In Past Year Been Physically Harmed or Verbally Threatened: No History of MDRO: No History of Other Communicable Diseases: No Tobacco Use: Current Every Day Smoker Alcohol Use: None In the Past 12 Months, Have Used or Abuse Any Substance: None Previous Surgical History: Yes Type / Date of Surgery: appendectomy, ectopic , hysterectomy. R TKA, back surgeries, carotid endarterectomy/ laser cataract / CABG /AAA repair, STENT PLACEMENT- 1. open heart - AORTIC VALVE REPLACEMENT AAA REPAIRED/ STENTED 4 VESSEL CABG, CAROTIDS DONE, COLONOSCOPY, EVADED HEART. Bilat cubital tunnel Anesthesia Reactions: No (PONV) Malignant Hyperthermia: No Significant Family History: Cancer Past Medical History Reviewed: Reviewed - No Changes ROS - Limitations ROS Limitations: No Limitations Constitution: REPORTS: Denies Symptoms, Weakness Cardiovascular: REPORTS: Edema (Increase in pedal edema) Respiratory: REPORTS: Shortness Of Breath Neurological: REPORTS: Denies Neuro Symptoms Gastrointestinal: REPORTS: Denies GI Symptoms Endocrine: REPORTS: Denies Symptoms Musculoskeletal: REPORTS: Denies MS Symptoms Genitourinary: REPORTS: Denies Symptoms Eyes: REPORTS: Denies Symptoms ENT: REPORTS: Denies Symptoms Skin: REPORTS: Denies Skin Symptoms Lympathic: REPORTS: Denies Lympathic Symptoms Immunologic: POSITIVE: Denies Symptoms Psychiatric: POSITIVE: Denies Psych Symptoms Dyspnea Physical Exam - General Appearance General Appearance: REPORTS: Alert, Cooperative, No Evidence of Trauma, Mild Distress (With mild respiratory distress). DENIES: No Acute Distress - HEENT HEENT: POSITIVE: Head Inspection Nml, Eyes Inspection Nml, Ears Inspection Nml, Nose Inspection Nml, Oral/Dental Inspect. Nml, Pharynx Inspect. Nml, PERRL, EOMI, Other (Jugulovenous distention) - Neck Neck: REPORTS: JVD Present - Respiratory Respiratory: REPORTS: No Pleuritic Chest Pain, Speaks Full Sentences, No Pain on Inspiration, Rales (Rales both posterior lung roman). DENIES: No Respiratory Distress, Breath Sounds Normal, Respiratory Distress ([id number]), Fatigue, Wheezes, Accessory Muscle Use, Retractions, Splinting, Dull on Percu ssion, Decreased Air Movement, Chest Wall Tenderness, Speaks Broken Sentences - Cardiovascular Cardiovascular: REPORTS: Regular Rate and Rhythm, Heart Sounds Normal, Equal Pulses, Strong Pulses, No Murmur, No Gallop, No Friction Rub, S3 Gallop. DENIES: No JVD Peripheral Pulses: Radial (R): 2+, Radial (L): 2+ - Abdomen Abdomen: Soft: (All Quadrants), Normal Bowel Sounds: (All Quadrants), Denies Tenderness: (All Quadrants), No Splenomegaly: (All Quadrants), No Hepatomegaly: (All Quadrants), No Guarding: (All Quadrants), No Rebound: (All Quadrants), No Palpable Pulse: (All Quadrants), No Palpabale Mass: (All Quadrants), No Distention: (All Quadrants), No Rigidity: (All Quadrants) - Skin Skin: REPORTS: Intact, Normal For Race, Warm, Dry, No Rash - Extremities Extremity: Non-Tender: (All Extremities), Normal ROM: (All Extremities), Normal Inspection: (All Extremities), Pelvis Stable: (All Extremities), Normal Tendon Exam: (All Extremities), Edema / Swelling: (LLE), (RLE) (some pedal edema) - Neurological / Psychological Neurological: POSITIVE: Affect Apporpriate, Oriented X3, press tender incendiary grenade Normal As Tested, Motor Normal, Sensation Normal Images - Complete Complete: 1 - Mild pedal edema Dyspnea Progress - Results Reviewed by me Xrays/CTs/US Reviewed by me: Yes Discussed with Radiologist: Yes Radiology Findings: Chest x-ray shows perihilar infiltrates most compatible with congestive heart failure; atypical pneumonia not ruled out. Radiographic evidence of previous coronary artery bypass graft Lab Results Reviewed by Me: Yes (BNP markedly elevated; troponin mildly elevate d) CBC and BMP: 10/10/18 13:00 10/10/18 13:00 Lab Results:: Laboratory Results 10/10/18 10/10/18 10/10/18 13:00 13:00 13:00 WBC RBC Hgb Hct MCV MCH MCHC RDW Std Deviation RDW Coeff of Blanca Plt Count MPV Immature Gran % (Auto) Neut % (Auto) Lymph % (Auto) [place] % (Auto) Eos % (Auto) Baso % (Auto) Immature Gran # (Auto) Neut # (Auto) Lymph # (Auto) [place] # (Auto) Eos # (Auto) Baso # (Auto) WBC Morphology Comment Plt Morphology Comment RBC Morph Comment PT 20.7 H INR 2.15 D-Dimer VBG pH VBG pCO2 VBG HCO3 VBG Base Excess Sodium Potassium Chloride Carbon Dioxide Anion Gap BUN Creatinine BUN/Creatinine Ratio Glucose Calculated Osmolality Lactic Acid Calcium Total Bilirubin AST ALT Alkaline Phosphatase Troponin I 0.113 H C-Reactive Protein 3.6 H NT-Pro-B Natriuret Pep 01187 H Total Protein Albumin Globulin Albumin/Globulin Ratio Ur Collection Type Urine Color Urine Clarity Urine pH Ur Specific [place] Urine Protein Urine Glucose (UA) Urine Ketones Urine Occult Blood Urine Nitrate Urine Bilirubin Urine Urobilinogen Ur Leukocyte Esterase Urine RBC Urine WBC Ur Squamous Epith Cells Ur Renal Epithelial Cell Urine Crystals Urine Bacteria Urine Casts Urine Mucus Urine Trichomonas Urine Yeast Ur Culture Indicated? 10/10/18 10/10/18 10/10/18 13:00 13:00 13:00 WBC 23.34 H RBC 4.57 Hgb 11.4 L Hct 36.0 L MCV 78.8 L MCH 24.9 L MCHC 31.7 L RDW Std Deviation 48.2 RDW Coeff of Blanca 17.0 H Plt Count 286 MPV 11.9 Immature Gran % (Auto) 0.2 Neut % (Auto) 96.4 H Lymph % (Auto) 1.0 L [place] % (Auto) 2.1 L Eos % (Auto) 0.1 Baso % (Auto) 0.2 Immature Gran # (Auto) 0.05 Neut # (Auto) 22.52 Lymph # (Auto) 0.23 [place] # (Auto) 0.48 Eos # (Auto) 0.02 Baso # (Auto) 0.04 WBC Morphology Comment Normal morphology Plt Morphology Comment Normal morphology RBC Morph Comment Normal morphology PT INR D-Dimer 3.76 H VBG pH VBG pCO2 VBG HCO3 VBG Base Excess Sodium 138 Potassium 4.4 Chloride 106 Carbon Dioxide 24 Anion Gap 8 BUN 29 H Creatinine 1.1 BUN/Creatinine Ratio 26.36 H Glucose 168 H Calculated Osmolality 295.0 H Lactic Acid Calcium 9.6 Total Bilirubin 1.0 AST 39 ALT 24 Alkaline Phosphatase 63 Troponin I C-Reactive Protein NT-Pro-B Natriuret Pep Total Protein 7.4 Albumin 4.4 Globulin 3.0 Albumin/Globulin Ratio 1.40 Ur Collection Type Urine Color Urine Clarity Urine pH Ur Specific [place] Urine Protein Urine Glucose (UA) Urine Ketones Urine Occult Blood Urine Nitrate Urine Bilirubin Urine Urobilinogen Ur Leukocyte Esterase Urine RBC Urine WBC Ur Squamous Epith Cells Ur Renal Epithelial Cell Urine Crystals Urine Bacteria Urine Casts Urine Mucus Urine Trichomonas Urine Yeast Ur Culture Indicated? 10/10/18 10/10/18 10/10/18 13:00 13:16 14:50 WBC RBC Hgb Hct MCV MCH MCHC RDW Std Deviation RDW Coeff of Blanca Plt Count MPV Immature Gran % (Auto) Neut % (Auto) Lymph % (Auto) [place] % (Auto) Eos % (Auto) Baso % (Auto) Immature Gran # (Auto) Neut # (Auto) Lymph # (Auto) [place] # (Auto) Eos # (Auto) Baso # (Auto) WBC Morphology Comment Plt Morphology Comment RBC Morph Comment PT INR D-Dimer VBG pH 7.38 VBG pCO2 39 L VBG HCO3 23 VBG Base Excess -2 Sodium Potassium Chloride Carbon Dioxide Anion Gap BUN Creatinine BUN/Creatinine Ratio Glucose Calculated Osmolality Lactic Acid 1.8 Calcium Total Bilirubin AST ALT Alkaline Phosphatase Troponin I C-Reactive Protein NT-Pro-B Natriuret Pep Total Protein Albumin Globulin Albumin/Globulin Ratio Ur Collection Type Cath specimen Urine Color Yellow Urine Clarity Clear Urine pH 5.5 Ur Specific [place] 1.025 Urine Protein 100 A Urine Glucose (UA) Negative Urine Ketones Negative Urine Occult Blood Large H Urine Nitrate Negative Urine Bilirubin Negative Urine Urobilinogen 0.2 Ur Leukocyte Esterase Negative Urine RBC 15-20 Urine WBC None Ur Squamous Epith Cells Rare Ur Renal Epithelial Cell None Urine Crystals None Urine Bacteria None Urine Casts Few Urine Mucus Moderate Urine Trichomonas None Urine Yeast None Ur Culture Indicated? Culture not set EKG Interpreted/Reviewed By Me:: Yes (left ventricular hypertrophy by voltage criteria; borderline ST depression ) EKG Interpretation:: POSITIVE: Normal Sinus Rhythm, Normal Rate, Normal Intervals, Normal QRS. NEGATIVE: Normal [place] (Left ventricular hypertrophy by voltage criteria), Normal ST/T (1/2-[address] depression in leads 1, aVL, V4 and V5) - Patient's Progress Pain Medication Addressed: POSITIVE: Not Applicable Re-Examine Time: 14:25 Re-Examine Comment: The patient was given 40 mg of Lasix IV with good diuretic response; about 300 mL of clear urine measured in urimeter. Blood cultures were drawn and patient was also given a gram of Rocephin. Patient feels much better on discharge and lungs are somewhat clearer. Case was discussed with hospitalist on-call, Dr. Ortega, who has admitted the patient for further evaluation and treatment. Status: POSITIVE: Improved, Re-Examined Air Movement: POSITIVE: Fair - Consult Consult (If Yes, Name of Consulting MD & Time Called): Yes (Dr. Ortega, hospitalist, [id number]) Consulting MD will see pt:: POSITIVE: [facility] [place] Counseled: POSITIVE: Patient, Family (Son and daughter), RE: Lab Results, RE: Radiology Results, RE: DX, RE: Need for F/U Patient Care Time - Estimated PCT Patient Care Time (In Minutes): 50 Vital Signs - Recent Vital Signs Vital Signs: Vital Signs (Last 8 hours) Temp Pulse Pulse Resp BP BP Pulse Ox 10/10/18 16:22 98.2 F 81 18 178/83 94 10/10/18 15:40 97 F 79 22 145/80 98 10/10/18 15:30 83 18 10/10/18 13:21 98 18 10/10/18 13:20 98 18 90 10/10/18 12:31 97.0 F 105 H 28 H 169/92 83 - VS Reviewed Vital Signs Reviewed: Yes Discharge Clinical Impression: Congestive heart failure, Elevated troponin, COPD (chronic obstructive pulmon juana disease), Chronic obstructive lung disease Coronary artery disease Qualifiers: Coronary Disease-Associated Artery/Lesion type: bypass graft, autologous artery Associated angina: without angina Qualified Code(s): I25.810 - Atherosclerosis of coronary artery bypass graft(s) without angina pectoris Discharge Disposition: Admit to Inpatient Condition: Fair Date Decision to Admit to Inpatient: 10/10/18 Time Decision to Admit to Inpatient: 14:20
[2018-10-10] MEDS ORDERED: HEPARIN 500 UNIT/5 ML SYRINGE FOR CENTRAL LINE IVP PRN (18:59)
[2018-10-10] MEDS: METOPROLOL SUCCINATE 25 MG SR 24H TABLET PO SCH (21:13)
[2018-10-10] MEDS: Mirtazapine Tab 15 MG TAB PO SCH (21:13)
[2018-10-10] MEDS: Warfarin Tab 2 MG TAB PO SCH (21:14)
[2018-10-10] MEDS: Rosuvastatin Tab 20 MG TAB PO SCH (21:14)
[2018-10-11] MEDS: LEVOTHYROXINE 75 MCG TABLET PO SCH (05:26)
[2018-10-11 06:33] LABS: Hematocrit [HCT] 31.7 % (37.0-47.0); Hemoglobin [HGB] 10.1 g/dL (12.0-16.0); MEAN CORPUSCULAR HEMOGLOBIN 25.1 PG (27-31); MEAN CORPUSCULAR HGB CONC 31.9 g/dL (33-37); MEAN CORPUSCULAR VOLUME 78.7 FL (81-99); MEAN PLATELET VOLUME 11.7 FL (7.4-12.2); RED BLOOD COUNT 4.03 10^6/uL (4.20-5.40)
[2018-10-11] MEDS: OMEPRAZOLE 40 MG CAPSULE PO SCH (06:42)
[2018-10-11] MEDS: LOSARTAN 50 MG TABLET PO SCH (06:42)
[2018-10-11 06:59] LABS: PLATELET MORPHOLOGY COMMENT SEE COMMENTS (NORM); WBC MORPHOLOGY COMMENT SEE COMMENTS (NORM)
[2018-10-11 07:00] LABS: RBC MORPHOLOGY COMMENT SEE COMMENTS (NORM)
[2018-10-11] MEDS ORDERED: FUROSEMIDE 10 MG/1 ML - 4 ML IVP SCH (07:00)
[2018-10-11 07:01] LABS: BAND NEUTROPHILS % 2 % (0-10); BASOPHILS % (MANUAL) 0 % (0-1); EOSINOPHILS % (MANUAL) 6 % (0-8); METAMYELOCYTES % 0 %; MONOCYTES % (MANUAL) 3 % (0-12); MYELOCYTES % 0 %; NEUTROPHILS % (MANUAL) 87 % (50-80); PROMYELOCYTES % 0 %
[2018-10-11 07:37] LABS: BLOOD UREA NITROGEN 37 mg/dL (7-22); BUN/CREATININE RATIO 26.42 (6-20); SERUM ALBUMIN 3.5 g/dL (3.5-4.8)
[2018-10-11] MEDS: METOPROLOL SUCCINATE 25 MG SR 24H TABLET PO SCH ×2 (08:22→21:40)
[2018-10-11] MEDS: CHOLECALCIFEROL 1000 IU TABLET PO SCH (08:22)
[2018-10-11] MEDS: VENLAFAXINE XR 75 MG CAP PO SCH (08:22)
[2018-10-11] MEDS: Spironolactone Tab 25 MG TAB PO SCH (08:23)
[2018-10-11] MEDS: AZITHROMYCIN 250 MG TABLET PO SCH (08:23)
--- NOTE | 2018-10-11 09:17 | PDOC(PROG) ---
Date of Service: 10/11/18 Time of Service: 09:20 Interval History: Subjective She feels better today. She is denying shortness of breath today. Denying chest pain. No more nausea vomiting. She did eat she said she had oatmeal. She said since he had her surgery is not eating much mainly oatmeal. Objective : Data - Labs CBC and BMP: 10/11/18 06:25 10/11/18 06:25 Objective : Exam - General General Appearance: No Acute Distress, Cooperative - Head Head Exam: Normal Inspection - Eye Eye Exam: Normal Appearance - ENT ENT Exam: Normal Exam - Neck Neck Exam: Normal Inspection - Respiratory Additional Respiratory Exam Details: Few crackles at the bases - Cardiovascular Cardiovascular Exam: RRR Additional Cardiovascular Details: Prosthetic heart sound heard - GI/Abdominal GI/Abdominal Exam: Normal Bowel Sounds, Non Tender, Non Distended, Soft, No Organomegaly - Rectal Rectal Exam: Deferred - External Exam: Deferred Exam: Deferred - Extremities Extremities Exam: Normal Inspection - Back Back Exam: Normal Inspection - Neurological Neurological Exam: Alert, Oriented x 3, Normal Gait, CN II-XII Intact, No Facial Droop, Speech Intact / Clear - Psychiatric Psychiatric Exam: Normal Affect - Integumentary Integumentary Exam: Normal Color Assessment and Plan - Patient Problems (1) CHF (congestive heart failure) Current Visit: Yes Status: Acute Comment: Creatinine went up to 1.4. I think we'll cut back on the Lasix to once a day. We'll check a BNP and chest x-ray tomorrow. She will need an echo however we don't have the capability to do it until Friday. Code(s): I50.9 - Heart failure, unspecified (2) H/O prosthetic aortic valve replacement Current Visit: Yes Status: Acute Comment: Continue Coumadin Code(s): Z95.2 - Presence of prosthetic heart valve (3) Hypertension Current Visit: Yes Status: Acute Comment: Same medications Code(s): I10 - Essential (primary) hypertension (4) Hypothyroidism Current Visit: Yes Status: Acute Comment: Same med Code(s): E03.9 - Hypothyroidism, unspecified (5) Elevated troponin Current Visit: Yes Status: Acute Comment: It did go down today. She may need to have a stress test later on down the road. Code(s): R74.8 - Abnormal levels of other serum enzymes
[2018-10-11] MEDS ORDERED: cefTRIAXone Inj 1 GM in Sodium Chloride 0.9% 100 ML IV SCH (14:00)
[2018-10-11] MEDS: Mirtazapine Tab 15 MG TAB PO SCH (21:39)
[2018-10-11] MEDS: Warfarin Tab 2 MG TAB PO SCH (21:39)
[2018-10-11] MEDS: Rosuvastatin Tab 20 MG TAB PO SCH (21:40)
[2018-10-12 01:13] VITALS: TEMP 97.3
[2018-10-12] MEDS: LEVOTHYROXINE 75 MCG TABLET PO SCH (05:16)
[2018-10-12 05:46] LABS: BASOPHILS # (AUTO) 0.02 10*3/UL; BASOPHILS % (AUTO) 0.3 % (0-1); EOSINOPHILS # (AUTO) 1.61 10*3/UL; EOSINOPHILS % (AUTO) 22.7 % (0-8); Hematocrit [HCT] 31.7 % (37.0-47.0); Hemoglobin [HGB] 9.8 g/dL (12.0-16.0); LYMPHOCYTES # (AUTO) 0.84 10*3/uL; MEAN CORPUSCULAR HEMOGLOBIN 24.6 PG (27-31); MEAN CORPUSCULAR HGB CONC 30.9 g/dL (33-37); MEAN CORPUSCULAR VOLUME 79.6 FL (81-99); MEAN PLATELET VOLUME 11.8 FL (7.4-12.2); MONOCYTES # (AUTO) 0.42 10*3/UL (0.3-0.8); MONOCYTES % (AUTO) 5.9 % (5-15); NEUTROPHILS # (AUTO) 4.19 10*3/UL; NEUTROPHILS % (AUTO) 59.2 % (50-80); RED BLOOD COUNT 3.98 10^6/uL (4.20-5.40)
[2018-10-12 05:57] LABS: BLOOD UREA NITROGEN 46 mg/dL (7-22)
[2018-10-12 06:55] LABS: PLATELET MORPHOLOGY COMMENT NORMAL MORPHOLOGY (NORM); RBC MORPHOLOGY COMMENT NORMAL MORPHOLOGY (NORM); WBC MORPHOLOGY COMMENT NORMAL MORPHOLOGY (NORM)
[2018-10-12] MEDS: LOSARTAN 50 MG TABLET PO SCH (07:06)
[2018-10-12] MEDS: OMEPRAZOLE 40 MG CAPSULE PO SCH (07:06)
[2018-10-12 07:10] VITALS: BP 138/61; RESP 18
[2018-10-12] MEDS: Spironolactone Tab 25 MG TAB PO SCH (08:30)
[2018-10-12] MEDS: AZITHROMYCIN 250 MG TABLET PO SCH (08:30)
[2018-10-12] MEDS: VENLAFAXINE XR 75 MG CAP PO SCH (08:30)
[2018-10-12] MEDS: METOPROLOL SUCCINATE 25 MG SR 24H TABLET PO SCH (08:56)
[2018-10-12] MEDS ORDERED: FUROSEMIDE 10 MG/1 ML - 4 ML IVP SCH (09:00)
--- NOTE | 2018-10-12 09:10 | DI ---
XR CXR 2VW PA/LAT 10/12/2018 7:00 AM History: [facility] [place] ^shortness of bretah, F/U Comparison: 10/10/2018, 07/17/2018. Findings: PA and lateral views of the chest demonstrate patchy bibasilar opacities, stable to slightl y decreased compared to most recent imaging. There is no pneumothorax or pleural effusion. The cardio mediastinal silhouette is enlarged with increased pulmonary vasculature. Retrocardiac density most li sharmaine representing a hiatal hernia is not significantly changed. The osseous structures are not signif icantly changed. There is an accessed left chest Port-A-Cath with the tip projecting over the superio r vena cava. The patient is status post median sternotomy with a prosthetic heart valve. Aortic stent graft projects over the upper abdomen. Impression: 1. Cardiomegaly with increased pulmonary vasculature, findings associated with heart failure. 2. Patchy bibasilar opacities, stable to slightly decreased compared to most recent imaging.
[2018-10-12] MEDS: CHOLECALCIFEROL 1000 IU TABLET PO SCH (09:19)
--- NOTE | 2018-10-12 10:47 | DCSUMMARY ---
Hospitalization Summary Admit Date: 10/10/2017 Discharge Date: 10/12/18 Primary Diagnosis:: cardiorenal syndrome Hospital Course: This very pleasant 73-year-old female that came in on 10/10/2017 with sudden onset shortness of breath and respiratory failure that was acute. She was admitted, presumably with pneumonia and congestive heart failure with a brain natruretic peptide up above 40,000. She was diuresed with Lasix but her creatinine worsened from 1.1 on admission to 2.0 today. She only put out about 750 mL of urine measured yesterday. Only about 240 so far today. 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 I spoke with the hospitalist at [facility] and she agreed to accept the patient. The patient was willing to go for further evaluation. Today, no completes of chest pain, shortness breath, nausea or vomiting. Assessment and Plan: 1. As per discharge assessments noted 2. Disposition: Patient is discharged to [facility] 3. Condition on discharge, stable and improved to the best of our ability, but certainly her condition could deteriorate 4. Diet: regular diet 5. Activities: As per physician's [facility] 6. Follow-Up: 1. Patient needs to establish with primary care physician in [place] upon her move there. 7. Medications at the Time of Discharge: Active Medications Active Medications Generic Name Dose Route Start Last Admin Trade Name Ran PRN Reason Stop Dose Admin Acetaminophen 650 mg 10/10/18 16:35 Tylenol PO Q6H PRN Pain or Fever Azithromycin 250 mg 10/11/18 09:00 10/12/18 08:30 Zithromax PO 10/14/18 09:01 250 mg DAILY BRYSON Administration Cholecalciferol 2,000 iu 10/11/18 09:00 10/12/18 09:19 Vitamin D3 PO 2,000 iu DAILY BRYSON Administration Heparin Sodium (Porcine) 500 unit 10/10/18 18:59 10/11/18 14:35 Heparin Lock Inj (For Central Line) IVP 500 unit DAILY PRN Administration Flush Sodium Chloride 25 mls @ 200 mls/hr 10/10/18 16:35 Normal Saline 0.9% IV .Post Infusion PRN Flush Ceftriaxone Sodium 2 gm/ 100 mls @ 200 mls/hr 10/12/18 10:45 Sodium Chloride IV Q24H BRYSON Levothyroxine Sodium 75 mcg 10/11/18 05:30 10/12/18 05:16 Synthroid PO 75 mcg DAILY@0530 BRYSON Administration Lidocaine HCl 10 ml 10/10/18 14:27 Xylocaine Uro-Ject 2% TOPICAL ONCE PRN Discomfort catheter insertion Lidocaine HCl 0.5 ml 10/10/18 16:35 Lidocaine Buffered Inj SUBD ONCE PRN IV Starts Metoprolol Succinate 75 mg 10/10/18 21:00 10/12/18 08:56 Toprol Xl PO Not Given BID BRYSON Mirtazapine 7.5 mg 10/10/18 21:00 10/11/18 21:39 Remeron PO 7.5 mg BEDTIME BRYSON Administration Omeprazole 40 mg 10/11/18 06:30 10/12/18 07:06 Prilosec PO 40 mg DAILY@0630 BRYSON Administration Rosuvastatin Calcium 40 mg 10/10/18 21:00 10/11/18 21:40 Crestor PO 40 mg BEDTIME BRYSON Administration Venlafaxine HCl 150 mg 10/11/18 09:00 10/12/18 08:30 Effexor Xr PO 150 mg DAILY BRYSON Administration Warfarin Sodium 4 mg 10/10/18 21:00 10/11/18 21:39 Coumadin PO 4 mg BEDTIME BRYSON Administration I'm stopping spironolactone. I am also stopping losartan. 8. Time, care, counseling and coordination of care for this discharge is greater than 30 minutes. Exam - Vitals Vital Signs: Vital Signs Temperature 97.3 F Temperature Source Temporal Artery Scan Pulse Rate [Apical] 59 Pulse Rate [Pulse Oximeter] 59 Pulse Rate [Telemetry] 69 Pulse Rate 49 Respiratory Rate 18 Blood Pressure [Left Arm] 138/61 Blood Pressure 145/80 Pulse Ox 96 Oxygen Flow Rate 2 Oxygen Delivery Method Nasal Cannula Height 5 ft 5 in Weight 141 lb 9.6 oz - General General Appearance: No Acute Distress, Cooperative - Eye Eye Exam: POSITIVE: No Scleral Icterus - ENT ENT Exam: POSITIVE: Mucous Membranes Moist - Neck Neck Exam: JVP is not Raised - Respiratory Respiratory Exam: POSITIVE: Breathing Non Labored, Normal To Percussion, Coarse Breath Sounds - Cardiovascular Cardiovascular Exam: POSITIVE: RRR, No Gallops, No Rubs, Systolic Murmur, Clicks - GI/Abdominal GI/Abdominal Exam: POSITIVE: Normal Bowel Sounds, Non Tender, Non Distended, Soft - Extremities Extremities Exam: POSITIVE: No Clubbing Present, No Edema Present, No Cyanosis Present - Neurological Neurological Exam: POSITIVE: Alert, Oriented x 3, No Facial Droop, Speech Intact / Clear, Moves All Extremities Equally Data Peritnent Studies: 10/10/18 10/10/18 10/10/18 13:00 13:00 13:00 WBC 23.34 H Hgb Hct Plt Count Neutrophils % (Manual) Band Neutrophils % PT INR Sodium Potassium Chloride Carbon Dioxide Anion Gap BUN Creatinine BUN/Creatinine Ratio Glucose Calculated Osmolality Calcium Troponin I 0.113 H NT-Pro-B Natriuret Pep 26504 H Total Protein Albumin Globulin Albumin/Globulin Ratio Urine Protein Urine Occult Blood Urine RBC Urine Casts Urine Mucus 10/10/18 10/10/18 10/10/18 13:00 14:50 20:45 WBC Hgb Hct Plt Count Neutrophils % (Manual) Band Neutrophils % PT INR Sodium Potassium Chloride Carbon Dioxide Anion Gap BUN 29 H Creatinine 1.1 BUN/Creatinine Ratio Glucose Calculated Osmolality Calcium Troponin I 0.228 H* NT-Pro-B Natriuret Pep Total Protein Albumin Globulin Albumin/Globulin Ratio Urine Protein 100 A Urine Occult Blood Large H Urine RBC 15-20 Urine Casts Few Urine Mucus Moderate 10/11/18 10/11/18 10/11/18 06:25 06:25 06:25 WBC Hgb Hct Plt Count Neutrophils % (Manual) 87 H Band Neutrophils % 2 PT INR Sodium Potassium Chloride Carbon Dioxide Anion Gap BUN Creatinine BUN/Creatinine Ratio Glucose Calculated Osmolality Calcium Troponin I 0.175 H* NT-Pro-B Natriuret Pep Total Protein 5.9 L Albumin 3.5 Globulin 2.4 L Albumin/Globulin Ratio 1.40 Urine Protein Urine Occult Blood Urine RBC Urine Casts Urine Mucus 10/11/18 10/12/18 10/12/18 06:25 05:25 05:25 WBC 7.09 Hgb 9.8 L Hct 31.7 L Plt Count 193 Neutrophils % (Manual) Band Neutrophils % PT 18.7 H INR 1.92 Sodium 134 L Potassium 4.5 Chloride 102 Carbon Dioxide 26 Anion Gap 6 BUN 46 H Creatinine 2.0 H BUN/Creatinine Ratio 23.00 H Glucose 86 Calculated Osmolality 288.0 Calcium 9.3 Troponin I NT-Pro-B Natriuret Pep Total Protein Albumin Globulin Albumin/Globulin Ratio Urine Protein Urine Occult Blood Urine RBC Urine Casts Urine Mucus 10/12/18 05:25 WBC Hgb Hct Plt Count Neutrophils % (Manual) Band Neutrophils % PT INR Sodium Potassium Chloride Carbon Dioxide Anion Gap BUN Creatinine BUN/Creatinine Ratio Glucose Calculated Osmolality Calcium Troponin I NT-Pro-B Natriuret Pep 22078 H Total Protein Albumin Globulin Albumin/Globulin Ratio Urine Protein Urine Occult Blood Urine RBC Urine Casts Urine Mucus Casts observed were hyaline casts Procedures: [address] [facility] [place] [address] PH: DD: [phone] FAX: [phone] ~DIAGNOSTIC IMAGING REPORT~ Patient: Jacklyn Yancey : 1945 Sex: F Age: 73 Exam Name: XR CXR 2VW PA/LAT Exam Date: 10/12/18 Report # : [id number] CPT Code: 23857 EMR/MR #: [id number] Ordering: Shaun Simpson Admiting: SHAUN SIMPSON MD. Primary: Km Real MD Attending: SHAUN SIMPSON MD. - Signed XR CXR 2VW PA/LAT 10/12/2018 7:00 AM History: [facility] DI ^shortness of rosa, F/U Comparison: 10/10/2018, 07/17/2018. Findings: PA and lateral views of the chest demonstrate patchy bibasilar opacities, stable to slightly decreased compared to most recent imaging. There is no pneumothorax or pleural effusion. The cardiomediastinal silhouette is enlarged with increased pulmonary vasculature. Retrocardiac density most likely representing a hiatal hernia is not significantly changed. The osseous structures are not significantly changed. There is an accessed left chest Port-A-Cath with the tip projecting over the superior vena cava. The patient is status post median sternotomy with a prosthetic heart valve. Aortic stent graft projects over the upper abdomen. Impression: 1. Cardiomegaly with increased pulmonary vasculature, findings associated with heart failure. 2. Patchy bibasilar opacities, stable to slightly decreased compared to most recent imaging. Dictated By: 10/12/18 0859 SELENE LOPEZ MD. Signed By: 10/12/18 0910 SELENE LOPEZ MD. [address] [facility] [place] [address] PH: DD: [phone] FAX: [phone] ~DIAGNOSTIC IMAGING REPORT~ Patient: Jacklyn Yancey : 1945 Sex: F Age: 73 Exam Name: XR CXR 2VW PA/LAT Exam Date: 10/10/18 Report # : [id number] CPT Code: 09501 EMR/MR #: [id number] Ordering: MICHAEL LR Admiting: Primary: Km Real MD Attending: Signed EXAM: XR Chest, 2 Views CLINICAL HISTORY: ITS.REASON dyspnea Physician Notes: Tech Comments: TECHNIQUE: Frontal and lateral views of the chest. COMPARISON: Chest radiograph on 03/31/2018 FINDINGS: Hardware: Left-sided Port-A-Cath terminates in the region of the SVC. Lungs/pleura: Interstitial and hazy opacities throughout the lungs. No pleural effusion or pneumothorax. Heart/mediastinum: Stable mild enlargement of the cardiomediastinal silhouette. Atherosclerotic calcifications in the aorta. Median sternotomy and CABG changes. Prosthetic heart valve. Soft tissues: Unremarkable. Bones: Stable kyphoplasty changes in the midthoracic spine. Stable anterior wedging of the T12 vertebral body. Degenerative changes of the acromioclavicular joints. Osteopenia. Upper abdomen: Aortic stent graft. IMPRESSION: Interstitial and hazy opacities throughout the lungs may represent pulmonary edema and pulmonary vasculature congestion. Infectious/ inflammatory process is not excluded. Dictated By: Karly Beasley MD. Signed By: 10/10/18 1409 Karly Beasley MD. Patient Problems - Patient Problem List (1) Cardiorenal syndrome with renal failure Current Visit: Yes Status: Acute Code(s): I13.10 - Hypertensive heart and chronic kidney disease without heart failure, with stage 1 through stage 4 chronic kidney disease, or unspecified chronic kidney disease; N19 - Unspecified kidney failure Category: Medical (2) Acute renal failure Current Visit: Yes Status: Acute Code(s): N17.9 - Acute kidney failure, unspecified Qualifiers: Acute renal failure type: unspecified Qualified Code(s): N17.9 - Acute kidney failure, unspecified Category: Medical (3) CHF (congestive heart failure) Current Visit: Yes Status: Acute Code(s): I50.9 - Heart failure, unspecified Qualifiers: Heart failure type: unspecified Heart failure chronicity: acute on chronic Qualified Code(s): I50.9 - Heart failure, unspecified Category: Medical (4) Acute respiratory failure Current Visit: Yes Status: Acute Code(s): J96.00 - Acute respiratory failure, unspecified whether with hypoxia or hypercapnia Qualifiers: Respiratory failure complication: unspecified whether with hypoxia or hypercapnia Qualified Code(s): J96.00 - Acute respiratory failure, unspecified whether with hypoxia or hypercapnia Category: Medical (5) H/O prosthetic aortic valve replacement Current Visit: Yes Status: Acute Code(s): Z95.2 - Presence of prosthetic heart valve Category: Surgical (6) Hypertension Current Visit: Yes Status: Acute Code(s): I10 - Essential (primary) hypertension Qualifiers: Hypertension type: essential hypertension Qualified Code(s): I10 - Essenti al (primary) hypertension Category: Medical (7) Elevated troponin Current Visit: Yes Status: Acute Code(s): R74.8 - Abnormal levels of other serum enzymes Category: Medical (8) Chronic obstructive lung disease Current Visit: Yes Status: Acute Code(s): J44.9 - Chronic obstructive pulmonary disease, unspecified Category: Medical (9) Coronary artery disease Current Visit: Yes Status: Acute Code(s): I25.10 - Atherosclerotic heart disease of [place] coronary artery without angina pectoris Qualifiers: Coronary Disease-Associated Artery/Lesion type: bypass graft, autologous artery Associated angina: without angina Qualified Code(s): I25.810 - Atherosclerosis of coronary artery bypass graft(s) without angina pectoris Category: Medical
[2018-10-12] MEDS ORDERED: cefTRIAXone Inj 2 GM in Sodium Chloride 0.9% 100 ML IV SCH (11:00)
[2018-10-12 11:49] VITALS: O2SAT 99
== END 2018-10-12 12:23 | disposition short-term general hospital (02) | DRG 304 ==
LOC: ER 12:31 → MED/SURG 15:28
PROVIDERS: ADMIT Internal Medicine; ATTEND Internal Medicine